=== PATIENT | female | born 1945 | race Caucasian/White ===

== ENCOUNTER → 2020-01-10 11:26 | Outpatient (BNVA) | payer MEDICARE, MEDICAID, SELFPAY | PROVIDERS: Family Provider Physician Assistant Medical; Visit Provider Nurse Practitioner Family | DX: I10 Essential (primary) hypertension (principal); I50.9 Heart failure, unspecified; R53.83 Other fatigue; E78.2 Mixed hyperlipidemia; Z79.899 Other long term (current) drug therapy; L03.90 Cellulitis, unspecified; D64.9 Anemia, unspecified; R60.9 Edema, unspecified; R06.02 Shortness of breath | CPT/HCPCS: 36415; 80053; 80061; 81001; 82607; 83036; 83540; 83880; 84443; 85025 ==

== ENCOUNTER 2020-09-28 18:55 | Inpatient (IN) | payer MEDICARE, MEDICAID, SELFPAY ==
[2020-09-28] VITALS (9 sets, daily range): BP systolic 78–164; BP diastolic 51–117; PULSE 97–124; RESP 16–30; TEMP 38.5; O2SAT 84–96; BMI 40.2
--- NOTE | 2020-09-28 | USCV_ITS ---
Yamileth Edge Age: 75 Gender: F : 1945 Exam Date: 09/28/2020 20:40 Ordering Phys: Technologist: Mamadou Rizvi Exam Location: [facility]_ Indication: DVT RIGHT LEFT Brachial 135.00 mmHg Brachial 130.00 mmHg Pressure (mmHg) Waveform Pressure (mmHg) Waveform 135.00 EDUCATIONAL ADVISER 135.00 135.00 DPA 135.00 1.00 Ankle/Brachial Index 1.00 FINDINGS Normal resting ABIs bilaterally CONCLUSIONS No significant arterial obstruction, based on the above findings. Dr Abdullahi Ag MD [facility] (Electronically Signed) Final Date: 29 September 2020 12:31 C MTDD
--- NOTE | 2020-09-28 19:01 | XRR_ITS ---
PROCEDURE INFORMATION: Exam: XR Chest, 1 View Exam date and time: 09/28/2020 7:44 PM Age: 75 years old Clinical indication: Shortness of breath; Patient HX: SOB, weakness, confused, back pain; Additional info: Dyspnea/hypoxia TECHNIQUE: Imaging protocol: XR of the chest Views: 1 view. COMPARISON: No relevant prior studies available. FINDINGS: Lungs: Asymmetric left basilar airspace/pleural disease. Interstitial prominence. Heart/Mediastinum: Cardiomegaly. Bones/joints: Left shoulder arthroplasty. Degenerative change and scoliosis. XR/XR chest 1V portable [id number] IMPRESSION: Asymmetric left basilar airspace/pleural disease and cardiomegaly.
--- NOTE | 2020-09-28 19:09 | ECG_ITS ---
[facility] Test Date: 2020-09-28 Pat Name: Yamileth Edge Department: Room: Gender: Female Load Tallier: : 1945 Requested By: Bakari Martinez Order Number: [id number] Tiffany MD: Abdullahi Ag M.D. Measurements Intervals [place] Rate: 127 P: -79 SC: 126 QRS: -72 QRSD: 146 T: 96 QT: 297 QTc: 432 Interpretive Statements Possible multifocal atrial tachycardia INTRAVENTRICULAR CONDUCTION DELAY [130+ ms QRS DURATION] No previous ECG available for comparison Electronically Signed On 09-29-2020 16:05:19 SENIOR PLANNING MANAGER by Abdullahi Ag M.D. [id number]
--- NOTE | 2020-09-28 19:09 | W.ED.GENADLT ---
HPI - General Adult General: Chief complaint: Fever Stated complaint: FALL/ WEAKNESS/ TEMP Time Seen by Provider: 09/28/20 19:01 History of Present Illness: HPI narrative: The patient is a 75-year-old female with past medical history CHF and lower extremity edema with cellulitis comes to the ER after multiple falls at home she did not want to come to the ER but family made her. Her right lower extremity is erythematous from ankle to proximal calf. She has bilateral edema 2+ and she is satting in the mid 80s on room air with a heart rate 113 and temperature 101.3 Associated symptoms: Reports dyspnea and rash (Right lower extremity redness); Deny chest pain, confusion, headache(s) or palpitations Review of Systems General: Reports: 10 or more systems reviewed and unremarkable except in HPI and below Const: Denies: fatigue Eyes: Denies: change in vision, blurry vision or eye redness ENMT: Denies: throat pain, swelling of lips/tongue, ear or mastoid pain or nasal congestion Card: Denies: chest pain, palpitations, irregular heart rhythm, edema, dyspnea on exertion or orthopnea Resp: Reports: dyspnea; Denies: productive cough or non-productive cough GI: Denies: abdominal pain, diarrhea or GI cramping : Denies: flank pain, difficulty voiding, urinary frequency or urinary urgency Musc: Denies: neck pain, back pain, extremity pain, joint pain, joint redness, limited range of motion or muscle weakness Skin/Breast: Reports: rash (Right lower extremity redness); Denies: pruritus, erythema, skin pain or skin tenderness Neuro: Denies: headache(s), numbness in extremities, weakness in extremities, sensory changes, difficulty walking, dizziness, confusion or Slurred speech present Psych: Denies: anxiety or depression Endo: Denies: polyuria All/Imm: Denies: urticaria, throat swelling or tongue swelling PFSH ED PFSH: Medical History (Updated 09/29/20 @ 01:16 by Bakari Martinez MD) Anemia Aortic root dilatation Cellulitis Congestive heart failure Essential hypertension Fatigue Left ventricular dysfunction Left ventricular hypertrophy Medication management Mild aortic insufficiency Mitral insufficiency Mixed hyperlipidemia Pulmonary hypertension Surgical History (Updated 01/10/20 @ 08:46 by RENALDO Andino) History of cataract extraction History of shoulder surgery Social History (Updated 01/10/20 @ 08:36 by PARTH Danielle Smoking and tobacco status: never smoked Second hand smoke exposure: No Alcohol intake: never Desire information about alcohol rehabilitation?: No Counseling given: No Desire information about substance/drug rehabilitation?: No Counseling given: No Physical Exam Const: COMMON NORMALS: no acute distress, average body habitus, patient oriented x3, no limitations, healthy appearing, alert and well nourished GENERAL APPEARANCE: well kempt, well developed and anxious NUTRITIONAL APPEARANCE: obese ORIENTATION/CONSCIOUSNESS: Yes awake, Yes oriented to person, Yes oriented to place and Yes oriented to time HENMT: COMMON NORMALS: normocephalic, external ears normal and Normal external nose present HEAD & SCALP: normal to inspection and normocephalic NOSE: Normal external nose present EXTERNAL EAR: Yes external ears normal MOUTH: Normal oral and palatal mucosa present THROAT: posterior oropharynx normal Eye: COMMON NORMALS: Equal, round and reactive pupils present and EOMs intact bilaterally GENERAL EYE: appearance normal, both eyes and all related structures PUPIL: Yes Equal, round and reactive pupils present Neck/C-Spine: COMMON NORMALS: full ROM, no lymphadenopathy, no meningeal signs and no JVD GENERAL: Yes normal visual inspection Lymph: LYMPHATIC: no lymphadenopathy noted Chest: COMMONS NORMALS: normal inspection of the chest and normal palpation of entire chest wall Resp: COMMON NORMALS: normal respiratory effort, No retractions, No use of accessory muscles, clear to auscultation bilaterally and percussion normal EFFORT & INSPECTION: Yes able to speak in complete sentences AUSCULTATION: clear to auscultation bilaterally PERCUSSION: percussion normal Cardio: COMMON NORMALS: no JVD, S1 normal heart sound present, S2 normal heart sound present and Peripheral pulses 2+ throughout RATE: tachycardic RHYTHM: other HEART SOUNDS: S1 normal heart sound present and S2 normal heart sound present PERIPHERAL PULSES: Peripheral pulses 2+ throughout GI: COMMON NORMALS: Normal to inspection, nondistended, normoactive bowel sounds present, Soft to palpation, non-tender and no masses INSPECTION: Yes normal to inspection PALPATION: Yes Soft to palpation : COMMON NORMALS: Yes no CVA tenderness BLADDER/KIDNEY EXAM: Yes no CVA tenderness Back/Pelvis: COMMON NORMALS: no CVA tenderness, thoracic and lumbar spine normal to inspection, no thoracic nor lumbar tenderness and thoraco-lumbar ROM normal Extremity: COMMON NORMALS: normal to inspection, full ROM, capillary refill normal, no joint enlargement and no pedal edema NARRATIVE EXTREMITY EXAM: Cellulitis to right lower extremity from ankle to proximal calf. Associated tenderness. GENERAL: Yes normal exam except as noted Neuro: COMMON NORMALS: patient oriented x3, CN's II-XII intact bilaterally, moves all extremities, no focal motor deficits, no sensory deficits noted and gait normal SENSORIUM/ORIENTATION: Yes alert, Yes oriented to person, Yes oriented to place and Yes oriented to time MENINGEAL SIGNS: Yes no meningeal signs Psych: COMMON NORMALS: mental status grossly normal, Normal thought process present, cooperative, normal affect and speech normal APPEARANCE: Yes well kempt ATTITUDE: Yes calm SPEECH: Yes normal speech THOUGHT PROCESS: Normal thought process present Skin: COMMON NORMALS: no rashes or lesions noted GENERAL SKIN EXAM: no rashes or lesions noted Course Vital Signs: Vital signs: Vital Signs Temperature 98.8 F 09/29/20 00:00 Pulse Rate 98 09/29/20 00:00 Respiratory Rate 18 09/28/20 22:33 Blood Pressure 118/75 09/29/20 00:00 Pulse Oximetry 94 09/29/20 00:00 MDM - General Adult MDM Narrative: Medical decision making narrative: The patient comes to the ER with a large right lower extremity cellulitis. Also white count 23.9. After arrival she began to have hypotension with 80s over 60s blood pressures. She was given a liter of fluids which improved that and started on Vanco and Zosyn. She refused chest CT and x-rays of her pelvis. I ordered norepinephrine but her pressure normalized after the fluids. Discussed with Dr. Cruz who accepts to the ICU. Lab Data: Labs: Lab Results 09/28/20 09/28/20 09/28/20 Range/Units 19:54 19:59 19:59 WBC 23.9 H (4.0-10.0) 10^3/ uL RBC 4.11 (4.1-5.3) 10^6/u L Hgb 11.0 L (11.5-15.3) g/dL Hct 36.4 L (37.0-47.0) % MCV 88.6 (81-99) fL MCH 26.8 L (28.0-34.0) pg MCHC 30.2 (30.0-36.0) g/dL RDW 13.2 (12.1-15.1) % Plt Count 316 (130-400) 10^3/c mm MPV 9.9 (7.4-10.4) fL Neut % (Auto) 89.6 % Lymph % (Auto) 3.2 % [place] % (Auto) 5.1 % Eos % (Auto) 0.0 % Baso % (Auto) 0.2 % Neut # (Auto) 21.43 H (1.8-7.7) 10^3/u L Lymph # (Auto) 0.8 (0.8-4.8) 10^3/u L [place] # (Auto) 1.2 H (0.2-0.9) 10^3/u L Eos # (Auto) 0.0 (0.0-0.8) 10^3/u L Baso # (Auto) 0.1 (0.0-0.1) 10^3/u L Nucleated RBC % (a uto) 0 % Nucleated RBCs # 0.0 /100WBC D-Dimer 4.04 H (0-0.59) ug/mIFE U Sodium (136-145) mmol/L Potassium (3.5-5.1) mmol/L Chloride (98-107) mmol/L Carbon Dioxide (22-29) mmol/L Anion Gap (5-19) BUN (8-23) mg/dL Creatinine (0.5-0.9) mg/dL GFR Calculation Glucose (65-115) mg/dL Calculated Osmolal ity (285-295) mOsm/k g Lactate (0.5-2.2) mmol/L Calcium (8.5-10.5) mg/dL Total Bilirubin (0.15-1.2) mg/dL AST (0-32) U/L ALT (0-33) U/L Alkaline Phosphata se (35-105) IU/L Troponin T Baselin e (0-10) ng/L Troponin T 120 Min [place] (0-10) ng/L Delta Troponin T (0-10) ABS# NT-Pro-B Natriuret Pep (0-450) pg/mL Total Protein (6.6-8.7) g/dL Albumin (3.5-5.2) g/dL Globulin (1.3-4.6) g/dL Urine Color Yellow (Yellow) Urine Appearance Cloudy (CLEAR) Urine pH 5 (5-7) Ur Specific Gravit y 1.015 (1.005-1.030) Urine Protein Neg (Negative) Urine Glucose (UA) Norm (Normal) Urine Ketones Negative (Negative) Urine Blood Neg (Negative) Urine Nitrate Negative (Negative) Urine Bilirubin Neg (Negative) Urine Urobilinogen Norm (Negative) mg/dL Ur Leukocyte Eneida ase Negative (Negative) Urine RBC None (0-2) /hpf Urine WBC None (0-5) /hpf Ur Squamous Epith Cells 0-4 H (0-5) /hpf Amorphous Sediment 3+ /hpf Urine Bacteria Trace (NONE) /hpf Hyaline Casts 0-4 H /lpf 09/28/20 09/28/20 09/28/20 Range/Units 19:59 19:59 19:59 WBC (4.0-10.0) 10^3/ uL RBC (4.1-5.3) 10^6/u L Hgb (11.5-15.3) g/dL Hct (37.0-47.0) % MCV (81-99) fL MCH (28.0-34.0) pg MCHC (30.0-36.0) g/dL RDW (12.1-15.1) % Plt Count (130-400) 10^3/c mm MPV (7.4-10.4) fL Neut % (Auto) % Lymph % (Auto) % [place] % (Auto) % Eos % (Auto) % Baso % (Auto) % Neut # (Auto) (1.8-7.7) 10^3/u L Lymph # (Auto) (0.8-4.8) 10^3/u L [place] # (Auto) (0.2-0.9) 10^3/u L Eos # (Auto) (0.0-0.8) 10^3/u L Baso # (Auto) (0.0-0.1) 10^3/u L Nucleated RBC % (a uto) % Nucleated RBCs # /100WBC D-Dimer (0-0.59) ug/mIFE U Sodium 135 L (136-145) mmol/L Potassium 4.4 (3.5-5.1) mmol/L Chloride 93 L (98-107) mmol/L Carbon Dioxide 31 H (22-29) mmol/L Anion Gap 15.4 (5-19) BUN 27 H (8-23) mg/dL Creatinine 1.2 H (0.5-0.9) mg/dL GFR Calculation Not Reportable Glucose 120 H (65-115) mg/dL Calculated Osmolal ity 286 (285-295) mOsm/k g Lactate 1.1 (0.5-2.2) mmol/L Calcium 10.3 (8.5-10.5) mg/dL Total Bilirubin 0.6 (0.15-1.2) mg/dL AST 15 (0-32) U/L ALT 10 (0-33) U/L Alkaline Phosphata se 220 H (35-105) IU/L Troponin T Baselin e 83 H (0-10) ng/L Troponin T 120 Min [place] (0-10) ng/L Delta Troponin T (0-10) ABS# NT-Pro-B Natriuret Pep 2136 H (0-450) pg/mL Total Protein 7.2 (6.6-8.7) g/dL Albumin 3.4 L (3.5-5.2) g/dL Globulin 3.8 (1.3-4.6) g/dL Urine Color (Yellow) Urine Appearance (CLEAR) Urine pH (5-7) Ur Specific Gravit y (1.005-1.030) Urine Protein (Negative) Urine Glucose (UA) (Normal) Urine Ketones (Negative) Urine Blood (Negative) Urine Nitrate (Negative) Urine Bilirubin (Negative) Urine Urobilinogen (Negative) mg/dL Ur Leukocyte Eneida ase (Negative) Urine RBC (0-2) /hpf Urine WBC (0-5) /hpf Ur Squamous Epith Cells (0-5) /hpf Amorphous Sediment /hpf Urine Bacteria (NONE) /hpf Hyaline Casts /lpf 09/28/20 Range/Units 21:09 WBC (4.0-10.0) 10^3/ uL RBC (4.1-5.3) 10^6/u L Hgb (11.5-15.3) g/dL Hct (37.0-47.0) % MCV (81-99) fL MCH (28.0-34.0) pg MCHC (30.0-36.0) g/dL RDW (12.1-15.1) % Plt Count (130-400) 10^3/c mm MPV (7.4-10.4) fL Neut % (Auto) % Lymph % (Auto) % [place] % (Auto) % Eos % (Auto) % Baso % (Auto) % Neut # (Auto) (1.8-7.7) 10^3/u L Lymph # (Auto) (0.8-4.8) 10^3/u L [place] # (Auto) (0.2-0.9) 10^3/u L Eos # (Auto) (0.0-0.8) 10^3/u L Baso # (Auto) (0.0-0.1) 10^3/u L Nucleated RBC % (a uto) % Nucleated RBCs # /100WBC D-Dimer (0-0.59) ug/mIFE U Sodium (136-145) mmol/L Potassium (3.5-5.1) mmol/L Chloride (98-107) mmol/L Carbon Dioxide (22-29) mmol/L Anion Gap (5-19) BUN (8-23) mg/dL Creatinine (0.5-0.9) mg/dL GFR Calculation Glucose (65-115) mg/dL Calculated Osmolal ity (285-295) mOsm/k g Lactate (0.5-2.2) mmol/L Calcium (8.5-10.5) mg/dL Total Bilirubin (0.15-1.2) mg/dL AST (0-32) U/L ALT (0-33) U/L Alkaline Phosphata se (35-105) IU/L Troponin T Baselin e (0-10) ng/L Troponin T 120 Min [place] 89.29 H (0-10) ng/L Delta Troponin T 6.29 (0-10) ABS# NT-Pro-B Natriuret Pep (0-450) pg/mL Total Protein (6.6-8.7) g/dL Albumin (3.5-5.2) g/dL Globulin (1.3-4.6) g/dL Urine Color (Yellow) Urine Appearance (CLEAR) Urine pH (5-7) Ur Specific Gravit y (1.005-1.030) Urine Protein (Negative) Urine Glucose (UA) (Normal) Urine Ketones (Negative) Urine Blood (Negative) Urine Nitrate (Negative) Urine Bilirubin (Negative) Urine Urobilinogen (Negative) mg/dL Ur Leukocyte Eneida ase (Negative) Urine RBC (0-2) /hpf Urine WBC (0-5) /hpf Ur Squamous Epith Cells (0-5) /hpf Amorphous Sediment /hpf Urine Bacteria (NONE) /hpf Hyaline Casts /lpf Discharge Plan Discharge Patient Disposition: Admitted As Inpatient Admit Provider: Elliot Cruz Clinical Impression: Severe sepsis, Cellulitis, Acute kidney injury, Elevated troponin Condition: Stable Coding Level of Care Code ED Fisher Spear for Chg Fwd Exam Comprehensive
--- NOTE | 2020-09-28 19:39 | USCV_ITS ---
Yamileth Edge Age: 75 Gender: F : 1945 Exam Date: 09/28/2020 20:30 Ordering Phys: Bakari Martinez MD Technologist: Mamadou Rizvi Exam Location: [facility] Indication: RT LEG PAIN AND SWELLING HISTORY: Lower extremity edema. PROCEDURES: Venous duplex imaging was performed in only the right lower extremity. The following venous structures were evaluated: common femoral vein, profunda vein, proximal portion of the greater saphenous vein, superficial femoral vein, and the popliteal vein. In addition, the posterior tibial and peroneal trunk were evaluated. On the right side, the common femoral, superficial femoral, profunda femoral, popliteal, posterior tibial, greater saphenous veins and the peroneal trunk were identified and interrogated in the standard fashion. These veins were found to be easily compressible with spontaneous blood flow. No evidence of insufficiency or thrombus noted. FINDINGS: Normal 2-D Doppler and augmentation and compressibility throughout the lower extremity venous structures. Additional imaging through the proximal calf veins also reveals no thrombus. Limited evaluation of the greater saphenous vein is patent with no thrombus.. CONCLUSIONS No evidence of DVT in the above-mentioned identifiable veins. Dr Abdullahi Ag MD [facility] (Electronically Signed) Final Date: 29 September 2020 12:28 S
[2020-09-28 20:11] LABS: Basophils # 0.1 10^3/uL (0.0-0.1); Basophils % 0.2 %; Hematocrit 36.4 % (37.0-47.0); Lymphocytes # 0.8 10^3/uL (0.8-4.8); Lymphocytes % 3.2 %; Mean Corpuscular HGB Conc 30.2 g/dL (30.0-36.0); Mean Corpuscular Hemoglobin 26.8 pg (28.0-34.0); Mean Corpuscular Volume 88.6 fL (81-99); Mean Platelet Volume 9.9 fL (7.4-10.4); Monocytes # 1.2 10^3/uL (0.2-0.9); Monocytes % 5.1 %; Neutrophils # 21.43 10^3/uL (1.8-7.7); Neutrophils % 89.6 %; Nucleated Red Blood Cells % 0 %; Platelet Count 316 10^3/cmm (130-400); Red Blood Count 4.11 10^6/uL (4.1-5.3); Red Cell Distribution Width 13.2 % (12.1-15.1); White Blood Count 23.9 10^3/uL (4.0-10.0)
[2020-09-28] MEDS: acetaminophen 500 mg Tablet 1000 MG PO (20:15)
[2020-09-28] MEDS: piperacillin-tazobactam 3.375 GM in sodium chloride 0.9% (plus) 50 ML IV (20:15)
[2020-09-28 20:25] LABS: Bilirubin Urine Neg (Negative); Blood Urine Neg (Negative); Glucose Urine UA Norm (Normal); Ketones Urine Negative (Negative); Leukocyte Esterase Urine Negative (Negative); Nitrate Urine Negative (Negative); Protein Urine Neg (Negative); Specific Gravity, Urine 1.015 (1.005-1.030); Urine Appearance Cloudy (CLEAR); Urine Color Yellow (Yellow); Urobilinogen Urine Norm (Negative); pH Urine 5 (5-7)
[2020-09-28 20:26] LABS: Add Urine Microscopic? YES
[2020-09-28] MEDS: sodium chloride 0.9% 1,000 ML 999 ML IV (20:53)
[2020-09-28 20:55] LABS: Add Urine Culture? No; Amorphous Sediment Urine 3+ /hpf; Bacteria Urine TRACE /hpf; Hyaline Casts Urine 0-4 /lpf; Squamous Epithelial Cell Urine 0-4 /hpf (0-5)
[2020-09-28 21:07] LABS: Lactate (Lactic Acid level) 1.1 mmol/L (0.5-2.2)
--- NOTE | 2020-09-28 21:09 | ECG_ITS ---
[facility] Test Date: 2020-09-28 Pat Name: Yamileth Edge Department: Room: Gender: Female Business Analytics Specialist: : 1945 Requested By: Bakari Martinez Order Number: [id number] Tiffany MD: Abdullahi Ag M.D. Measurements Intervals [place] Rate: 110 P: -66 DC: 144 QRS: -61 QRSD: 133 T: 67 QT: 319 QTc: 433 Interpretive Statements ECTOPIC ATRIAL TACHYCARDIA LEFT AXIS DEVIATION [QRS AXIS < -30] INTRAVENTRICULAR CONDUCTION DELAY [130+ ms QRS DURATION] MINIMAL VOLTAGE CRITERIA FOR LVH, CONSIDER NORMAL VARIANT [MEETS CRITERIA IN ONE OF: R(aVL), S(V1), R(V5), R(V5/V6)+S(V1)] Compared to ECG 09/28/2020 19:49:35 Left-axis deviation now present Junctional tachycardia no longer present Electronically Signed On 09-29-2020 16:10:47 LOOSELEAF BINDER COVERER by Abdullahi Ag M.D. [id number]
[2020-09-28 21:12] LABS: D Dimer 4.04 ug/mIFEU (0-0.59)
[2020-09-28 21:14] LABS: Troponin(5th) Baseline 83 ng/L (0-10)
[2020-09-28 21:22] LABS: Alanine Aminotransferase 10 U/L (0-33); Albumin Level 3.4 g/dL (3.5-5.2); Alkaline Phosphatase 220 IU/L (35-105); Anion Gap 15.4 (5-19); Aspartate Amino Transferase 15 U/L (0-32); Blood Urea Nitrogen 27 mg/dL (8-23); Calcium 10.3 mg/dL (8.5-10.5); Carbon Dioxide 31 mmol/L (22-29); Chloride 93 mmol/L (98-107); Globulin 3.8 g/dL (1.3-4.6); Glucose 120 mg/dL (65-115); NT Pro B Type Natriuretic Pept 2136 pg/mL (0-450); Osmolality Calculated 286 mOsm/kg (285-295); Potassium 4.4 mmol/L (3.5-5.1); Sodium 135 mmol/L (136-145); Total Bilirubin 0.6 mg/dL (0.15-1.2); Total Protein 7.2 g/dL (6.6-8.7)
[2020-09-28] MEDS: morphine 4 mg/mL SDV 1 mL 1 MG IVP (22:33)
--- NOTE | 2020-09-28 22:46 | PC.PHAR ---
Vancomycin is dosed at 1250mg IVPB every 24 hours to produce a predicted trough level of 17.24 (population based pharmacokinetic analysis. A trough level has been ordered from the lab to be obtained before the fourth dose to confirm and adjust if needed.
[2020-09-28] MEDS: vancomycin 1,250 MG/250 ML PIGGYBACK 250 MG IV (22:57)
--- NOTE | 2020-09-28 23:04 | P.HP_ITS ---
Providers/Chief Complaint Primary Care Provider: RENALDO Owen Chief Complaint: FALL/ WEAKNESS/ TEMP History of Present Illness Yamileth Edge is a 75 year old female who carries history of redo ejection fraction heart failure, lower extremity edema, aortic regurgitation, pulmonary hypertension presented today with chief complaint of right lower extremity pain. Patient is stating that her leg swelling is chronic which has recently gotten worse she has seen needle loom operator who recommended diuretics she takes Lasix 80 mg a day, despite diuretics her leg edema has not been improving, she has been noticing more crusting, open wounds and now it has become more swollen and red. She is also noticing some purulent discharge as well. At home she also noticed fever. She is denying chest pain, endorsing orthopnea, PND, she sleeps in a r ecliner. Uses a cane and a walker for ambulation. She fell today, was found by her family on the floor around noon. Patient is stating that she did not experience any syncopal event, she just could not get enough strength to walk on her own and fell on the ground. Diagnostics in the ER revealed CHF exacerbation, cellulitis, sepsis, she was given vancomycin and Zosyn, I have requested blood cultures and change her Lasix to Bumex, initially she was hypotensive, judicious use of fluids secondary to CHF in the ER with seemed to improved her blood pressure, she was awake alert no signs of encephalopathy, [id number] was at the bedside, patient could not lay flat that is why refused CTA, I will go ahead and anticoagulate her with Lovenox because of extremely high D-dimer. In the ER she only received 1 L normal saline bolus which seemed to improve the blood pressure from systolic of 70 to 80s mmhg to 124mmhg systolic Review of Systems Const: Reports: body aches, fatigue and malaise; Denies: fever(s) or chills Eyes: Denies: change in vision ENMT: Denies: throat pain Card: Reports: edema, swelling of feet/ankles, dyspnea on exertion and orthopnea; Denies: chest pain Resp: Reports: dyspnea GI: Denies: abdominal pain : Denies: flank pain Musc: Reports: extremity pain, joint swelling, joint stiffness, limited range of motion, muscle cramps and muscle weakness Skin/Breast: Reports: rash, new lesions, changing lesions, non-healing lesions, lesions, changes in skin color and dry skin Neuro: Reports: difficulty walking; Denies: headache(s) Psych: Reports: anxiety Endo: Denies: polyuria Jt/Lymph: Denies: easy bruising All/Imm: Denies: urticaria Medications/Allergies Home Medications Medication Instructions Recorded Confirmed Last Taken Type cephalexin 500 mg capsule 500 mg PO QID 5 Days #20 cap 02/14/20 Unknown Rx tizanidine 4 mg capsule 2 mg PO BID PRN cap 02/25/20 02/25/20 Unknown History aspirin 81 mg tablet,delayed 81 mg PO DAILY #90 tab 03/13/20 Unknown Rx release furosemide 40 mg tablet 80 mg PO DAILY #180 tab 03/13/20 Unknown Rx lisinopril 20 mg tablet 20 mg PO DAILY #90 tab 03/13/20 Unknown Rx amlodipine 5 mg tablet 5 mg PO DAILY #90 tab 03/20/20 Unknown Rx lovastatin 40 mg tablet 80 mg PO .HS #180 tab 05/08/20 Unknown Rx metoprolol tartrate 25 mg tablet 25 mg PO BID #180 tab 06/21/20 Unknown Rx potassium chloride 20 mEq 40 meq PO DAILY #60 tab 09/12/20 Unknown Rx tablet,extended release(part/cryst) Allergies Allergy/AdvReac Type Severity Reaction Status Date / Time diclofenac Allergy Intermediate sick Verified 02/25/20 10:36 PFSH Acute PFSH: Medical History Anemia Aortic root dilatation Cellulitis Congestive heart failure Essential hypertension Fatigue Left ventricular dysfunction Left ventricular hypertrophy Medication management Mild aortic insufficiency Mitral insufficiency Mixed hyperlipidemia Pulmonary hypertension Surgical History History of cataract extraction History of shoulder surgery Social History Smoking and tobacco status: never smoked Second hand smoke exposure: No Alcohol intake: never Desire information about alcohol rehabilitation?: No Counseling given: No Desire information about substance/drug rehabilitation?: No Counseling given: No Vitals/I&O/Wt Last Vital Signs Temp 101.3 F H 09/28/20 18:57 Pulse 97 09/28/20 22:59 Resp 18 09/28/20 22:33 BP 99/51 09/28/20 22:59 Pulse Ox 94 09/28/20 22:59 09/28/20 09/28/20 09/29/20 14:59 22:59 06:59 Intake Total 1072.875 / 1072.875 Balance 1072.875 / 1072.875 Weight last 48 hrs Weight 99.79 kg Physical Exam Narrative: EXAM NARRATIVE: elderly female who appears more than stated age, unkept appearance Irritable mood S1, S2 active signs of heart failure bilateral lower extremity edema Venous stasis dermatitis with purulent cellulitis right leg, skin excoriation with multiple open wounds Patient is complaining of right hip pain however no vascular compromise evident No active chest pain Bilateral breath sounds without acute respiratory distress Abdomen distended central obesity nontender Irritable mood No joint swelling Patient was saturating well on 2 L nasal cannula, at the time of my evaluation her blood pressure improved 124/74 mmHg Data : 09/28/20 19:59 09/28/20 19:59 A&P Assessment and plan (1) Severe sepsis: Status: Acute (2) Acute kidney injury: Status: Acute (3) Lower extremity edema: Status: Acute (4) CHF exacerbation: Status: Acute Additional A&P Information Sepsis Purulent cellulitis right lower extremity Criteria met with tachypnea tachycardia leukocytosis, fever Continue vancomycin and Zosyn, to be renally dosed Obtain blood cultures 1 L normal saline seemed to improve the blood pressure, I would avoid adding more fluids because of CHF exacerbation, will monitor in ICU and will use vasopressors if required Acute heart failure reduced action fraction exacerbation I would use Bumex instead of Lasix, judicious use of fluids EF 40% with aortic and mitral valve regurgitation She follows up with Dr. Lamar Will obtain venous Doppler of right extremity Acute kidney injury This is most likely cardiorenal in nature with active CHF exacerbation Anticipating improvement with diuresis Holding lisinopril Acute hypoxic respiratory failure I would use therapeutic dose of Lovenox because of high D-dimer patient refused CTA she could not lay flat for the imaging Currently she is requiring 2 L nasal cannula which is new No active chest pain Cardiac diet DVT prophylaxis therapeutic Lovenox Full code Attestations Medical Necessity Statement*: Anticipating stay in the hospital course more than 2 midnights for CHF and sepsis purulent cellulitis, Time Spent in Patient Care: (>than 50% of time spent in counselling and/or direct pt care on unit) . 50mins Coding Level of Care Code Acute Spare Fixer for Chg Fwd Diagnoses Severe sepsis A41.9; R65.20 Acute kidney injury N17.9 Lower extremity edema R60.0 CHF exacerbation I50.9
--- NOTE | 2020-09-28 23:33 | PC.NURSE ---
patient given water by nurse
[2020-09-28 23:43] LABS: Troponin 5 2HR 89.29 ng/L (0-10); Troponin 5 2HR Delta 6.29 ABS# (0-10)
[2020-09-29] VITALS (165 sets, daily range): BP systolic 89–174; BP diastolic 57–113; PULSE 79–108; RESP 16–46; TEMP 36.7–37.8; O2SAT 2–100
--- NOTE | 2020-09-29 01:09 | ECG_ITS ---
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 Measurements Intervals [place] Rate: 90 P: -2 MN: 169 QRS: -54 QRSD: 144 T: -8 QT: 358 QTc: 440 Interpretive Statements SINUS RHYTHM LEFT AXIS DEVIATION [QRS AXIS < -30] LEFT BUNDLE BRANCH BLOCK [120+ ms QRS DURATION, 80+ ms Q/S IN V1/V2, 85+ ms R IN I/aVL/V5/V6] Compared to ECG 09/28/2020 21:37:40 Left bundle-branch block now present Intraventricular conduction delay no longer present Electronically Signed On 09-29-2020 16:12:00 RACE CAR DRIVER by Abdullahi Ag M.D. [id number]
[2020-09-29 02:17] LABS: Troponin 5 6HR 75.02 ng/L (0-10)
--- NOTE | 2020-09-29 02:43 | PC.NURSE ---
Patient presented to ICU room at 0230, VS obtained up until that point via ED
--- NOTE | 2020-09-29 03:41 | PC.PHAR ---
Patient weight is reduced 56.608 kg resulting in Vancomycin dosage adjustment from 1250g IVPB every 24 hours to 750mg IVPB every 24 hours to produce a calculated trough level of 18.11 (population based pharmacokinetic analysis.. Zosyn dosage remains at 3.375gm IVPB every 8 hours on basis of creatinine clearance of 44.059.
[2020-09-29] MEDS: enoxaparin 100 mg/mL Syringe SUBCUT ×2 (03:51→15:57)
[2020-09-29] MEDS: piperacillin-tazobactam 3.375 GM in sodium chloride 0.9% (plus) 50 ML IV ×3 (03:52→22:59)
[2020-09-29 05:21] LABS: Basophils # 0.1 10^3/uL (0.0-0.1); Basophils % 0.3 %; Hemoglobin 10.4 g/dL (11.5-15.3); Lymphocytes # 1.3 10^3/uL (0.8-4.8); Lymphocytes % 5.8 %; Mean Corpuscular HGB Conc 29.7 g/dL (30.0-36.0); Mean Corpuscular Hemoglobin 26.5 pg (28.0-34.0); Mean Corpuscular Volume 89.1 fL (81-99); Mean Platelet Volume 10.4 fL (7.4-10.4); Monocytes # 1.2 10^3/uL (0.2-0.9); Monocytes % 5.3 %; Neutrophils # 18.94 10^3/uL (1.8-7.7); Neutrophils % 87.5 %; Nucleated Red Blood Cells % 0 %; Platelet Count 292 10^3/cmm (130-400); Red Blood Count 3.93 10^6/uL (4.1-5.3); Red Cell Distribution Width 13.3 % (12.1-15.1); White Blood Count 21.6 10^3/uL (4.0-10.0)
[2020-09-29 05:44] LABS: Anion Gap 13.9 (5-19); Blood Urea Nitrogen 29 mg/dL (8-23); Calcium 9.4 mg/dL (8.5-10.5); Carbon Dioxide 30 mmol/L (22-29); Chloride 96 mmol/L (98-107); Glucose 129 mg/dL (65-115); Osmolality Calculated 290 mOsm/kg (285-295); Potassium 3.9 mmol/L (3.5-5.1); Sodium 136 mmol/L (136-145)
--- NOTE | 2020-09-29 05:49 | PC.NURSE ---
there is a period of time between 03:59 and 05:02 where the monitor malfunctioned and didn't take BP
--- NOTE | 2020-09-29 07:46 | PC.NURSE ---
up in chair off levophed at this time am brk served at this time
[2020-09-29] MEDS: aspirin 81 mg EC Tablet PO (08:39)
[2020-09-29] MEDS: bumetanide 1 mg Tablet PO (08:39)
[2020-09-29] MEDS: potassium chloride ER 20 mEq Tablet 40 MEQ PO (08:39)
--- NOTE | 2020-09-29 09:57 | PC.PHAR ---
pt states she takes care of her own medications-pt states she has been taking lasix 40mg po tid-ext med history shows 80mg daily filled on 09/12/20 90d/s-pt states she is only taking 20meq po daily-ext med history shows last filled on 09/12/20 40meq po daily-pt states she has only taken one tab daily of kcl since 2002-
--- NOTE | 2020-09-29 10:25 | PC.NURSE ---
assisted back to bed very weak at this time walked short distranse with walker back to bed
--- NOTE | 2020-09-29 15:02 | P.PN_ITS ---
Subjective Subjective: Interval history: Off norepinephrine. Feels better. No fever or chills. Reports swelling and redness in the right lower extremity. No nausea vomiting. No diarrhea. Denies chest pain or shortness of breath. No dizziness or lightheadedness. Medications: Reviewed: Yes Medication Review Details: Generic Name Dose Route Start Last Admin Trade Name Mehnaz PRN Reason Stop Dose Admin Aspirin 81 mg 09/29/20 09:00 09/29/20 08:39 Aspirin 81 Mg Ec Tablet PO 81 mg DAILY VANDANA Administration Bumetanide 1 mg 09/29/20 09:00 09/29/20 08:39 Bumetanide 1 Mg Tablet PO 1 mg DAILY VANDANA Administration Enoxaparin Sodium 100 mg 09/29/20 03:15 09/29/20 03:51 Enoxaparin 100 M g/Ml Syringe 1 mg/kg (100 mg) 100 mg SUBCUT Administration Q12H VANDANA Norepinephrine Bit artrate 4 mg 254 mls @ 0 mls/h r 09/28/20 20:45 09/29/20 06:36 / Dextrose IV 0 mcg/min .Q0M VANDANA 0 mls/hr Titration Protocol Per Protocol Piperacillin Sod/T azobactam 50 mls @ 12.5 mls /hr 09/29/20 04:15 09/29/20 09:45 Sod 3.375 gm/ So dium Chloride IV Infused Q8H VANDANA Infusion Potassium Chloride 40 meq 09/29/20 09:00 09/29/20 08:39 Potassium Chlori de Er 20 Meq Table t PO 40 meq DAILY VANDANA Administration Vitals/I&O/Wt Last Vital Signs Temp 100.0 F H 09/29/20 13:00 Pulse 88 09/29/20 14:50 Resp 41 H 09/29/20 14:50 BP 126/93 09/29/20 14:50 Pulse Ox 96 09/29/20 14:50 09/29/20 09/29/20 09/29/20 06:59 14:59 22:59 Intake Total 423.974 / 1496.849 465.833 / 465.833 Output Total 350 / 350 Balance 73.974 / 1146.849 465.833 / 465.833 Weight last 48 hrs Weight 56.608 kg Weight 99.79 kg Physical Exam Narrative: EXAM NARRATIVE: Awake alert oriented. No acute distress. Mood and affect are appropriate. Responses are adequate. Skin is warm and dry. Moist extremities. Neck supple. No JVD Lungs clear to auscultation bilaterally Heart S1, S2, regular Abdomen is soft, nontender, bowel sounds are present Extremities. Severe swelling and redness and chronic venous stasis of the right lower extremity. Hyperemia is present. Neuro examination is nonfocal. Generalized diffuse weakness is present. Eyes PERRL, extraocular muscles are intact. Normal but scant speech. Data : 09/29/20 04:23 09/29/20 04:23 Micro: Microbiology 09/29/20 04:23 Blood Culture - Preliminary Blood SPECIMEN COLLECTED 09/29/20 04:23 Blood Culture - Preliminary Blood SPECIMEN COLLECTED A&P Assessment and plan (1) Severe sepsis: Status: Acute (2) Acute kidney injury: Status: Acute (3) Lower extremity edema: Status: Acute (4) CHF exacerbation: Status: Acute Additional A&P Information Sepsis Purulent cellulitis right lower extremity Criteria met with tachypnea tachycardia leukocytosis, fever Continue vancomycin and Zosyn, to be renally dosed Obtain blood cultures 1 L normal saline seemed to improve the blood pressure, I would avoid adding more fluids because of CHF exacerbation, will monitor in ICU and will use vasopressors if required Acute heart failure reduced action fraction exacerbation I would use Bumex instead of Lasix, judicious use of fluids EF 40% with aortic and mitral valve regurgitation She follows up with Dr. Lamar Will obtain venous Doppler of right extremity Acute kidney injury This is most likely cardiorenal in nature with active CHF exacerbation Anticipating improvement with diuresis Holding lisinopril Acute hypoxic respiratory failure I would use therapeutic dose of Lovenox because of high D-dimer patient refused CTA she could not lay flat for the imaging Currently she is requiring 2 L nasal cannula which is new No active chest pain Cardiac diet DVT prophylaxis therapeutic Lovenox Full code [place] Sepsis. Currently stabilized. Off norepinephrine drip. Probably secondary to right lower extremity cellulitis. Continue Zosyn and vancomycin. We will minimize IV fluids due to concerns of CHF. Acute hypoxic respiratory failure. Currently stable with small amount of supplemental oxygen. Concerns of PE. CTA was not feasible on admission. Will order VQ scan. Dop pler was negative. If the VQ is negative we will stop full anticoagulation. CHF acute exacerbation. EF of 40%. Discussed with the patient's primary toppiece chopper Dr. Lamar. We discussed the findings and the plan of care. Will order a new echo. Conservative management for now. No additional testing is recommended. New left bundle branch block without chest pain. We discussed this with Dr. Yaakov Carvalho as well. He does not feel that this is acute coronary syndrome. Troponin elevation is most likely related to sepsis and demand ischemia. Continue conservative management. Right lower extremity severe swelling and cellulitis. Wound care consult. Will order MRI to rule out osteomyelitis or abscesses. Will consult podiatry or Ortho if we find any evidence of osteomyelitis or abscess. DVT prophylaxis. Currently on full dose of Lovenox. We will switch to prophylactic dose when PE is ruled out. Anemia. Stable. Continue monitoring. Mild acute kidney injury versus chronic kidney disease. Continue monitoring. The plan of care was discussed with the patient and her family member at the bedside. They verbalized understanding and agreement. They verbalized satisfaction with the conversation. Code care time spent on this encounter is 35 minutes. Attestations Medical Necessity Statement*: It is in pretty serious condition in ICU with multiple serious medical findings. Requires full anticoagulation and IV antibiotics. Coding Level of Care Code Acute Journeyman Lineman for Chg Fwd Diagnoses Severe sepsis A41.9; R65.20 Acute kidney injury N17.9 Lower extremity edema R60.0 CHF exacerbation I50.9
--- NOTE | 2020-09-29 15:33 | PC.NURSE ---
pt and daughter in room unable to tolerate laying flat at all for any xrays and tests daughter agrees with that at this time
--- NOTE | 2020-09-29 16:17 | XRR_ITS ---
PROCEDURE INFORMATION: Exam: XR Right Tibia and Fibula Exam date and time: 09/29/2020 4:53 PM Age: 75 years old Clinical indication: Pain; Lower leg; Right TECHNIQUE: Imaging protocol: XR Right tibia and fibula. Views: 2 views. COMPARISON: No relevant prior studies available. FINDINGS: Bones/joints: Negative for acute bony abnormality is seen. Osteopenia is seen. Narrowing and sclerotic changes are seen in the medial compartment of the knee. Soft tissues: Unremarkable. XR/XR tibia fibula RT 2V [id number] IMPRESSION: 1. Osteopenia and osteoarthritis 2. Otherwise No acute findings.
--- NOTE | 2020-09-29 16:22 | XRR_ITS ---
PROCEDURE INFORMATION: Exam: XR Right Foot Exam date and time: 09/29/2020 4:53 PM Age: 75 years old Clinical indication: Pain; Foot; Right TECHNIQUE: Imaging protocol: XR Right foot. Views: 1 or 2 views. COMPARISON: No relevant prior studies available. FINDINGS: Bones/joints: Negative for acute bony abnormality. There is mild osteoarthritis seen. Soft tissues: Normal. XR/XR foot RT 2V [id number] IMPRESSION: No acute findings.
[2020-09-29] MEDS: vitamin A & D oint 1 APPLIC TOPICAL (17:24)
[2020-09-29] MEDS: vancomycin 750 MG in sodium chloride 0.9% 250 ML 250 MG IV (22:51)
[2020-09-30] VITALS (102 sets, daily range): BP systolic 84–186; BP diastolic 63–110; PULSE 84–116; RESP 18–36; TEMP 37.2–37.6; O2SAT 90–96
--- NOTE | 2020-09-30 06:04 | PC.NURSE ---
Uneventful shift, no changes in patient. Continue care.
[2020-09-30] MEDS: aspirin 81 mg EC Tablet PO (09:33)
[2020-09-30] MEDS: enoxaparin 40 mg/0.4 mL Syringe SUBCUT (09:33)
[2020-09-30] MEDS: potassium chloride ER 20 mEq Tablet 40 MEQ PO (09:33)
[2020-09-30] MEDS: piperacillin-tazobactam 3.375 GM in sodium chloride 0.9% (plus) 50 ML IV ×2 (09:33→17:46)
[2020-09-30] MEDS: bumetanide 1 mg Tablet PO (09:33)
[2020-09-30] MEDS: vitamin A & D oint 1 APPLIC TOPICAL ×2 (09:37→17:56)
--- NOTE | 2020-09-30 13:09 | USR_ITS ---
PROCEDURE INFORMATION: Exam: US Unlisted Ultrasound Procedure Exam date and time: 09/30/2020 1:25 PM Age: 75 years old Clinical indication: Pain; Patient status: Conscious; Pain: Ulcer RT leg with swelling; Additional info: ? Abcess TECHNIQUE: Imaging protocol: Unlisted ultrasound procedure (eg, diagnostic, interventional). COMPARISON: No relevant prior studies available. FINDINGS: Procedural imaging: Ultrasound imaging of the right leg through an area of swelling was performed. The examination showed subcutaneous edema. No other localized fluid collections are seen. No abscess was detected. US/US soft tissue/extremity [id number] IMPRESSION: 1. Subcutaneous edema. 2. No abscess is seen.
--- NOTE | 2020-09-30 14:15 | PM.PN ---
Subjective Subjective: Interval history: Doing okay. Denies any active complaints. No fever or chills. No nausea or vomiting. No diarrhea. No chest pain, shortness of breath, cough, palpitations. Medications: Reviewed: Yes Medication Review Details: Generic Name Dose Route Start Last Admin Trade Name Mehnaz PRN Reason Stop Dose Admin Aspirin 81 mg 09/29/20 09:00 09/30/20 09:33 Aspirin 81 Mg Ec Tablet PO 81 mg DAILY VANDANA Administration Bumetanide 1 mg 09/29/20 09:00 09/30/20 09:33 Bumetanide 1 Mg Tablet PO 1 mg DAILY VANDANA Administration Enoxaparin Sodium 40 mg 09/30/20 09:00 09/30/20 09:33 Enoxaparin 40 Mg /0.4 Ml Syringe SUBCUT 40 mg Q24H VANDANA Administration Norepinephrine Bit artrate 4 mg 254 mls @ 0 mls/h r 09/28/20 20:45 09/29/20 06:36 / Dextrose IV 0 mcg/min .Q0M VANDANA 0 mls/hr Titration Protocol Per Protocol Piperacillin Sod/T azobactam 50 mls @ 12.5 mls /hr 09/29/20 04:15 09/30/20 13:55 Sod 3.375 gm/ So dium Chloride IV Infused Q8H VANDANA Infusion Vancomycin HCl 750 mg/ Sodium 250 mls @ 250 mls /hr 09/29/20 23:00 09/30/20 00:23 Chloride IV Infused Q24H VANDANA Infusion Potassium Chloride 40 meq 09/29/20 09:00 09/30/20 09:33 Potassium Chlori de Er 20 Meq Table t PO 40 meq DAILY VANDANA Administration Vitamin A/Vitamin D 1 applic 09/29/20 18:00 09/30/20 09:37 Vitamin A & D Oi nt TOPICAL 1 applic BID VANDANA Administration Vitals/I&O/Wt Last Vital Signs Temp 99.0 F 09/30/20 05:30 Pulse 101 H 09/30/20 13:15 Resp 27 H 09/30/20 13:00 BP 84/72 09/30/20 13:15 Pulse Ox 96 09/30/20 08:00 09/29/20 09/30/20 09/30/20 22:59 06:59 14:59 Intake Total 370 / 835.833 420 / 1255.833 452 / 452 Output Total 800 / 800 600 / 1400 Balance -430 / 35.833 -180 / -144.167 452 / 452 Weight last 48 hrs Weight 56.608 kg Weight 99.79 kg Physical Exam Narrative: EXAM NARRATIVE: Awake alert oriented. No acute distress. Mood and affect are appropriate. Responses are adequate. Skin is warm and dry. Moist extremities. Neck supple. No JVD Lungs clear to auscultation bilaterally Heart S1, S2, regular Abdomen is soft, nontender, bowel sounds are present Extremities. Severe swelling and redness and chronic venous stasis of the right lower extremity. Hyperemia is present. Neuro examination is nonfocal. Generalized diffuse weakness is present. Eyes PERRL, extraocular muscles are intact. Normal but scant speech. Data : 09/29/20 04:23 09/29/20 04:23 Micro: Microbiology 09/29/20 04:23 Blood Culture - Preliminary Blood NEGATIVE TO DATE 09/29/20 04:23 Blood Culture - Preliminary Blood NEGATIVE TO DATE A&P Assessment and plan (1) Severe sepsis: Status: Acute (2) Acute kidney injury: Status: Acute (3) Lower extremity edema: Status: Acute (4) CHF exacerbation: Status: Acute Additional A&P Information Sepsis Purulent cellulitis right lower extremity Criteria met with tachypnea tachycardia leukocytosis, fever Continue vancomycin and Zosyn, to be renally dosed Obtain blood cultures 1 L normal saline seemed to improve the blood pressure, I would avoid adding more fluids because of CHF exacerbation, will monitor in ICU and will use vasopressors if required Acute heart failure reduced action fraction exacerbation I would use Bumex instead of Lasix, judicious use of fluids EF 40% with aortic and mitral valve regurgitation She follows up with Dr. Lamar Will obtain venous Doppler of right extremity Acute kidney injury This is most likely cardiorenal in nature with active CHF exacerbation Anticipating improvement with diuresis Holding lisinopril Acute hypoxic respiratory failure I would use therapeutic dose of Lovenox because of high D-dimer patient refused CTA she could not lay flat for the imaging Currently she is requiring 2 L nasal cannula which is new No active chest pain Cardiac diet DVT prophylaxis therapeutic Lovenox Full code [place] Sepsis. Currently stabilized. Probably secondary to right lower extremity cellulitis. Continue Zosyn and vancomycin. We will minimize IV fluids due to concerns of CHF. Acute hypoxic respiratory failure. Resolved. Currently stable with small amount of supplemental oxygen. Concerns of PE. CTA was not feasible on admission. The patient refused VQ scan. Currently there is no evidence of PE. Full dose Lovenox is discontinued. CHF acute exacerbation. EF of 40%. Discussed with the patient's primary carpenter helper hardwood flooring Dr. Lamar. We discussed the findings and the plan of care. Will order a new echo. Conservative management for now. No additional testing is recommended. New left bundle branch block without chest pain. We discussed this with Dr. Lamar as well. He does not feel that this is acute coronary syndrome. Troponin elevation is most likely related to sepsis and demand ischemia. Continue conservative management. Right lower extremity severe swelling and cellulitis. Wound care consult. Refused MRI. X-ray did not show osteomyelitis. Ultrasound was negative for abscesses. DVT prophylaxis. Prophylactic Lovenox dose. Anemia. Stable. Continue monitoring. Mild acute kidney injury versus chronic kidney disease. Continue monitoring. The plan of care was discussed with the patient she verbalized understanding and agreement. Attestations Medical Necessity Statement*: The patient still requires IV antibiotics and close monitoring. Coding Level of Care Code Acute Brake Lining Driller for Chg Fwd Diagnoses Severe sepsis A41.9; R65.20 Acute kidney injury N17.9 Lower extremity edema R60.0 CHF exacerbation I50.9
--- NOTE | 2020-09-30 19:29 | PC.NURSE ---
AO x4, slight SOB noted, O2 sat low 80's RA placed on 2L NC O2 sat currently 90, denies pain and SOB at this time, answers questions and follows commands, RLE weeping, dressing clean and dry at this time
[2020-09-30] MEDS: vancomycin 750 MG in sodium chloride 0.9% 250 ML 250 MG IV (23:55)
[2020-10-01] VITALS (26 sets, daily range): BP systolic 121–172; BP diastolic 77–96; PULSE 77–113; RESP 19–35; TEMP 36.6–37.2; O2SAT 76–97
[2020-10-01] MEDS: piperacillin-tazobactam 3.375 GM in sodium chloride 0.9% (plus) 50 ML IV ×3 (02:22→17:13)
[2020-10-01 04:39] LABS: Basophils % 0.5 %; Eosinophils # 0.1 10^3/uL (0.0-0.8); Hematocrit 32.4 % (37.0-47.0); Hemoglobin 9.5 g/dL (11.5-15.3); Lymphocytes # 1.3 10^3/uL (0.8-4.8); Lymphocytes % 15.5 %; Mean Corpuscular HGB Conc 29.3 g/dL (30.0-36.0); Mean Corpuscular Hemoglobin 26.9 pg (28.0-34.0); Mean Corpuscular Volume 91.8 fL (81-99); Mean Platelet Volume 10.3 fL (7.4-10.4); Monocytes # 0.6 10^3/uL (0.2-0.9); Monocytes % 7.4 %; Neutrophils # 6.24 10^3/uL (1.8-7.7); Neutrophils % 75.2 %; Nucleated Red Blood Cells % 0 %; Platelet Count 289 10^3/cmm (130-400); Red Blood Count 3.53 10^6/uL (4.1-5.3); Red Cell Distribution Width 13.3 % (12.1-15.1); White Blood Count 8.3 10^3/uL (4.0-10.0)
[2020-10-01 05:04] LABS: Procalcitonin 5.57 ng/mL (0-0.5)
[2020-10-01 05:19] LABS: Alanine Aminotransferase 24 U/L (0-33); Albumin Level 2.8 g/dL (3.5-5.2); Alkaline Phosphatase 150 IU/L (35-105); Anion Gap 12.1 (5-19); Aspartate Amino Transferase 34 U/L (0-32); Blood Urea Nitrogen 18 mg/dL (8-23); C Reactive Protein 145.9 mg/L (0.0-4.9); Calcium 9.8 mg/dL (8.5-10.5); Carbon Dioxide 29 mmol/L (22-29); Chloride 98 mmol/L (98-107); Globulin 3.6 g/dL (1.3-4.6); Glucose 102 mg/dL (65-115); Magnesium 2.2 mg/dL (1.7-2.3); Osmolality Calculated 280 mOsm/kg (285-295); Potassium 5.1 mmol/L (3.5-5.1); Sodium 134 mmol/L (136-145); Total Bilirubin 0.3 mg/dL (0.15-1.2); Total Protein 6.4 g/dL (6.6-8.7)
--- NOTE | 2020-10-01 06:31 | PC.NURSE ---
uneventful night, no C/O pain, denies SOB
[2020-10-01] MEDS: potassium chloride ER 20 mEq Tablet 40 MEQ PO (08:29)
[2020-10-01] MEDS: enoxaparin 40 mg/0.4 mL Syringe SUBCUT (08:30)
[2020-10-01] MEDS: bumetanide 1 mg Tablet PO (08:30)
[2020-10-01] MEDS: aspirin 81 mg EC Tablet PO (08:30)
[2020-10-01] MEDS: vitamin A & D oint 1 APPLIC TOPICAL ×2 (09:53→17:39)
--- NOTE | 2020-10-01 13:28 | PC.NURSE ---
attempt to get pt back to bed to echo family at bedside pt refused at this time ... i sleep in a chair all the time
--- NOTE | 2020-10-01 13:43 | PM.PN ---
Subjective Subjective: Interval history: Doing okay. Denies any active complaints. No fever or chills. No nausea or vomiting. No diarrhea. No chest pain, shortness of breath, cough, palpitations. Vitals/I&O/Wt Last Vital Signs Temp 98 F 10/01/20 10:00 Pulse 89 10/01/20 13:00 Resp 25 H 10/01/20 13:00 BP 145/87 10/01/20 10:00 Pulse Ox 77 L 10/01/20 12:00 09/30/20 10/01/20 10/01/20 22:59 06:59 14:59 Intake Total 250 / 702 300 / 1002 600 / 600 Output Total 600 / 600 550 / 1150 1150 / 1150 Balance -350 / 102 -250 / -148 -550 / -550 Physical Exam Narrative: EXAM NARRATIVE: Awake alert oriented. No acute distress. Mood and affect are appropriate. Responses are adequate. Skin is warm and dry. Moist extremities. Neck supple. No JVD Lungs clear to auscultation bilaterally Heart S1, S2, regular Abdomen is soft, nontender, bowel sounds are present Extremities. Severe swelling and redness and chronic venous stasis of the right lower extremity. Hyperemia is present. Neuro examination is nonfocal. Generalized diffuse weakness is present. Eyes PERRL, extraocular muscles are intact. Normal but scant speech. Data : 10/01/20 03:20 10/01/20 03:20 A&P Assessment and plan (1) Severe sepsis: Status: Acute (2) Acute kidney injury: Status: Acute (3) Lower extremity edema: Status: Acute (4) CHF exacerbation: Status: Acute Additional A&P Information Sepsis Purulent cellulitis right lower extremity Criteria met with tachypnea tachycardia leukocytosis, fever Continue vancomycin and Zosyn, to be renally dosed Obtain blood cultures 1 L normal saline seemed to improve the blood pressure, I would avoid adding more fluids because of CHF exacerbation, will monitor in ICU and will use vasopressors if required Acute heart failure reduced action fraction exacerbation I would use Bumex instead of Lasix, judicious use of fluids EF 40% with aortic and mitral valve regurgitation She follows up with Dr. Lamar Will obtain venous Doppler of right extremity Acute kidney injury This is most likely cardiorenal in nature with active CHF exacerbation Anticipating improvement with diuresis Holding lisinopril Acute hypoxic respiratory failure I would use therapeutic dose of Lovenox because of high D-dimer patient refused CTA she could not lay flat for the imaging Currently she is requiring 2 L nasal cannula which is new No active chest pain Cardiac diet DVT prophylaxis therapeutic Lovenox Full code [place] Sepsis. Currently stabilized. Probably secondary to right lower extremity cellulitis. Continue Zosyn and vancomycin. Leukocytosis is improving. We will minimize IV fluids due to concerns of CHF. Acute hypoxic respiratory failure. Resolved. Currently stable with small amount of supplemental oxygen. Concerns of PE. CTA was not feasible on admission. The patient refused VQ scan. Currently there is no evidence of PE. Full dose Lovenox is discontinued. CHF acute exacerbation. EF of 40%. Discussed with the patient's primary grounds cleaner Dr. Lamar. We discussed the findings and the plan of care. Conservative management for now. No additional testing is recommended. New left bundle branch block without chest pain. We discussed this with Dr. Lamar as well. He does not feel that this is acute coronary syndrome. Troponin elevation is most likely related to sepsis and demand ischemia. Continue conservative management. Right lower extremity severe swelling and cellulitis. Wound care consult. Refused MRI. X-ray did not show osteomyelitis. Ultrasound was negative for abscesses. DVT prophylaxis. Prophylactic Lovenox dose. Anemia. Stable. Continue monitoring. Mild acute kidney injury versus chronic kidney disease. Continue monitoring. Acute on chronic deconditioning and debilitated state. PT OT. Case management will assess discharge needs. The plan of care was discussed with the patient she verbalized understanding and agreement. Attestations Medical Necessity Statement*: Possible discharge in a day or 2. Coding Level of Care Code Acute Manager Of Training And Development for [facility] Fwd Diagnoses Severe sepsis A41.9; R65.20 Acute kidney injury N17.9 Lower extremity edema R60.0 CHF exacerbation I50.9
--- NOTE | 2020-10-01 14:19 | USCV_ITS ---
Yamileth Edge Age: 75 Gender: F : 1945 Exam Date: 10/01/2020 14:06 Ordering Phys: Vladislav Jackson MD Technologist: Barby King Exam Location: [facility] [place] Indication: CHF BP: 158 / 85 HR: 82 Rhythm: Sinus Technical Quality: Suboptimal MEASUREMENTS (Male / Female) Normal Values 2D ECHO LV Diastolic Diameter PLAX 5.8 cm 4.2 - 5.9 / 3.9 - 5.3 cm LV Systolic Diameter PLAX 4.8 cm LV Chamber Size 5.6 cm IVS Diastolic Thickness 1.5 cm 0.6 - 1.0 / 0.6 - 0.9 cm IVS Systolic Thickness 1.4 cm LVPW Diastolic Thickness 1.4 cm 0.6 - 1.0 / 0.6 - 0.9 cm LVPW Systolic Thickness 1.3 cm RV Chamber Size 3.0 cm LVOT Diameter 1.9 cm LV Ejection Fraction 2D Teich 35.5 % LA Diameter 4.1 cm LA Width 4.5 cm LA Height 6.9 cm RA Width 4.0 cm RA Height 6.6 cm Aorta at Sinotubular Diameter 3.7 cm M-MODE LV Diastolic Diameter MM 6.0 cm 4.2 - 5.9 / 3.9 - 5.3 cm LV Systolic Diameter MM 4.9 cm LV Ejection Fraction MM Teich 39.2 % IVS Diastolic Thickness MM 1.9 cm 0.6 - 1.0 / 0.6 - 0.9 cm IVS Systolic Thickness MM 1.8 cm LVPW Diastolic Thickness MM 1.4 cm 0.6 - 1.0 / 0.6 - 0.9 cm LVPW Systolic Thickness MM 1.6 cm RV Diastolic Diameter MM 1.2 cm Aortic Annulus Diameter 4.9 cm LA Ao Ratio MM 0.8 MV E Point Septal Separation 1.8 cm DOPPLER AV Peak Velocity 226.8 cm/s LVOT Peak Velocity 131.0 cm/s AV Area Cont Eq vti 1.8 cm squared AV Area Cont Eq pk 1.6 cm squared MV Area PHT 5.0 cm squared Mitral E to A Ratio 0.7 MV E' Velocity 49.8 cm/s Mitral E to MV E' Ratio 8.0 Mitral E to LV E' Lateral Ratio 8.0 Mitral E to LV E' Septal Ratio 8.1 TV Peak E Velocity 110.0 cm/s Right Atrial Pressure 8.0 mmHg FINDINGS Left Ventricle Probably normal left ventricle size and systolic function. Left ventricular ejection fraction is estimated at 55 %. This study is inadequate for estimation of regional wall motion abnormality. Grade I diastolic dysfunction (abnormal relaxation filling pattern), normal to mildly elevated filling pressures. Right Ventricle Right ventricle not well visualized. Normal right ventricular size and systolic function. Right Atrium Normal right atrial size. Right atrial pressure estimated at 8 mmHg. Left Atrium Mildly increased left atrial size. Mitral Valve Moderate mitral annular calcification. No mitral valve stenosis. No significant mitral valve regurgitation. Aortic Valve Aortic valve not well visualized. Thickened and calcified aortic valve. Mild aortic valve stenosis, peak velocity 2.5 m/s, peak gradient 25 mmHg, mean gradient 14 mmHg, DENNYS 1.8 cm squared. Mild- to-moderate aortic valve regurgitation. Tricuspid Valve Tricuspid valve not well visualized. Pulmonic Valve Pulmonic valve not well visualized. Pericardium No pericardial effusion. Aorta Aortic root not well visualized however appears to be normal sized. 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 Dilated inferior vena cava with normal respiratory variation. CONCLUSIONS 1. This is a technically very difficult study. 2. Probably normal left ventricle size and systolic function. Left ventricular ejection fraction is estimated at 55 %. This study is inadequate for estimation of regional wall motion abnormality. Grade I diastolic dysfunction (abnormal relaxation filling pattern), normal to mildly elevated filling pressures. 3. Mildly increased left atrial size. 4. Mild aortic valve stenosis, peak velocity 2.5 m/s, peak gradient 25 mmHg, mean gradient 14 mmHg, DENNYS 1.8 cm squared. Mild-to- moderate aortic valve regurgitation. 5. 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 6. When compared to previous echocardiogram dated 11/10/2017, there may not have been any significant change. Elli Siddiqui MD (Electronically Signed) Final Date: 01 October 2020 18:53 S
--- NOTE | 2020-10-01 16:39 | PC.NURSE ---
up in chair at this time has been up with staff to bsc dressing changed to right leg noted less scaling to area at this time attempted to keep elevated at this time
[2020-10-01] MEDS: guaiFENesin 600 mg Tablet PO (17:12)
--- NOTE | 2020-10-01 18:55 | PC.NURSE ---
Received bed side shift report from off going nurse. Pt's plan of care reviewed. Pt sitting up in recliner. Respirations are even and unlabored. No s/sx of distress noted. Pt is alert and oriented and able to make her own decisions. Pt denies any pains or concerns at this time. Pt request to be put back to bed. Pt was able to use walker and place herself back to be with 1 person assist. Pt tolerated well. Bed in lowest and locked position, call light and water within reach, x's 2 rails up. Will continue to monitor.
[2020-10-01 22:45] LABS: Vancomycin Trough 6.2 ug/mL (10-15)
[2020-10-01] MEDS: ALPRAZolam 0.25 mg Tablet 0.125 MG PO (23:07)
--- NOTE | 2020-10-01 23:24 | PC.PHAR ---
Vancomycin trough on dosage of 750mg IVPB every 24 hours is 6.2. Dosage is increased to 1250mg IVPB every 24 hours with trough to be obtained before the fourth 1250mg dose.
[2020-10-01] MEDS: vancomycin 1,250 MG/250 ML PIGGYBACK 250 MG IV (23:29)
[2020-10-02] VITALS (19 sets, daily range): BP systolic 115–178; BP diastolic 70–103; PULSE 74–107; RESP 17–34; TEMP 36.1–37.1; O2SAT 91–99
[2020-10-02] MEDS: piperacillin-tazobactam 3.375 GM in sodium chloride 0.9% (plus) 50 ML IV ×3 (02:16→19:55)
[2020-10-02 05:53] LABS: Basophils # 0.1 10^3/uL (0.0-0.1); Basophils % 0.6 %; Eosinophils # 0.1 10^3/uL (0.0-0.8); Eosinophils % 1.6 %; Hematocrit 36.7 % (37.0-47.0); Hemoglobin 10.5 g/dL (11.5-15.3); Lymphocytes # 1.4 10^3/uL (0.8-4.8); Lymphocytes % 17.8 %; Mean Corpuscular HGB Conc 28.6 g/dL (30.0-36.0); Mean Corpuscular Hemoglobin 26.4 pg (28.0-34.0); Mean Corpuscular Volume 92.2 fL (81-99); Mean Platelet Volume 10.1 fL (7.4-10.4); Monocytes # 0.6 10^3/uL (0.2-0.9); Monocytes % 7.4 %; Neutrophils # 5.79 10^3/uL (1.8-7.7); Neutrophils % 72.2 %; Nucleated Red Blood Cells % 0 %; Platelet Count 300 10^3/cmm (130-400); Red Blood Count 3.98 10^6/uL (4.1-5.3); Red Cell Distribution Width 12.8 % (12.1-15.1)
[2020-10-02 06:19] LABS: Procalcitonin 2.44 ng/mL (0-0.5)
[2020-10-02 06:31] LABS: Albumin Level 2.9 g/dL (3.5-5.2); Blood Urea Nitrogen 14 mg/dL (8-23); C Reactive Protein 77.9 mg/L (0.0-4.9); Calcium 10.4 mg/dL (8.5-10.5); Carbon Dioxide 29 mmol/L (22-29); Chloride 94 mmol/L (98-107); Glucose 94 mg/dL (65-115); Phosphorus 2.2 mg/dL (2.5-4.5); Sodium 131 mmol/L (136-145)
--- NOTE | 2020-10-02 08:00 | PC.NURSE ---
Patient sitting up in chair for breakfast, denies pain or needs, discussed plan of care, morning hygiene completed and placed new gown on patient. call light in reach.
[2020-10-02] MEDS: phosphorus 250 mg Tablet PO ×2 (08:21→19:55)
[2020-10-02] MEDS: bumetanide 1 mg Tablet PO (08:21)
[2020-10-02] MEDS: potassium chloride ER 20 mEq Tablet 40 MEQ PO (08:22)
[2020-10-02] MEDS: enoxaparin 40 mg/0.4 mL Syringe SUBCUT (08:22)
[2020-10-02] MEDS: aspirin 81 mg EC Tablet PO (08:22)
[2020-10-02] MEDS: guaiFENesin 600 mg Tablet PO ×2 (08:22→19:55)
[2020-10-02] MEDS: vitamin A & D oint 1 APPLIC TOPICAL (08:25)
--- NOTE | 2020-10-02 09:34 | PC.CHAP ---
Pastoral Care Encounter/Spiritual Assessment Type of Contact [] Declined steel sash erector visit [] Patient/Family/Request visit [] Outpatient visit [] Follow-up visit [] Physician referral [] Code/Alert [x] Routine visit [] Staff referral [] Actively dying [] Patient sleeping [] Family support [] [] Out of room [] Palliative care [] [] Receiving care in room [] Pre-surgical visit [] Trauma [] Long length of stay [x] ICU visit [] Other: Relational/Emotional Strength [] Patient feels connected with others/family/visitors/staff [] Distress [] Loneliness/isolation [] Abandonment Spirituality of Patient [] Person of Elizabeth [] Attends Rastafari of their Elizabeth [] Believes in Prayer [] Reads Bible or Sabianism materials [] There are Spiritual issues to be addressed Storehouse Clerk Interventions [x] Prayer [] Active listening [] Non-anxious presence [] Spiritual/emotional support [] Crisis/trauma care [] Spiritual counseling [] Bereavement support [] Provided bereavement packet [] Provided Bible/devotional materials [] Provided toy/stuffed animal, coloring book to patient or family member [] Provided Communion [] Anointing/Hope [] Salvation [x] Completed spiritual assessment [] Other: Impact on Illness or Injury [] Angry [] Fearful [] Anxious [] Often cries [] Exhaustion [] Unable to work [] Unable to attend alevism [] Unable to walk/stand [] Unable to read [] Unable to drive [] Unable to eat/drink [] Unable to sleep [] Unable to be with family [] Patient intubated [] Other: Summary Time spent with patient
--- NOTE | 2020-10-02 09:46 | PC.NURSE ---
WOUND CARE BID A and D ointment applied to pt's right lower leg, telfa x5 placed over the affected areas-(redness,to right lower leg, tissue is intact and edematous), secured with an kerlex and taped in place paper tape per physician's orders. Pt tolerated well. Will continue to monitor.
--- NOTE | 2020-10-02 10:36 | PC.NURSE ---
Assisted patient to bedside commode unable to have BM, reports constipation, Dr. Ren notified of constipation, awaiting new orders.
[2020-10-02] MEDS: polyethylene glycol 3350 Pkt 17 gm PO (11:09)
--- NOTE | 2020-10-02 12:36 | PM.PN ---
Subjective Subjective: Interval history: This morning patient was examined, she is sitting up in the chair, her only complaints that she really wants to go home, but was glad that she was here in the hospital for the last few days as it was quite cold outside and she hates the smell, she is tired of being here in the hospital, she is alert oriented x3, answers all questions appropriately, no fevers, no chills, no nausea, no vomiting, Medications: Reviewed: Yes Medication Review Details: Generic Name Dose Route Start Last Admin Trade Name Mhenaz PRN Reason Stop Dose Admin Aspirin 81 mg 09/29/20 09:00 09/30/20 09:33 Aspirin 81 Mg Ec Tablet PO 81 mg DAILY VANDANA Administration Bumetanide 1 mg 09/29/20 09:00 09/30/20 09:33 Bumetanide 1 Mg Tablet PO 1 mg DAILY VANDANA Administration Enoxaparin Sodium 40 mg 09/30/20 09:00 09/30/20 09:33 Enoxaparin 40 Mg /0.4 Ml Syringe SUBCUT 40 mg Q24H VANDANA Administration Norepinephrine Bit artrate 4 mg 254 mls @ 0 mls/h r 09/28/20 20:45 09/29/20 06:36 / Dextrose IV 0 mcg/min .Q0M VANDANA 0 mls/hr Titration Protocol Per Protocol Piperacillin Sod/T azobactam 50 mls @ 12.5 mls /hr 09/29/20 04:15 09/30/20 13:55 Sod 3.375 gm/ So dium Chloride IV Infused Q8H VANDANA Infusion Vancomycin HCl 750 mg/ Sodium 250 mls @ 250 mls /hr 09/29/20 23:00 09/30/20 00:23 Chloride IV Infused Q24H VANDANA Infusion Potassium Chloride 40 meq 09/29/20 09:00 09/30/20 09:33 Potassium Chlori de Er 20 Meq Table t PO 40 meq DAILY VANDANA Administration Vitamin A/Vitamin D 1 applic 09/29/20 18:00 09/30/20 09:37 Vitamin A & D Oi nt TOPICAL 1 applic BID VANDANA Administration Vitals/I&O/Wt Last Vital Signs Temp 98.7 F 10/02/20 12:00 Pulse 81 10/02/20 12:00 Resp 19 H 10/02/20 12:00 BP 145/95 10/02/20 12:00 Pulse Ox 96 10/02/20 12:00 10/01/20 10/02/20 10/02/20 22:59 06:59 14:59 Intake Total 50 / 700 300 / 1000 300 / 300 Output Total 1500 / 2650 1100 / 3750 775 / 775 Balance -1450 / -1950 -800 / -2750 -475 / -475 Physical Exam Const: COMMON NORMALS: no acute distress and patient oriented x3 HENMT: COMMON NORMALS: normocephalic HEAD & SCALP: normocephalic Neck/C-Spine: COMMON NORMALS: no JVD Resp: COMMON NORMALS: normal respiratory effort, No retractions, No use of accessory muscles and clear to auscultation bilaterally AUSCULTATION: clear to auscultation bilaterally Cardio: COMMON NORMALS: no JVD, regular rate, regular rhythm, S1 normal heart sound present and S2 normal heart sound present RATE: regular rate RHYTHM: regular rhythm HEART SOUNDS: S1 normal heart sound present and S2 normal heart sound present GI: COMMON NORMALS: Normal to inspection, nondistended, normoactive bowel sounds present, Soft to palpation, non-tender, No hepatosplenomegaly present, no masses and no bruits PALPATION: Yes Soft to palpation and Yes No hepatosplenomegaly present Extremity: COMMON NORMALS: capillary refill normal NARRATIVE EXTREMITY EXAM: Right lower extremity, just above the ankle, area of erythema, swelling, warmth roughly square, 4 x 5 cm, receding below marked borders Neuro: COMMON NORMALS: patient oriented x3 Psych: COMMON NORMALS: mental status grossly normal Data : 10/02/20 04:49 10/02/20 04:49 A&P Assessment and plan (1) Severe sepsis: Status: Acute (2) Acute kidney injury: Status: Acute (3) Lower extremity edema: Status: Acute (4) CHF exacerbation: Status: Acute Additional A&P Information Sepsis secondary to purulent cellulitis right lower extremity Sepsis has resolved Right lower extremity continues to look red hot, warm, but improved, Patient has refused MRIs,, will hold off for now Continue vancomycin and Zosyn, to be renally dosed Follow blood cultures so far negative Venous ultrasounds negative for DVT ABIs negative for any significant obstruction Acute heart failure reduced action fraction exacerbation I would use Bumex instead of Lasix, judicious use of fluids EF 40% with aortic and mitral valve regurgitation She follows up with Dr. Lamar Will obtain venous Doppler of right extremity Acute kidney injury This is most likely cardiorenal in nature with active CHF exacerbation Anticipating improvement with diuresis Holding lisinopril Acute hypoxic respiratory failure Currently she is requiring 2 L nasal cannula which is new No active chest pain Concerns of PE. CTA was not feasible on admission. The patient refused VQ scan. Currently there is no evidence of PE. Full dose Lovenox is discontinued. New left bundle branch block without chest pain. We discussed this with Dr. Lamar as well. He does not feel that this is acute coronary syndrome. Troponin elevation is most likely related to sepsis and demand ischemia. Continue conservative management. DVT prophylaxis. Prophylactic Lovenox dose. Anemia. Stable. Continue monitoring. Mild acute kidney injury versus chronic kidney disease. Continue monitoring. Acute on chronic deconditioning and debilitated state. PT OT. Case management will assess discharge needs. The plan of care was discussed with the patient she verbalized understanding and agreement. Attestations Medical Necessity Statement*: Patient requires hospitalization for sepsis secondary to cellulitis, will be moved to general medical floors Coding Level of Care Code Acute Television Production Clerk for g Fwd Exam Comprehensive Diagnoses Severe sepsis A41.9; R65.20 Acute kidney injury N17.9 Lower extremity edema R60.0 CHF exacerbation I50.9
[2020-10-02] MEDS: amlodipine 5 mg Tablet PO (13:19)
--- NOTE | 2020-10-02 14:42 | PC.NURSE ---
Report given to oncoming nurse, patient transferred to [facility] with belongings via wheelchair, assisted to bed, call light in reach, side rails up X2, JET MECHANIC from [facility] in room taking vitals.
--- NOTE | 2020-10-02 15:05 | PC.SOCIAL ---
*IMM* Patient received IM from Medicare. Signed, gave a copy to patient copy placed in the chart.
[2020-10-02] MEDS: atorvastatin 40 mg Tablet 20 MG PO (22:16)
[2020-10-03] VITALS (7 sets, daily range): BP systolic 114–142; BP diastolic 68–84; PULSE 74–98; RESP 17–18; TEMP 36–36.8; O2SAT 93–97
[2020-10-03] MEDS: vancomycin 1,250 MG/250 ML PIGGYBACK 250 MG IV (00:32)
[2020-10-03] MEDS: piperacillin-tazobactam 3.375 GM in sodium chloride 0.9% (plus) 50 ML IV ×3 (01:55→17:47)
[2020-10-03 06:09] LABS: Basophils % 0.6 %; Eosinophils # 0.3 10^3/uL (0.0-0.8); Eosinophils % 3.6 %; Hematocrit 36.3 % (37.0-47.0); Hemoglobin 10.6 g/dL (11.5-15.3); Lymphocytes # 1.2 10^3/uL (0.8-4.8); Lymphocytes % 16.9 %; Mean Corpuscular HGB Conc 29.2 g/dL (30.0-36.0); Mean Corpuscular Hemoglobin 26.7 pg (28.0-34.0); Mean Corpuscular Volume 91.4 fL (81-99); Mean Platelet Volume 10.2 fL (7.4-10.4); Monocytes # 0.7 10^3/uL (0.2-0.9); Monocytes % 9.2 %; Neutrophils # 4.96 10^3/uL (1.8-7.7); Neutrophils % 69.3 %; Nucleated Red Blood Cells % 0 %; Platelet Count 298 10^3/cmm (130-400); Red Blood Count 3.97 10^6/uL (4.1-5.3); Red Cell Distribution Width 12.5 % (12.1-15.1); White Blood Count 7.2 10^3/uL (4.0-10.0)
[2020-10-03 06:39] LABS: Alanine Aminotransferase 32 U/L (0-33); Alkaline Phosphatase 160 IU/L (35-105); Anion Gap 10.8 (5-19); Aspartate Amino Transferase 35 U/L (0-32); Blood Urea Nitrogen 13 mg/dL (8-23); C Reactive Protein 46.2 mg/L (0.0-4.9); Calcium 10.2 mg/dL (8.5-10.5); Carbon Dioxide 34 mmol/L (22-29); Chloride 95 mmol/L (98-107); Globulin 3.6 g/dL (1.3-4.6); Glucose 94 mg/dL (65-115); Magnesium 2.1 mg/dL (1.7-2.3); Osmolality Calculated 280 mOsm/kg (285-295); Phosphorus 2.8 mg/dL (2.5-4.5); Potassium 4.8 mmol/L (3.5-5.1); Sodium 135 mmol/L (136-145); Total Bilirubin 0.5 mg/dL (0.15-1.2); Total Protein 6.6 g/dL (6.6-8.7)
[2020-10-03 07:06] LABS: Procalcitonin 1.38 ng/mL (0-0.5)
[2020-10-03] MEDS: polyethylene glycol 3350 Pkt 17 gm PO (09:14)
[2020-10-03] MEDS: bumetanide 1 mg Tablet PO (09:15)
[2020-10-03] MEDS: phosphorus 250 mg Tablet PO ×2 (09:15→17:48)
[2020-10-03] MEDS: enoxaparin 40 mg/0.4 mL Syringe SUBCUT (09:17)
[2020-10-03] MEDS: amlodipine 5 mg Tablet PO (09:17)
[2020-10-03] MEDS: guaiFENesin 600 mg Tablet PO ×2 (09:17→17:47)
[2020-10-03] MEDS: aspirin 81 mg EC Tablet PO (09:17)
[2020-10-03] MEDS: potassium chloride ER 20 mEq Tablet 40 MEQ PO (09:17)
--- NOTE | 2020-10-03 10:00 | PC.SOCIAL ---
Verbal order from Dr. Ren for PT/OT one time a week for lifetime put in.
[2020-10-03] MEDS: vitamin A & D oint 1 APPLIC TOPICAL ×2 (10:27→18:01)
--- NOTE | 2020-10-03 10:30 | PC.NURSE ---
patient is complaining of pain and has no pain med ordered. Talent Development Analyst notified Dr Ren.
[2020-10-03] MEDS: HYDROcodone-acetaminophen 5-325 mg Tablet 1 TAB PO (13:15)
[2020-10-03 13:27] LABS: Erythrocyte Sedimentation Rate 92 mm/hr (0-15)
--- NOTE | 2020-10-03 13:55 | PC.NURSE ---
Tiffany with PT is requested that mortgage loan underwriter contact Dr Ren and she if she can do lymphedema wrap to right leg only. Rvcd message from Dr Ren, lymphedema wrap only on leg with no cellulitis. Notified Dr Ren that patient refuses CT.
--- NOTE | 2020-10-03 13:57 | PC.NURSE ---
Private Investigator notified Tiffany of Dr Ren's answer to the lymphedema wrap.
--- NOTE | 2020-10-03 15:59 | P.PN_ITS ---
Subjective Subjective: Interval history: She was examined multiple times throughout the day, right lower extremity looks red hot warm, worried about deep tissue infection, possible osteomyelitis. ESR 72, however patient has adamantly refused in the past that she does not want to go through the tube, she cannot lie flat. I gave him the morning extensively spent over 30 minutes going over with patient that she will not go through the tube, only her leg well, will try her best to keep her upright. When CT came to take her down at around 3 PM she refused. I have again gone up at roughly 4 PM to pleaded with patient to undergo CT scan, as she is worried about underlying osteomyelitis, she has a high risk of osteomyelitis, significant morbidity mortality, amputation, sepsis, she voices any, all questions answered. Patient states that she will try to do the CT but cannot guarantee that she will be able to do it Medications: Reviewed: Yes Medication Review Details: Generic Name Dose Route Start Last Admin Trade Name Rommelq PRN Reason Stop Dose Admin Aspirin 81 mg 09/29/20 09:00 09/30/20 09:33 Aspirin 81 Mg Ec Tablet PO 81 mg DAILY VANDANA Administration Bumetanide 1 mg 09/29/20 09:00 09/30/20 09:33 Bumetanide 1 Mg Tablet PO 1 mg DAILY VANDANA Administration Enoxaparin Sodium 40 mg 09/30/20 09:00 09/30/20 09:33 Enoxaparin 40 Mg /0.4 Ml Syringe SUBCUT 40 mg Q24H VANDANA Administration Norepinephrine Bit artrate 4 mg 254 mls @ 0 mls/h r 09/28/20 20:45 09/29/20 06:36 / Dextrose IV 0 mcg/min .Q0M VANDANA 0 mls/hr Titration Protocol Per Protocol Piperacillin Sod/T azobactam 50 mls @ 12.5 mls /hr 09/29/20 04:15 09/30/20 13:55 Sod 3.375 gm/ So dium Chloride IV Infused Q8H VANDANA Infusion Vancomycin HCl 750 mg/ Sodium 250 mls @ 250 mls /hr 09/29/20 23:00 09/30/20 00:23 Chloride IV Infused Q24H VANDANA Infusion Potassium Chloride 40 meq 09/29/20 09:00 09/30/20 09:33 Potassium Chlori de Er 20 Meq Table t PO 40 meq DAILY VANDANA Administration Vitamin A/Vitamin D 1 applic 09/29/20 18:00 09/30/20 09:37 Vitamin A & D Oi nt TOPICAL 1 applic BID VANDANA Administration Vitals/I&O/Wt Last Vital Signs Temp 96.8 F L 10/03/20 15:20 Pulse 88 10/03/20 15:20 Resp 17 10/03/20 15:20 BP 114/73 10/03/20 15:20 Pulse Ox 96 10/03/20 15:20 10/03/20 10/03/20 10/03/20 06:59 14:59 22:59 Intake Total 650 / 1000 290 / 290 Output Total 900 / 2675 400 / 400 Balance -250 / -1675 -110 / -110 Physical Exam Const: COMMON NORMALS: no acute distress and patient oriented x3 HENMT: COMMON NORMALS: normocephalic HEAD & SCALP: normocephalic Neck/C-Spine: COMMON NORMALS: no JVD Resp: COMMON NORMALS: normal respiratory effort, No retractions, No use of accessory muscles and clear to auscultation bilaterally AUSCULTATION: clear to auscultation bilaterally Cardio: COMMON NORMALS: no JVD, regular rate, regular rhythm, S1 normal heart sound present and S2 normal heart sound present RATE: regular rate RHYTHM: regular rhythm HEART SOUNDS: S1 normal heart sound present and S2 normal heart sound present GI: COMMON NORMALS: Normal to inspection, nondistended, normoactive bowel sounds present, Soft to palpation, non-tender, No hepatosplenomegaly present, no masses and no bruits PALPATION: Yes Soft to palpation and Yes No hepatosplenomegaly present Extremity: COMMON NORMALS: capillary refill normal and no clubbing, cyanosis or edema NARRATIVE EXTREMITY EXAM: Right lower extremity, hughes level, 3 x 4 cm area that is red, hot, warm, erythematous Neuro: COMMON NORMALS: patient oriented x3 Psych: COMMON NORMALS: mental status grossly normal Data : 10/03/20 05:23 10/03/20 05:23 Micro: Microbiology 10/01/20 16:15 MRSA Culture - Final Nose A&P Assessment and plan (1) Severe sepsis: Status: Acute (2) Acute kidney injury: Status: Acute (3) Lower extremity edema: Status: Acute (4) CHF exacerbation: Status: Acute Additional A&P Information Sepsis secondary to purulent cellulitis right lower extremity Sepsis has resolved Right lower extremity continues to look red hot, warm, Patient has refused MRIs I am very concerned for underlying osteomyelitis, I have ordered CT scan, hopefully patient will agree to undergo imaging Continue vancomycin and Zosyn, to be renally dosed Follow blood cultures so far negative Venous ultrasounds negative for DVT ABIs negative for any significant obstruction Acute heart failure reduced action fraction exacerbation I would use Bumex instead of Lasix, judicious use of fluids EF 40% with aortic and mitral valve regurgitation She follows up with Dr. Lamar Will obtain venous Doppler of right extremity Acute kidney injury This is most likely cardiorenal in nature with active CHF exacerbation Anticipating improvement with diuresis Holding lisinopril Acute hypoxic respiratory failure Currently she is requiring 2 L nasal cannula which is new No active chest pain Concerns of PE. CTA was not feasible on admission. The patient refused VQ scan. Currently there is no evidence of PE. Full dose Lovenox is discontinued. New left bundle branch block without chest pain. We discussed this with Dr. Lamar as well. He does not feel that this is acute coronary syndrome. Troponin elevation is most likely related to sepsis and demand ischemia. Continue conservative management. DVT prophylaxis. Prophylactic Lovenox dose. Anemia. Stable. Continue monitoring. Mild acute kidney injury versus chronic kidney disease. Continue monitoring. Acute on chronic deconditioning and debilitated state. PT OT. Case management will assess discharge needs. The plan of care was discussed with the patient she verbalized understanding and agreement. Attestations Medical Necessity Statement*: Patient requires hospitalization for sepsis secondary to right lower extremity cellulitis, concerning for underlying osteomyelitis Coding Level of Care Code Acute Market Research Senior Project Manager for [facility] Diagnoses Severe sepsis A41.9; R65.20 Acute kidney injury N17.9 Lower extremity edema R60.0 CHF exacerbation I50.9
--- NOTE | 2020-10-03 18:28 | PC.NURSE ---
patient refuses to do CT grant writer explained to patient she just has to have her legs in the CT scan. Patient said no. Dr Ren notified. Dr Ren said he has talked to patient about this as well and to keep trying to get her to do scan.
[2020-10-03] MEDS: atorvastatin 40 mg Tablet 20 MG PO (20:25)
[2020-10-04] VITALS (7 sets, daily range): BP systolic 111–145; BP diastolic 73–84; PULSE 78–89; RESP 17–20; TEMP 36.6–36.9; O2SAT 93–97
[2020-10-04] MEDS: vancomycin 1,250 MG/250 ML PIGGYBACK 250 MG IV (00:27)
[2020-10-04] MEDS: piperacillin-tazobactam 3.375 GM in sodium chloride 0.9% (plus) 50 ML IV ×2 (02:00→10:43)
[2020-10-04 05:30] LABS: Basophils # 0.1 10^3/uL (0.0-0.1); Basophils % 0.8 %; Eosinophils # 0.3 10^3/uL (0.0-0.8); Eosinophils % 4.3 %; Hematocrit 35.7 % (37.0-47.0); Hemoglobin 10.3 g/dL (11.5-15.3); Lymphocytes # 1.5 10^3/uL (0.8-4.8); Mean Corpuscular HGB Conc 28.9 g/dL (30.0-36.0); Mean Corpuscular Hemoglobin 26.3 pg (28.0-34.0); Mean Corpuscular Volume 91.3 fL (81-99); Mean Platelet Volume 10.3 fL (7.4-10.4); Monocytes # 0.7 10^3/uL (0.2-0.9); Monocytes % 9.7 %; Neutrophils # 5.02 10^3/uL (1.8-7.7); Neutrophils % 65.8 %; Nucleated Red Blood Cells % 0 %; Platelet Count 310 10^3/cmm (130-400); Red Blood Count 3.91 10^6/uL (4.1-5.3); Red Cell Distribution Width 12.7 % (12.1-15.1); White Blood Count 7.6 10^3/uL (4.0-10.0)
[2020-10-04 05:48] LABS: Alanine Aminotransferase 32 U/L (0-33); Alkaline Phosphatase 163 IU/L (35-105); Anion Gap 10.6 (5-19); Aspartate Amino Transferase 30 U/L (0-32); Blood Urea Nitrogen 16 mg/dL (8-23); C Reactive Protein 37.8 mg/L (0.0-4.9); Calcium 10.3 mg/dL (8.5-10.5); Carbon Dioxide 33 mmol/L (22-29); Chloride 95 mmol/L (98-107); Globulin 3.4 g/dL (1.3-4.6); Glucose 86 mg/dL (65-115); Magnesium 1.9 mg/dL (1.7-2.3); Osmolality Calculated 278 mOsm/kg (285-295); Phosphorus 2.8 mg/dL (2.5-4.5); Potassium 4.6 mmol/L (3.5-5.1); Sodium 134 mmol/L (136-145); Total Bilirubin 0.4 mg/dL (0.15-1.2); Total Protein 6.4 g/dL (6.6-8.7)
[2020-10-04 06:12] LABS: Procalcitonin 0.78 ng/mL (0-0.5)
[2020-10-04] MEDS: phosphorus 250 mg Tablet PO ×2 (08:30→17:10)
[2020-10-04] MEDS: bumetanide 1 mg Tablet PO (08:30)
[2020-10-04] MEDS: polyethylene glycol 3350 Pkt 17 gm PO (08:30)
[2020-10-04] MEDS: amlodipine 5 mg Tablet PO (08:30)
[2020-10-04] MEDS: guaiFENesin 600 mg Tablet PO ×2 (08:30→17:10)
[2020-10-04] MEDS: aspirin 81 mg EC Tablet PO (08:30)
[2020-10-04] MEDS: enoxaparin 40 mg/0.4 mL Syringe SUBCUT (08:31)
[2020-10-04] MEDS: potassium chloride ER 20 mEq Tablet 40 MEQ PO (08:31)
[2020-10-04] MEDS: vitamin A & D oint 1 APPLIC TOPICAL (08:38)
--- NOTE | 2020-10-04 09:34 | CT_ITS ---
WS: [id number] NONCONTRAST CT RIGHT LEG TECHNIQUE: Noncontrast CT right leg with coronal and sagittal reformatted images. CLINICAL INFORMATION: RLE consnerns for oseomyltis COMPARISON: None. DLP: 1051.[address] scans at [facility] use at least one of these dose optimization techniques: automat ed exposure control; mA and/or kV adjustment per patient size (includes targeted exams where dose is matched to clinical indication); or iterative reconstruction. FINDINGS: Moderate diffuse soft tissue edema right lower extremity. No evidence of drainable abscess or fluid c ollection. Mild skin thickening in the lower leg and ankle. Findings consistent with cellulitis. Advanced degenerative arthritis right knee with subchondral cystic change and hypertrophic changes al amberly the joint line. Loss of the medial and lateral joint spaces worse involving the medial joint spac e with [id number] articulation. Vascular calcification. Plantar calcaneal spurring. Achilles enthes ophyte. CT/CT lower leg RT wo con* [id number] IMPRESSION: 1. Diffuse soft tissue edema right lower extremity with mild skin thickening c onsistent with cellulitis. 2. No evidence of drainable abscess or fluid collection. 3. No evidence of osteomyelitis.
--- NOTE | 2020-10-04 12:15 | PC.SOCIAL ---
*IMM UPDATE* biodiesel product manager gave patient IMM update. Copy of page 2 was provided to patient in room. 10/04/20 @ 12:06pm Initialed, dated, timed and placed in chart.
[2020-10-04] MEDS: HYDROcodone-acetaminophen 5-325 mg Tablet 1 TAB PO (13:45)
--- NOTE | 2020-10-04 14:20 | P.PN_ITS ---
Subjective Subjective: Interval history: Patient was examined this morning, yesterday had a discussion with patient over an hour about my worry of underlying deep tissue infection given the persistent area of erythema warmth and cellulitis, she agreed to perform CT, however she did not want to go through the tube, and she cannot lie flat, advised that we would make arrangements. In the afternoon patient refused CT, again I went up and spoke to patient and advised her that we really needed to perform the study to rule out underlying deep tissue infection osteomyelitis as there is significant morbidity and mortality associated with this diagnosis. She agreed, however the test was not performed overnight. Again had a discussion with patient this morning, she sitting up in chair, the area of erythema now extends posteriorly from the calf, up to the knee joint, still red hot, warm, she has agreed to perform a CT scan. I have discussed with the nurses, the importance of performing imaging, if there is any issues they should notify me. Medications: Reviewed: Yes Medication Review Details: Generic Name Dose Route Start Last Admin Trade Name Freq PRN Reason Stop Dose Admin Aspirin 81 mg 09/29/20 09:00 09/30/20 09:33 Aspirin 81 Mg Ec Tablet PO 81 mg DAILY VANDANA Administration Bumetanide 1 mg 09/29/20 09:00 09/30/20 09:33 Bumetanide 1 Mg Tablet PO 1 mg DAILY VANDANA Administration Enoxaparin Sodium 40 mg 09/30/20 09:00 09/30/20 09:33 Enoxaparin 40 Mg /0.4 Ml Syringe SUBCUT 40 mg Q24H VANDANA Administration Norepinephrine Bit artrate 4 mg 254 mls @ 0 mls/h r 09/28/20 20:45 09/29/20 06:36 / Dextrose IV 0 mcg/min .Q0M VANDANA 0 mls/hr Titration Protocol Per Protocol Piperacillin Sod/T azobactam 50 mls @ 12.5 mls /hr 09/29/20 04:15 09/30/20 13:55 Sod 3.375 gm/ So dium Chloride IV Infused Q8H VANDANA Infusion Vancomycin HCl 750 mg/ Sodium 250 mls @ 250 mls /hr 09/29/20 23:00 09/30/20 00:23 Chloride IV Infused Q24H VANDANA Infusion Potassium Chloride 40 meq 09/29/20 09:00 09/30/20 09:33 Potassium Chlori de Er 20 Meq Table t PO 40 meq DAILY VANDANA Administration Vitamin A/Vitamin D 1 applic 09/29/20 18:00 09/30/20 09:37 Vitamin A & D Oi nt TOPICAL 1 applic BID VANDANA Administration Vitals/I&O/Wt Last Vital Signs Temp 98.5 F 10/04/20 12:00 Pulse 78 10/04/20 12:00 Resp 17 10/04/20 12:00 BP 145/84 10/04/20 12:00 Pulse Ox 93 10/04/20 12:00 10/03/20 10/04/20 10/04/20 22:59 06:59 14:59 Intake Total 360 / 650 350 / 1000 360 / 360 Output Total 500 / 900 300 / 1200 850 / 850 Balance -140 / -250 50 / -200 -490 / -490 Physical Exam Const: COMMON NORMALS: no acute distress and patient oriented x3 HENMT: COMMON NORMALS: normocephalic HEAD & SCALP: normocephalic Neck/C-Spine: COMMON NORMALS: no JVD Resp: COMMON NORMALS: normal respiratory effort, No retractions, No use of accessory muscles and clear to auscultation bilaterally AUSCULTATION: clear to auscultation bilaterally Cardio: COMMON NORMALS: no JVD, regular rate, regular rhythm, S1 normal heart sound present and S2 normal heart sound present RATE: regular rate RHYTHM: regular rhythm HEART SOUNDS: S1 normal heart sound present and S2 normal heart sound present GI: COMMON NORMALS: Normal to inspection, nondistended, normoactive bowel sounds present, Soft to palpation, non-tender, No hepatosplenomegaly present, no masses and no bruits PALPATION: Yes Soft to palpation and Yes No hepatosplenomegaly present Extremity: COMMON NORMALS: capillary refill normal, no clubbing, cyanosis or edema, no calf tenderness and no pedal edema Neuro: COMMON NORMALS: patient oriented x3 Psych: COMMON NORMALS: mental status grossly normal Skin: NARRATIVE SKIN EXAM: Area of erythema, swelling, warmth, extends from the ankle joint, to the mid hughes, and posteriorly from the ankle all the way up to the posterior knee joint Data : 10/04/20 04:38 10/04/20 04:38 Micro: Microbiology 09/29/20 04:23 Blood Culture - Final Blood NO GROWTH AFTER 5 DAYS 09/29/20 04:23 Blood Culture - Final Blood NO GROWTH AFTER 5 DAYS A&P Assessment and plan (1) Severe sepsis: Status: Acute (2) Acute kidney injury: Status: Acute (3) Lower extremity edema: Status: Acute (4) CHF exacerbation: Status: Acute Additional A&P Information Sepsis secondary to purulent cellulitis right lower extremity Sepsis has resolved Right lower extremity continues to look red hot, warm, now extending Patient has refused MRIs I am very concerned for underlying osteomyelitis, I have ordered CT scan, esr is 92, hopefully patient will agree to undergo imaging Continue vancomycin and Zosyn, to be renally dosed Follow blood cultures so far negative Venous ultrasounds negative for DVT ABIs negative for any significant obstruction Acute heart failure reduced action fraction exacerbation Continue Bumex EF 40% with aortic and mitral valve regurgitation She follows up with Dr. Lamar Acute kidney injury, resolved This is most likely cardiorenal in nature with active CHF exacerbation Anticipating improvement with diuresis Holding lisinopril Acute hypoxic respiratory failure Currently she is requiring 2 L nasal cannula which is new No active chest pain Concerns of PE. CTA was not feasible on admission. The patient refused VQ scan . Currently there is no evidence of PE. Full dose Lovenox is discontinued. On prophylactic Lovenox New left bundle branch block without chest pain. We discussed this with Dr. Lamar as well. He does not feel that this is acute coronary syndrome. Troponin elevation is most likely related to sepsis and demand ischemia. Continue conservative management. DVT prophylaxis. Prophylactic Lovenox dose. Anemia. Stable. Continue monitoring. Mild acute kidney injury versus chronic kidney disease. Continue monitoring. Acute on chronic deconditioning and debilitated state. PT OT. Case management will assess discharge needs. Discharge , home with home health care The plan of care was discussed with the patient she verbalized understanding and agreement. Attestations Medical Necessity Statement*: His hospitalization for sepsis secondary to cellulitis right lower extremity, concern for underlying osteomyelitis Coding Level of Care Code Acute Charge Master Specialist for [facility] Diagnoses Severe sepsis A41.9; R65.20 Acute kidney injury N17.9 Lower extremity edema R60.0 CHF exacerbation I50.9
[2020-10-04] MEDS: atorvastatin 40 mg Tablet 20 MG PO (21:07)
--- NOTE | 2020-10-04 22:40 | PC.NURSE ---
Refusal to Ambulate: Pt asked for assistance getting from the recliner to the bed. She stated that 2 staff would need to assist because she was too weak to do it on her own. Pt jose manuel from the recliner and ambulated to the bed with walker and stand by assistance. When asked how she takes care of herself at home and how she gets around the house she said that she uses a walker and then said you all won't let me walk . Asked if Physical Therapy had been working with her and she stated that Physical Therapy had not been working with her until today. Electrologist then offered to walk with the patient in the halls before getting into bed. She refused saying that she was too tired. Educated pt that she needed to be willing to participate in her care so that she would be able to be discharged back home. Pt responded by saying that she wanted to go home.
[2020-10-04 23:26] LABS: Vancomycin Trough 11.1 ug/mL (10-15)
[2020-10-05] MEDS: vancomycin 1,250 MG/250 ML PIGGYBACK 250 MG IV (00:03)
[2020-10-05] MEDS: HYDROcodone-acetaminophen 5-325 mg Tablet 1 TAB PO ×3 (01:39→20:49)
--- NOTE | 2020-10-05 04:20 | PC.NURSE ---
Patient stated that she wanted to walk around. This nurse got the patient up and she ambulated to the door. Her O2 cannula was not able to reach past the door. This nurse got a chair for the patient to sit down by the door. The patient expressed that she still wanted to walk around, by the time this nurse obtained portable O2 and NC, the patient stated that she wanted to go back to her chair.
[2020-10-05 04:28] VITALS: BP 120/76; PULSE 88; RESP 17; TEMP 36.5; O2SAT 94
[2020-10-05 05:47] LABS: Basophils # 0.1 10^3/uL (0.0-0.1); Eosinophils # 0.3 10^3/uL (0.0-0.8); Eosinophils % 4.5 %; Hematocrit 33.8 % (37.0-47.0); Hemoglobin 9.8 g/dL (11.5-15.3); Lymphocytes # 1.4 10^3/uL (0.8-4.8); Lymphocytes % 19.9 %; Mean Corpuscular Hemoglobin 26.2 pg (28.0-34.0); Mean Corpuscular Volume 90.4 fL (81-99); Mean Platelet Volume 9.6 fL (7.4-10.4); Monocytes # 0.7 10^3/uL (0.2-0.9); Monocytes % 9.7 %; Neutrophils % 63.9 %; Nucleated Red Blood Cells % 0 %; Platelet Count 303 10^3/cmm (130-400); Red Blood Count 3.74 10^6/uL (4.1-5.3)
[2020-10-05 06:10] LABS: Alanine Aminotransferase 41 U/L (0-33); Albumin Level 2.9 g/dL (3.5-5.2); Alkaline Phosphatase 159 IU/L (35-105); Anion Gap 8.4 (5-19); Aspartate Amino Transferase 33 U/L (0-32); Blood Urea Nitrogen 16 mg/dL (8-23); C Reactive Protein 32.2 mg/L (0.0-4.9); Calcium 10.1 mg/dL (8.5-10.5); Carbon Dioxide 34 mmol/L (22-29); Chloride 97 mmol/L (98-107); Globulin 3.3 g/dL (1.3-4.6); Glucose 96 mg/dL (65-115); Magnesium 1.9 mg/dL (1.7-2.3); Osmolality Calculated 281 mOsm/kg (285-295); Phosphorus 2.7 mg/dL (2.5-4.5); Potassium 4.4 mmol/L (3.5-5.1); Sodium 135 mmol/L (136-145); Total Bilirubin 0.3 mg/dL (0.15-1.2); Total Protein 6.2 g/dL (6.6-8.7)
[2020-10-05 06:27] LABS: Procalcitonin 0.48 ng/mL (0-0.5)
[2020-10-05 06:58] LABS: Erythrocyte Sedimentation Rate 81 mm/hr (0-15)
[2020-10-05 07:13] VITALS: BP 144/77; PULSE 95; RESP 17; TEMP 36.5; O2SAT 93
[2020-10-05] MEDS: guaiFENesin 600 mg Tablet PO ×2 (09:24→17:18)
[2020-10-05] MEDS: bumetanide 1 mg Tablet PO ×2 (09:24→17:18)
[2020-10-05] MEDS: phosphorus 250 mg Tablet PO ×2 (09:24→17:18)
[2020-10-05] MEDS: aspirin 81 mg EC Tablet PO (09:24)
[2020-10-05] MEDS: polyethylene glycol 3350 Pkt 17 gm PO (09:25)
[2020-10-05] MEDS: potassium chloride ER 20 mEq Tablet 40 MEQ PO (09:25)
[2020-10-05] MEDS: amlodipine 5 mg Tablet PO (09:25)
[2020-10-05] MEDS: enoxaparin 40 mg/0.4 mL Syringe SUBCUT (09:25)
[2020-10-05 11:14] VITALS: BP 128/73; PULSE 85; RESP 16; TEMP 36.7; O2SAT 94
--- NOTE | 2020-10-05 11:38 | PM.PN ---
Subjective Subjective: Interval history: Patient was examined, this morning, she is working with physical therapy, sitting in a chair, she is able to ambulate, her cellulitis has improved to some degree, she is a bit frustrated about how long it is taking, no fevers overnight, no chills, no shortness of breath Medications: Reviewed: Yes Medication Review Details: Generic Name Dose Route Start Last Admin Trade Name Mehnaz PRN Reason Stop Dose Admin Aspirin 81 mg 09/29/20 09:00 09/30/20 09:33 Aspirin 81 Mg Ec Tablet PO 81 mg DAILY VANDANA Administration Bumetanide 1 mg 09/29/20 09:00 09/30/20 09:33 Bumetanide 1 Mg Tablet PO 1 mg DAILY VANDANA Administration Enoxaparin Sodium 40 mg 09/30/20 09:00 09/30/20 09:33 Enoxaparin 40 Mg /0.4 Ml Syringe SUBCUT 40 mg Q24H VANDANA Administration Norepinephrine Bit artrate 4 mg 254 mls @ 0 mls/h r 09/28/20 20:45 09/29/20 06:36 / Dextrose IV 0 mcg/min .Q0M VANDANA 0 mls/hr Titration Protocol Per Protocol Piperacillin Sod/T azobactam 50 mls @ 12.5 mls /hr 09/29/20 04:15 09/30/20 13:55 Sod 3.375 gm/ So dium Chloride IV Infused Q8H VANDANA Infusion Vancomycin HCl 750 mg/ Sodium 250 mls @ 250 mls /hr 09/29/20 23:00 09/30/20 00:23 Chloride IV Infused Q24H VANDANA Infusion Potassium Chloride 40 meq 09/29/20 09:00 09/30/20 09:33 Potassium Chlori de Er 20 Meq Table t PO 40 meq DAILY VANDANA Administration Vitamin A/Vitamin D 1 applic 09/29/20 18:00 09/30/20 09:37 Vitamin A & D Oi nt TOPICAL 1 applic BID VANDANA Administration Vitals/I&O/Wt Last Vital Signs Temp 98.1 F 10/05/20 11:14 Pulse 85 10/05/20 11:14 Resp 16 10/05/20 11:14 BP 128/73 10/05/20 11:14 Pulse Ox 94 10/05/20 11:14 10/04/20 10/05/20 10/05/20 22:59 06:59 14:59 Intake Total 440 / 1330 350 / 1680 220 / 220 Output Total 750 / 1600 1650 / 3250 650 / 650 Balance -310 / -270 -1300 / -1570 -430 / -430 Weight last 48 hrs Weight 121.155 kg Physical Exam Const: COMMON NORMALS: no acute distress and patient oriented x3 HENMT: COMMON NORMALS: normocephalic HEAD & SCALP: normocephalic Neck/C-Spine: COMMON NORMALS: no JVD Resp: COMMON NORMALS: normal respiratory effort, No retractions, No use of accessory muscles and clear to auscultation bilaterally AUSCULTATION: clear to auscultation bilaterally Cardio: COMMON NORMALS: no JVD, regular rate, regular rhythm, S1 normal heart sound present and S2 normal heart sound present RATE: regular rate RHYTHM: regular rhythm HEART SOUNDS: S1 normal heart sound present and S2 normal heart sound present GI: COMMON NORMALS: Normal to inspection, nondistended, normoactive bowel sounds present, Soft to palpation, non-tender, No hepatosplenomegaly present, no masses and no bruits PALPATION: Yes Soft to palpation and Yes No hepatosplenomegaly present Extremity: COMMON NORMALS: capillary refill normal, no clubbing, cyanosis or edema, no calf tenderness and no pedal edema NARRATIVE EXTREMITY EXAM: Right lower extremity, hughes level, 3 x 4 cm area that is red, hot, warm, erythematous Neuro: COMMON NORMALS: patient oriented x3 Psych: COMMON NORMALS: mental status grossly normal Skin: NARRATIVE SKIN EXAM: Area of erythema, swelling, warmth, extends from the ankle joint, to the mid hughes, and posteriorly from the ankle all the way up to the posterior knee joint Data : 10/05/20 05:33 10/05/20 05:33 Micro: Microbiology 09/29/20 04:23 Blood Culture - Final Blood NO GROWTH AFTER 5 DAYS 09/29/20 04:23 Blood Culture - Final Blood NO GROWTH AFTER 5 DAYS A&P Assessment and plan (1) Severe sepsis: Status: Acute (2) Acute kidney injury: Status: Acute (3) Lower extremity edema: Status: Acute (4) CHF exacerbation: Status: Acute Additional A&P Information Sepsis secondary to purulent cellulitis right lower extremity Sepsis has resolved Right lower extremity continues to look red hot, warm, now extending to posterior aspect of the knee CT scan negative for underlying osteomyelitis or abscess, ESR in the 80s Unfortunately patient's weight was not recorded as inaccurate as 124 pounds, thus she was receiving a suboptimal dose of vancomycin, and her vancomycin troughs were subtherapeutic, her weight is 267 pounds, I have spoken to the pharmacy, they will adjust vancomycin dosing, adjust vancomycin troughs, trough should be greater than 15 I am hoping with correct vancomycin dosing, in the next 24 to 48 hours, her cellulitis should significantly improve Continue vancomycin and Primaxin, to be renally dosed Follow blood cultures so far negative Venous ultrasounds negative for DVT ABIs negative for any significant obstruction Acute heart failure reduced action fraction exacerbation A bit fluid overloaded today, increase Bumex 1 mg twice daily EF 40% with aortic and mitral valve regurgitation She follows up with Dr. Lamar Acute kidney injury, resolved This is most likely cardiorenal in nature with active CHF exacerbation Anticipating improvement with diuresis Holding lisinopril Acute hypoxic respiratory failure Currently she is requiring 2 L nasal cannula which is new No active chest pain Concerns of PE. CTA was not feasible on admission. The patient refused VQ scan. Currently there is no evidence of PE. Full dose Lovenox is discontinued. On prophylactic Lovenox New left bundle branch block without chest pain. We discussed this with Dr. Lamar as well. He does not feel that this is acute coronary syndrome. Troponin elevation is most likely related to sepsis and demand ischemia. Continue conservative management. DVT prophylaxis. Prophylactic Lovenox dose. Anemia. Stable. Continue monitoring. Mild acute kidney injury versus chronic kidney disease. Continue monitoring. Acute on chronic deconditioning and debilitated state. PT OT. Case management will assess discharge needs. Discharge , home with home health care The plan of care was discussed with the patient she verbalized understanding and agreement. 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
[2020-10-05 13:39] VITALS: PULSE 90; O2SAT 93
[2020-10-05 15:12] VITALS: BP 146/85; PULSE 92; RESP 18; TEMP 36.5; O2SAT 95
--- NOTE | 2020-10-05 16:10 | PM.CONSULT ---
Providers/Reason For Consult Consulting Physican/Specialty*: Ravi Palumbo D.P.M. Reason for Consult*: Right lower extremity cellulitis Attending Physician: Charlie Ren MD Primary Care Provider: RENALDO Owen History of Present Illness History of Present Illness Yamileth Edge is a 75 year old female admitted to the hospital service for sepsis, has lower extremity peripheral vascular disease, cellulitis to the right lower extremity. Past medical history of diabetes and congestive heart failure. She states that her family members made her go to the emergency department as they were concerned with the swelling and her visible discomfort. She is sitting bedside in a chair with her feet elevated at this time. Lymphedema wraps are intact without strikethrough drainage. Patient denies any subjective nausea, vomiting, fever, chills, shortness of breath or chest pain. Review of Systems General: Reports: 10 or more systems reviewed and unremarkable except in HPI and below Const: Denies: fever(s) or chills Card: Denies: chest pain or palpitations Resp: Denies: productive cough GI: Denies: abdominal pain, nausea or vomiting : Denies: flank pain Musc: Reports: extremity swelling, joint pain, joint stiffness, limited range of motion and deformity Skin/Breast: Reports: erythema, skin tenderness, skin swelling, sores, nail changes and change in hair; Denies: rash Neuro: Reports: numbness in extremities, sensory changes and difficulty walking Psych: Denies: suicidal ideation Jt/Lymph: Denies: easy bruising Meds/Allergies Home Medications and Allergies Home Medications Medication Instructions Recorded Confirmed Last Taken Type aspirin 81 mg tablet,delayed 81 mg PO DAILY #90 tab 03/13/20 09/29/20 Unknown Rx release furosemide 40 mg tablet 80 mg PO DAILY #180 tab 03/13/20 09/29/20 Unknown Rx lisinopril 20 mg tablet 20 mg PO DAILY #90 tab 03/13/20 09/29/20 Unknown Rx amlodipine 5 mg tablet 5 mg PO DAILY #90 tab 03/20/20 09/29/20 Unknown Rx metoprolol tartrate 25 mg tablet 25 mg PO BID #180 tab 06/21/20 09/29/20 Unknown Rx acetaminophen [Tylenol Arthritis 1,300 mg PO Q8H 09/29/20 09/29/20 Unknown History Pain] acetaminophen [Tylenol Extra 1,000 mg PO Q6H PRN 09/29/20 09/29/20 Unknown History Strength] ascorbic acid (vitamin C) [Vitamin 500 mg PO DAILY 09/29/20 09/29/20 Unknown History C] guaifenesin [Mucinex] 600 mg PO PRN 09/29/20 09/29/20 Unknown History lovastatin 80 mg PO BEDTIME 09/29/20 09/29/20 Unknown History multivitamin 1 tab PO DAILY 09/29/20 09/29/20 Unknown History potassium chloride See Rx Instructions .ROUTE .COMPLEX 09/29/20 09/29/20 Unknown History tizanidine 2 mg PO Q8H PRN 09/29/20 09/29/20 Unknown History Allergies Allergy/AdvReac Type Severity Reaction Status Date / Time diclofenac Allergy Intermediate sick Verified 02/25/20 10:36 Current Medications Current Medications Generic Name Dose Route Start Last Admin Trade Name Freq PRN Reason Stop Dose Admin Hydrocodone Bitart/Acetaminophen 1 tab 10/03/20 12:22 10/05/20 10:34 Hydrocodone-Acetaminophen 5-325 Mg Tablet PO 1 tab Q12H PRN Administration MODERATE PAIN Alprazolam 0.125 mg 09/29/20 16:25 10/01/20 23:07 Alprazolam 0.25 Mg Tablet PO 0.125 mg Q12H PRN Administration ANXIETY Amlodipine Besylate 5 mg 10/02/20 12:55 10/05/20 09:25 Amlodipine 5 Mg Tablet PO 5 mg DAILY VANDANA Administration Aspirin 81 mg 09/29/20 09:00 10/05/20 09:24 Aspirin 81 Mg Ec Tablet PO 81 mg DAILY VANDANA Administration Atorvastatin Calcium 20 mg 10/02/20 21:00 10/04/20 21:07 Atorvastatin 40 Mg Tablet PO 20 mg BEDTIME VANDANA Administration Enoxaparin Sodium 40 mg 09/30/20 09:00 10/05/20 09:25 Enoxaparin 40 Mg/0.4 Ml Syringe SUBCUT 40 mg Q24H VANDANA Administration Guaifenesin 600 mg 10/01/20 18:00 10/05/20 09:24 Guaifenesin 600 Mg Tablet PO 600 mg BID VANDANA Administration Imipenem/Cilastatin Sodium 250 100 mls @ 200 mls/hr 10/04/20 15:00 10/05/20 15:44 mg/ Sodium Chloride IV 200 mls/hr Q6H VANDANA Administration Protocol Polyethylene Glycol 17 gm 10/02/20 12:00 10/05/20 09:25 Polyethylene Glycol 3350 Pkt 17 Gm PO 17 gm DAILY VANDANA Administration Potassium Chloride 40 meq 09/29/20 09:00 10/05/20 09:25 Potassium Chloride Er 20 Meq Tablet PO 40 meq DAILY VNADANA Administration Potassium Phosphate 250 mg 10/02/20 09:00 10/05/20 09:24 Phosphorus 250 Mg Tablet PO 250 mg BID VANDANA Administration Vitamin A/Vitamin D 1 applic 09/29/20 18:00 10/05/20 09:27 Vitamin A & D Oint TOPICAL Not Given BID VANDANA PFSH Acute PFSH: Medical History Anemia Aortic root dilatation Cellulitis Congestive heart failure Essential hypertension Fatigue Left ventricular dysfunction Left ventricular hypertrophy Medication management Mild aortic insufficiency Mitral insufficiency Mixed hyperlipidemia Pulmonary hypertension Surgical History History of cataract extraction History of shoulder surgery Social History Smoking and tobacco status: never smoked Second hand smoke exposure: No Alcohol intake: never Desire information about alcohol rehabilitation?: No Counseling given: No Desire information about substance/drug rehabilitation?: No Counseling given: No Vitals/I&O/Wt Last Vital Signs Temp 97.7 F 10/05/20 15:12 Pulse 92 10/05/20 15:12 Resp 18 10/05/20 15:12 BP 146/85 10/05/20 15:12 Pulse Ox 95 10/05/20 15:12 10/05/20 10/05/20 10/05/20 06:59 14:59 22:59 Intake Total 350 / 1680 220 / 220 Output Total 1650 / 3250 650 / 650 300 / 950 Balance -1300 / -1570 -430 / -430 -300 / -730 Weight last 48 hrs Weight 267 lb 1.6 oz Physical Exam Narrative: EXAM NARRATIVE: GENERAL: Patient is alert and oriented ?3 and in no acute distress. The following is a focused bilateral lower extremity exam. VASCULAR: Dorsalis pedis palpable posterior tibial arteries palpable. Capillary refill time less than 3 seconds to the distal hallux bilaterally. Calf is supple and nontender proximally and distally. Pitting edema to lower extremities, positive stemmer sign bilaterally. Diminished pedal hair growth. Skin temperature is warm to warm from the anterior tibial tuberosity to the dorsal distal digits. NEUROLOGICAL: Protective sensation intact 3/10 sites, tested with [place] monofilament to bilateral feet. DERMATOLOGICAL:Cellulitis to the right lower extremity localized to the leg, no proximal lymphangitic streaking proximal to the knee. Serous fluid/drainage at the right leg, venous ulcerations to the right lower leg limited to breakdown of skin with mild maceration. Dystrophic toenails x10. No full-thickness wounds appreciated. MUSCULOSKELETAL: Pes planus foot type bilateral. Muscle strength 5 out of 5 in all 3 cardinal planes to the bilateral foot and ankle. Tenderness to palpation at the wounds of the left leg. 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 Edge is a 75-year-old female with peripheral vascular disease and cellulitis to the right lower extremity. Prakash grade 1 wound to the right lower leg limited to breakdown of skin. ESR 81. A1c 6.5. D-dimer 4.04 September 28, CRP 32. CT scan significant for cellulitis of the leg, no abscess or osseous destruction suggestive of osteomyelitis. X-ray of right foot negative for acute fracture or signs of osteomyelitis. I do not appreciate Charcot arthropathy on either CT scan or x-ray or clinically. Ankle-brachial index within normal limits. Patient likely has a mixed etiology of PVD including lymphedema and venous insufficiency. At this time patient is afebrile, no leukocytosis, inflammatory markers are trending downward. Have a low suspicion for osteomyelitis clinically and radiographically. Physical therapy has been performing lymphedema wraps. I removed lymphedema wraps to the left and right leg for evaluation. Following evaluation I rewrapped with [employer] directly to right lower leg followed by kevin Menard, cast padding and short stretch lymphedema wraps in a basket weave fashion. I would recommend a home health consultation on discharge, would see if they can educate family members and patient on applying for lymphedema wraps so that this treatment can continue after discharge. Would like to have patient follow-up in podiatry clinic after discharge. Plan would be to encourage gradient compression stockings on a daily basis once right lower extremity cellulitis and wounds are resolved. Will continue with lymphedema wraps until that time. Also educated patient on lifestyle modifications of elevating her feet while at rest and avoid long peers of time with her feet in a gravity dependent position. 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
[2020-10-05 20:00] VITALS: BP 144/61; PULSE 89; RESP 22; TEMP 36.9; O2SAT 97
[2020-10-05] MEDS: atorvastatin 40 mg Tablet 20 MG PO (20:41)
[2020-10-05] MEDS: vancomycin 1,500 MG/300 ML PIGGYBACK 200 MG IV (23:44)
[2020-10-06] VITALS (8 sets, daily range): BP systolic 122–142; BP diastolic 73–84; PULSE 79–117; RESP 18–20; TEMP 36.7–37.1; O2SAT 84–96
[2020-10-06 02:59] LABS: Basophils # 0.1 10^3/uL (0.0-0.1); Basophils % 0.8 %; Eosinophils # 0.3 10^3/uL (0.0-0.8); Eosinophils % 3.9 %; Hematocrit 35.2 % (37.0-47.0); Lymphocytes # 1.6 10^3/uL (0.8-4.8); Lymphocytes % 18.9 %; Mean Corpuscular HGB Conc 28.4 g/dL (30.0-36.0); Mean Corpuscular Hemoglobin 26.5 pg (28.0-34.0); Mean Corpuscular Volume 93.1 fL (81-99); Mean Platelet Volume 9.9 fL (7.4-10.4); Monocytes # 0.7 10^3/uL (0.2-0.9); Monocytes % 8.7 %; Neutrophils # 5.67 10^3/uL (1.8-7.7); Neutrophils % 66.8 %; Nucleated Red Blood Cells % 0 %; Platelet Count 330 10^3/cmm (130-400); Red Blood Count 3.78 10^6/uL (4.1-5.3); Red Cell Distribution Width 13.2 % (12.1-15.1); White Blood Count 8.5 10^3/uL (4.0-10.0)
[2020-10-06 03:27] LABS: Alanine Aminotransferase 53 U/L (0-33); Albumin Level 2.9 g/dL (3.5-5.2); Alkaline Phosphatase 162 IU/L (35-105); Anion Gap 12.5 (5-19); Aspartate Amino Transferase 44 U/L (0-32); Blood Urea Nitrogen 19 mg/dL (8-23); C Reactive Protein 30.3 mg/L (0.0-4.9); Calcium 10.3 mg/dL (8.5-10.5); Carbon Dioxide 32 mmol/L (22-29); Chloride 99 mmol/L (98-107); Globulin 3.6 g/dL (1.3-4.6); Glucose 95 mg/dL (65-115); Magnesium 1.9 mg/dL (1.7-2.3); Osmolality Calculated 290 mOsm/kg (285-295); Phosphorus 3.2 mg/dL (2.5-4.5); Potassium 4.5 mmol/L (3.5-5.1); Sodium 139 mmol/L (136-145); Total Bilirubin 0.3 mg/dL (0.15-1.2); Total Protein 6.5 g/dL (6.6-8.7)
[2020-10-06] MEDS: bumetanide 1 mg Tablet PO ×2 (06:31→17:33)
[2020-10-06] MEDS: aspirin 81 mg EC Tablet PO (08:45)
[2020-10-06] MEDS: potassium chloride ER 20 mEq Tablet 40 MEQ PO (08:45)
[2020-10-06] MEDS: guaiFENesin 600 mg Tablet PO ×2 (08:45→17:33)
[2020-10-06] MEDS: enoxaparin 40 mg/0.4 mL Syringe SUBCUT (08:45)
[2020-10-06] MEDS: phosphorus 250 mg Tablet PO ×2 (08:45→17:33)
[2020-10-06] MEDS: amlodipine 5 mg Tablet PO (08:45)
[2020-10-06] MEDS: vitamin A & D oint 1 APPLIC TOPICAL ×2 (09:05→17:34)
--- NOTE | 2020-10-06 10:47 | PC.OT ---
OT TREATMENT ATTEMPTED TWICE THIS A.M. PATIENT IS SLEEPING SOUNDLY BOTH TIMES. WILL ATTEMPT AGAIN LATER.
--- NOTE | 2020-10-06 10:53 | PM.DCS ---
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: Status: Acute (2) Cellulitis: Status: Acute Qualifiers: Laterality: right Site of cellulitis: extremity Site of cellulitis of extremity: lower extremity Qualified Code(s): L03.115 - Cellulitis of right lower limb (3) Lower extremity edema: Status: Acute (4) PVD (peripheral vascular disease): Status: Acute Reason for Visit Reason for Visit: FALL/ WEAKNESS/ TEMP Hospital Course Hospital Course This is a 75-year-old female with a past medical history of diastolic heart failure, lower extremity edema, aortic regurg, pulmonary pretension, noninsulin-dependent type 2 diabetes mellitus who presented to [facility] due to right lower extremity pain Patient was admitted to [facility] for right lower extremity pain secondary to purulent cellulitis with sepsis, admitted to the ICU, started on broad-spectrum antibiotic therapy, and clinically monitored. Patient's clinical status improved, sepsis resolved. Patient was moved out of the ICU, monitored on the general medical floors. Patient's area of cellulitis persisted while on the general medical floors, her infectious markers had resolved, remained afebrile, patient eventually agreed to CT imaging of the right lower extremity which she declined multiple times on admission and through her hospitalization, which was negative for osteomyelitis or abscess. Eventually, it was discovered that patient's weight was inaccurately recorded on admission as 124 pounds, she was actually 267 pounds, thus the dosing of vancomycin was suboptimal, she then received adequate dosing of vancomycin and clinically monitored. Although her vancomycin trough remains suboptimal, her right lower extremity cellulitis has significantly improved. She remains afebrile, all infectious markers have improved. Right lower extremity ultrasound was negative for DVT. ABIs within normal limits. I believe that likely patient has a component of right lower extremity cellulitis and lymphedema. In addition I had also consulted podiatry who helped with management. I have discharged the patient on 7 remaining days of Augmentin and doxycycline, lymphedema wraps, and to follow-up with me in clinic on Friday or Friday for cellulitis and lymphedema check. Patient was advised if she were to have fevers, worsening cellulitis, lightheadedness or dizziness go to emergency room. Patient also had a CHF exacerbation, likely secondary to diastolic CHF during her hospital admission, requiring inpatient diuresis, clinically improved, diuresed over 4.7 L during her hospital mission. I have discharged her on Lasix 40 twice daily, with potassium replacement. Physical Exam Const: COMMON NORMALS: no acute distress and patient oriented x3 HENMT: COMMON NORMALS: normocephalic HEAD & SCALP: normocephalic Neck/C-Spine: COMMON NORMALS: no JVD Resp: COMMON NORMALS: normal respiratory effort, No retractions, No use of accessory muscles and clear to auscultation bilaterally AUSCULTATION: clear to auscultation bilaterally Cardio: COMMON NORMALS: no JVD, regular rate, regular rhythm, S1 normal heart sound present and S2 normal heart sound present RATE: regular rate RHYTHM: regular rhythm HEART SOUNDS: S1 normal heart sound present and S2 normal heart sound present GI: COMMON NORMALS: Normal to inspection, nondistended, normoactive bowel sounds present, Soft to palpation, non-tender, No hepatosplenomegaly present, no masses and no bruits PALPATION: Yes Soft to palpation and Yes No hepatosplenomegaly present Extremity: COMMON NORMALS: capillary refill normal, no clubbing, cyanosis or edema, no calf tenderness and no pedal edema Neuro: COMMON NORMALS: patient oriented x3 Psych: COMMON NORMALS: mental status grossly normal Skin: NARRATIVE SKIN EXAM: Area of erythema, warmth, tenderness has significantly receded, Discharge Data Data Completed and Pending: Completed Studies During Hospitalization Category Date Time Status CT lower leg RT w o con* [id number] Stat Cat Scan 10/04/20 09:34 Completed XR chest 1V willam ble [id number] Urgent Exams 09/28/20 19:01 Completed XR foot RT 2V 736 20 Routine Exams 09/29/20 16:22 Completed XR tibia fibula R T 2V [id number] Routine Exams 09/29/20 16:17 Completed CV ankle brachial index [id number] Routi ne Ultrasound 09/28/20 Completed CV echo complete* [id number] Routine Ultrasound 10/01/20 14:19 [place] [id number] Stat Ultrasound 09/28/20 19:39 Completed US soft tissue/ex tremity [id number] Rout ine Ultrasound 09/30/20 13:09 Completed Pending at discharge Category Date Time Status C Reactive Protei n AM LABS Lab 10/07/20 04:00 Ordered C Reactive Protei n AM LABS Lab 10/08/20 04:00 Ordered Complete Blood Co unt w/Auto AM LABS Lab 10/07/20 04:00 Ordered Complete Blood Co unt w/Auto AM LABS Lab 10/08/20 04:00 Ordered Comprehensive Met abolic Panel AM LA BS Lab 10/07/20 04:00 Ordered Comprehensive Met abolic Panel AM LA BS Lab 10/08/20 04:[address] at Lab 10/06/20 10:48 Ordered Magnesium AM LABS Lab 10/07/20 04:00 Ordered Magnesium AM LABS Lab 10/08/20 04:00 Ordered Phosphorus AM LAB S Lab 10/07/20 04:00 Ordered Phosphorus AM LAB S Lab 10/08/20 04:00 Ordered Vancomycin Trough Timed Lab 10/07/20 22:00 Ordered Labs from last 24 hours 10/06/20 10/06/20 02:22 02:22 WBC 8.5 RBC 3.78 L Hgb 10.0 L Hct 35.2 L MCV 93.1 MCH 26.5 L MCHC 28.4 L RDW 13.2 Plt Count 330 MPV 9.9 Neut % (Auto) 66.8 Lymph % (Auto) 18.9 Carlton % (Auto) 8.7 Eos % (Auto) 3.9 Baso % (Auto) 0.8 Neut # (Auto) 5.67 Lymph # (Auto) 1.6 Carlton # (Auto) 0.7 Eos # (Auto) 0.3 Baso # (Auto) 0.1 Nucleated RBC % (a uto) 0 Nucleated RBCs # 0.0 Sodium 139 Potassium 4.5 Chloride 99 Carbon Dioxide 32 H Anion Gap 12.5 BUN 19 Creatinine 0.7 GFR Calculation Not Reportable Glucose 95 Calculated Osmolal ity 290 Calcium 10.3 Phosphorus 3.2 Magnesium 1.9 Total Bilirubin 0.3 AST 44 H ALT 53 H Alkaline Phosphata se 162 H C-Reactive Protein 30.3 H Total Protein 6.5 L Albumin 2.9 L Globulin 3.6 Vitals: Last Vital Signs Temp 98.5 F 10/06/20 08:00 Pulse 117 H 10/06/20 08:00 Resp 19 H 10/06/20 08:00 BP 123/74 10/06/20 08:00 Pulse Ox 95 10/06/20 08:00 Discharge Plan Discharge Patient Disposition: Home Condition: Stable Prescriptions: New doxycycline monohydrate 100 mg capsule 100 mg PO BID 7 Days Qty: 14 RF: 0 vits A and D-white pet-lanolin Ointment 1 applic topical BID 30 Days Qty: 113 RF: 0 amoxicillin-pot clavulanate [Augmentin] 875-125 mg tablet 1 tab PO BID 7 Days Qty: 14 RF: 0 Continued lisinopril 20 mg tablet 20 mg PO DAILY Qty: 90 RF: 3 aspirin 81 mg tablet,delayed release (DR/EC) 81 mg PO DAILY Qty: 90 RF: 3 amlodipine 5 mg tablet 5 mg PO DAILY Qty: 90 RF: 3 metoprolol tartrate 25 mg tablet 25 mg PO BID Qty: 180 RF: 3 multivitamin Tablet 1 tab PO DAILY RF: 0 tizanidine 2 mg tablet 2 mg PO Q8H PRN (Reason: unknown) RF: 0 lovastatin 40 mg tablet 80 mg PO BEDTIME RF: 0 Tylenol Extra Strength 500 mg Tablet 1,000 mg PO Q6H PRN (Reason: Pain) RF: 0 Tylenol Arthritis Pain 650 mg Tablet Extended Release 1,300 mg PO Q8H RF: 0 Vitamin C 500 mg Tablet 500 mg PO DAILY RF: 0 Mucinex 600 mg Tablet Extended Release 12hr 600 mg PO PRN RF: 0 Changed furosemide 40 mg tablet 40 mg PO Q12H 30 Days Qty: 60 RF: 0 potassium chloride 20 mEq tablet,ER particles/crystals 40 meq PO DAILY 30 Days Qty: 60 RF: 0 Discharge Orders: Discharge Order (Routine); Ordered 10/06/20 Ordered By: Charlie Ren Referrals: [facility] [Outside] (Please call [facility] if contact has not been made within 24-48 hours of return home. ) Charlie Ren MD [Hospitalist] - 1-3 days (follow up with me on in [place] on friday or friday) Discharge Diet: Cardiac Discharge Activity: Resume usual activity Activity Restrictions/Additional Instructions: -Please take antibiotics as prescribed -Please continue lymphedema wraps as prescribed -Please monitor for worsening area of cellulitis,, worsening pain if so come to the emergency room -Take Lasix as prescribed -Follow-up with me in clinic on Friday or Friday Discharge Attestations Time Spent in Discharge Care*: greater than 30 min Quality Metrics Clinical Quality Measures During this hospital stay, did patient experience: None Coding Level of Care Code Acute Machine Programmer for Brayden Fwd Diagnoses 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
--- NOTE | 2020-10-06 11:46 | PC.NURSE ---
Discharge instructions reviewed, verbalized understanding, denies further questions or concerns, belongings returned to patient.
[2020-10-06 12:00] LABS: Estmated Average Glucose 120; Hemoglobin A1C 5.8 % (4.0-6.0)
[2020-10-06] MEDS: HYDROcodone-acetaminophen 5-325 mg Tablet 1 TAB PO (14:51)
--- NOTE | 2020-10-06 14:54 | PC.SOCIAL ---
IMM Update Pg. 2 of IMM updated and reviewed with patient. Signed, dated, and timed, copy provided.
--- NOTE | 2020-10-06 16:15 | PC.OT ---
OT tx attempted. Pt is scheduled for discharge but is still here awaiting O2 delivery. Therapist offering pt OT services but she declines stating I've been waiting since 1000 this morning . Everyone keeps lying to me and I just want to go home! Pt is crying and her daughter is on the phone calling for assistance.Therapist providing pt with warm washcloth to wash her face. Nursing reports O2 is in transit and pt should be discharged soon.
== END 2020-10-06 18:16 | disposition home or self-care (01) | DRG 871 ==
LOC: ER 19:15 → ICU 09-29 00:42 → CSU 09-29 00:55 → ICU 09-29 00:58 → MEDSURG 10-02 14:26
PROVIDERS: Internal Medicine; Admitting Provider Internal Medicine; Emergency Provider Family Medicine; PCP Nurse Practitioner Family; Visit Provider Family Medicine
DX: A41.9 Sepsis, unspecified organism (principal); I50.33 Acute on chronic diastolic (congestive) heart failure; J96.01 Acute respiratory failure with hypoxia; I13.0 Hypertensive heart and chronic kidney disease with heart failure and stage 1 through stage 4 chronic kidney disease, or unspecified chronic kidney disease; L03.115 Cellulitis of right lower limb; N17.9 Acute kidney failure, unspecified; I24.8 Other forms of acute ischemic heart disease; R65.20 Severe sepsis without septic shock; N18.9 Chronic kidney disease, unspecified; E11.22 Type 2 diabetes mellitus with diabetic chronic kidney disease; I08.0 Rheumatic disorders of both mitral and aortic valves; I27.20 Pulmonary hypertension, unspecified; W19.XXXA Unspecified fall, initial encounter; I95.9 Hypotension, unspecified; D64.9 Anemia, unspecified; E78.2 Mixed hyperlipidemia; I44.7 Left bundle-branch block, unspecified; E11.51 Type 2 diabetes mellitus with diabetic peripheral angiopathy without gangrene; E11.40 Type 2 diabetes mellitus with diabetic neuropathy, unspecified; Z79.82 Long term (current) use of aspirin
CPT/HCPCS: 36415; 71045; 73590; 73620; 73700; 76882; 80048; 80053; 80069; 80202; 81001; 83036; 83605; 83735; 83880; 84100; 84145; 84484; 85025; 85378; 85651; 86140; 87040; 87641; 93005; 93306; 93922; 93971; 96365; 96366; 96367; 96372; 97110; 97116; 97124; 97140; 97163; 97166; 97530; 97535; 99285; A9281; J0743; J1650; J2270; J2543; J3370; J7030; J7050

== ENCOUNTER → 2022-05-06 10:04 | Outpatient (BNVA) | payer MEDICARE, MEDICAID, SELFPAY | PROVIDERS: PCP Family Medicine; Visit Provider Internal Medicine Cardiovascular Disease | DX: I11.0 Hypertensive heart disease with heart failure (principal); I50.9 Heart failure, unspecified; I73.9 Peripheral vascular disease, unspecified; I34.0 Nonrheumatic mitral (valve) insufficiency; E11.40 Type 2 diabetes mellitus with diabetic neuropathy, unspecified; Z79.84 Long term (current) use of oral hypoglycemic drugs | CPT/HCPCS: 99214 ==

== ENCOUNTER 2022-07-08 07:58 | Outpatient (CLI) | payer MEDICARE, MEDICAID, SELFPAY ==
--- NOTE | 2022-07-08 09:15 | USCV_ITS ---
Yamileth Edge Age: 77 Gender: F : 1945 Exam Date: 07/08/2022 08:31 Ordering Phys: Elli Siddiqui MD ([email or web address]) Technologist: Exam Location: [facility] [place] Indication: Aortic stenosis BP: 148 / 88 HR: 80 Rhythm: Sinus Technical Quality: Adequate MEASUREMENTS (Male / Female) Normal Values 2D ECHO LV Diastolic Diameter PLAX 5.3 cm 4.2 - 5.9 / 3.9 - 5.3 cm LV Systolic Diameter PLAX 4.3 cm IVS Diastolic Thickness 1.3 cm 0.6 - 1.0 / 0.6 - 0.9 cm IVS Systolic Thickness 1.8 cm LVPW Diastolic Thickness 1.2 cm 0.6 - 1.0 / 0.6 - 0.9 cm LVPW Systolic Thickness 1.4 cm LVOT Diameter 0.0 cm LV Ejection Fraction 2D Teich 38.6 % LV Ejection Fraction MOD 2C 57.0 % LV Ejection Fraction 2C AL 59.3 % LA Diameter 4.1 cm Aorta at Sinotubular Diameter 4.0 cm IVC Diameter 1.6 cm M-MODE LV Diastolic Diameter MM 5.3 cm 4.2 - 5.9 / 3.9 - 5.3 cm LV Systolic Diameter MM 4.1 cm LV Ejection Fraction MM Teich 45.6 % IVS Diastolic Thickness MM 1.2 cm 0.6 - 1.0 / 0.6 - 0.9 cm IVS Systolic Thickness MM 1.6 cm LVPW Diastolic Thickness MM 1.1 cm 0.6 - 1.0 / 0.6 - 0.9 cm LVPW Systolic Thickness MM 1.6 cm RV Diastolic Diameter MM 2.3 cm Aortic Annulus Diameter 4.5 cm LA Ao Ratio MM 0.9 DOPPLER AV Peak Velocity 262.0 cm/s LVOT Peak Velocity 75.0 cm/s AV Area Cont Eq vti 0.0 cm squared AV Area Cont Eq pk 0.0 cm squared MV Area PHT 5.0 cm squared Mitral E to A Ratio 0.7 MV E' Velocity 35.5 cm/s Mitral E to MV E' Ratio 6.0 Mitral E to LV E' Lateral Ratio 4.9 Mitral E to LV E' Septal Ratio 8.0 TR Peak Velocity 278.3 cm/s TR Peak Gradient 31.0 mmHg RV Acceleration Time 0.1 s FINDINGS Left Ventricle Normal left ventricular cavity size. Mildly increased left ventricular wall thickness. Moderately decreased left ventricular systolic function. Left ventricular ejection fraction is estimated at 30-35 %. Moderate global hypokinesis. Abnormal diastolic function. Right Ventricle Normal right ventricular size and systolic function. RVSP could not be calculated due to incomplete tricuspid regurgitation velocity profile. Right Atrium Right atrium not well visualized. Left Atrium Mildly increased left atrial size. Mitral Valve Mildly thickened mitral valve. No mitral valve stenosis. Trace mitral valve regurgitation. Aortic Valve Aortic valve not well visualized. Possibly mild aortic valve stenosis, mean gradient 9 mmHg, DENNYS 0.8 cm squared (LVOT 18 mm). However left ventricular outflow tract and peak velocity through aortic valve were not well assessed in the study. Mild aortic valve regurgitation. Tricuspid Valve Tricuspid valve not well visualized. Pulmonic Valve Pulmonic valve not well visualized. Pericardium No pericardial effusion. Aorta Dilated ascending aorta measured at 46 mm anteroposteriorly. IVC Inferior vena cava not visualized. CONCLUSIONS 1. Normal left ventricular cavity size. Mildly increased left ventricular wall thickness. Moderately decreased left ventricular systolic function. Left ventricular ejection fraction is estimated at 30-35 %. Moderate global hypokinesis. Abnormal diastolic function. 2. Normal right ventricular size and systolic function. 3. Possibly mild aortic valve stenosis, mean gradient 9 mmHg, DENNYS 0.8 cm squared (LVOT 18 mm). However left ventricular outflow tract and peak velocity through aortic valve were not well assessed in the study. Mild aortic valve regurgitation. 4. Ascending aorta dilated at 46 mm anteroposteriorly. 5. DELMI may be considered for assessment of aortic valve. 6. When compared to study dated 09/11/2020, left ventricular systolic function seems to have decreased. Elli Siddiqui MD (Electronically Signed) Final Date: 10 July 2022 09:34 S
== END 2022-07-08 07:59 | disposition home or self-care (01) ==
LOC: RAD 07:58
PROVIDERS: PCP Family Medicine; Visit Provider Internal Medicine Cardiovascular Disease
DX: R06.02 Shortness of breath (principal); I34.0 Nonrheumatic mitral (valve) insufficiency; I50.9 Heart failure, unspecified; I51.9 Heart disease, unspecified; I35.0 Nonrheumatic aortic (valve) stenosis
CPT/HCPCS: 93306

== ENCOUNTER → 2022-08-20 07:49 | Outpatient (BNVA) | payer MEDICARE, MEDICAID, SELFPAY | PROVIDERS: PCP Family Medicine; Referring Provider Family Medicine; Visit Provider Internal Medicine | DX: E21.3 Hyperparathyroidism, unspecified (principal); I50.9 Heart failure, unspecified; Z79.899 Other long term (current) drug therapy | CPT/HCPCS: 36415; 80053; 82306; 82310; 82330; 83970; 84100; 99204 ==

== ENCOUNTER 2022-09-17 07:50 | Inpatient (IN) | payer MEDICARE, MEDICAID, SELFPAY ==
[2022-09-17 07:51] VITALS: BP 122/81; PULSE 120; RESP 33; TEMP 36.9; O2SAT 92
--- NOTE | 2022-09-17 08:04 | XRR_ITS ---
PROCEDURE INFORMATION: Exam: XR Chest Exam date and time: 09/17/2022 8:22 AM Age: 77 years old Clinical indication: Cough and dyspnea; Additional info: Dyspnea/cough TECHNIQUE: Imaging protocol: Radiologic exam of the chest. Views: 1 view. Total images: 37 COMPARISON: CR XR chest 1V portable [id number] 09/28/2020 8:05 PM FINDINGS: Lungs: Nonspecific left lung base opacity favors atelectasis or pneumonia. Trace atelectasis or scar noted in the right lung base. Pleural spaces: There is blunting of the left costophrenic angle, likely indicating a moderate pleural effusion. Heart/Mediastinum: Heart is enlarged but stable when compared to the prior exam. Bones/joints: Left shoulder arthroplasty. Osseous structures are unchanged from the prior exam. XR/XR chest 1V portable [id number] IMPRESSION: 1. Heart is enlarged but stable when compared to the prior exam. 2. Nonspecific left lung base opacity favors atelectasis or pneumonia. 3. There is blunting of the left costophrenic angle, likely indicating a moderate pleural effusion. 4. Trace atelectasis or scar noted in the right lung base.
--- NOTE | 2022-09-17 08:05 | ED_ITS ---
HPI - Fall General: Chief Complaint: Fall Stated Complaint: fall-no pain Time Seen by Provider: 09/17/22 07:53 Source: patient Mode of arrival: ambulatory History of Present Illness: 77-year-old female presents to the emergency room after a fall at home. I discussed with the patient that she actually slid out of her chair rather than falling per se. But she was unable to get up and was on the floor for over 8 hours. She has a lot of arthritic complaints and has a essentially permanent torticollis with her head side bent to the left and slightly rotated she states she aches all over but has no specific area that the problem. She was able to stand to get herself up her family found her this morning. She denies any chest pain or shortness of breath. Family at the bedside reports that she has been increasingly confused. Sometime ago they took her off of trazodone they thought it may have been related to that. She they reports she been on it for several years. She is currently on amitriptyline and statin MD complaint: fall Onset (ago): hour(s) Fall from: chair Fall witnessed: no Place fall occurred: home Loss of consciousness: None Prolonged down time: hour(s) (~8 ) Symptoms prior to fall: none Quality: aching Associated symptoms-after fall: Reports confusion, difficulty walking, neck pain (Chronic) and weakness; Denies abdominal pain, chest pain, headache(s), hematuria, lightheadedness, numbness, short of breath or vertigo Review of Systems Const: Denies: fever(s), chills, body aches, change in appetite, fatigue or malaise ENMT: Denies: throat pain, ear or mastoid pain, nasal discharge or nasal congestion Card: Denies: chest pain or lightheadedness Resp: Denies: dyspnea, productive cough or non-productive cough GI: Denies: abdominal pain, nausea or vomiting : Denies: dysuria, urinary frequency, urinary urgency or hematuria Musc: Reports: neck pain (Chronic) Skin/Breast: Denies: rash or pruritus Neuro: Reports: difficulty walking and confusion; Denies: headache(s) or vertigo PFSH ED PFSH: Medical History Anemia Aortic root dilatation Cellulitis Congestive heart failure Essential hypertension Fatigue Left ventricular dysfunction Left ventricular hypertrophy Medication management Mild aortic insufficiency Mitral insufficiency Mixed hyperlipidemia Pulmonary hypertension Surgical History History of cataract extraction History of shoulder surgery Social History Smoking and tobacco status: never smoked Second hand smoke exposure: No Alcohol intake: never Desire information about alcohol rehabilitation?: No Counseling given: No Desire information about substance/drug rehabilitation?: No Counseling given: No Physical Exam Const: GENERAL APPEARANCE: cooperative and comfortable ORIENTATION/CONSCIOUSNESS: Yes awake HENMT: COMMON NORMALS: normocephalic, atraumatic and hearing grossly normal bilaterally HEAD & SCALP: normocephalic and atraumatic Resp: COMMON NORMALS: normal respiratory effort, No retractions, No use of accessory muscles and clear to auscultation bilaterally AUSCULTATION: clear to auscultation bilaterally Cardio: COMMON NORMALS: regular rate, regular rhythm and No murmurs present (Cardio) RATE: regular rate RHYTHM: regular rhythm GI: COMMON NORMALS: Soft to palpation and No hepatosplenomegaly present AUSCULTATION: Yes normoactive bowel sounds PALPATION: Yes Soft to palpation, No Tenderness to palpation present (GI), No Guarding due to palpation present (GI) and Yes No hepatosplenomegaly present Extremity: COMMON NORMALS: normal to inspection, capillary refill normal, no clubbing, cyanosis or edema, no calf tenderness and no pedal edema Skin: COMMON NORMALS: no rashes or lesions noted GENERAL SKIN EXAM: no rashes or lesions noted Course Vital Signs: Vital signs: Vital Signs Temperature 98.5 F 09/17/22 07:51 Pulse Rate 108 H 09/17/22 12:19 Respiratory Rate 33 H 09/17/22 07:51 Blood Pressure 122/81 09/17/22 07:51 Pulse Oximetry 93 09/17/22 12:19 Oxygen Delivery Me thod 09/17/22 12:19 Oxygen Flow Rate 3 09/17/22 12:19 MDM - Fall Medical Decision Making Labs and imaging reviewed patient has a mild rhabdomyolysis with some underlying chronic kidney disease. We will go ahead and admit her she is given gentle rehydration. Medical Records I reviewed the patient's medical records. Lab Data I reviewed the patient's lab results. 09/17/22 08:30 09/17/22 08:30 Radiology Impressions Chest X-Ray 09/17/22 08:04 IMPRESSION: 1. Heart is enlarged but stable when compared to the prior exam. 2. Nonspecific left lung base opacity favors atelectasis or pneumonia. 3. There is blunting of the left costophrenic angle, likely indicating a moderate pleural effusion. 4. Trace atelectasis or scar noted in the right lung base. Hip/Pelvis X-Ray 09/17/22 10:14 IMPRESSION: 1. Under penetrated x-ray significantly limits evaluation. No gross osseous pathology detected. 2. Bowel gas pattern is mildly distended but nonobstructive. Cervical Spine CT 09/17/22 10:42 IMPRESSION: No evidence of acute fracture or dislocation. Head CT 09/17/22 10:42 IMPRESSION: 1. No evidence of intracranial hemorrhage or mass effect. 2. Advanced small vessel changes with moderate parenchymal volume loss. 3. Chronic lacunar infarcts in the bilateral basal ganglia and thalamus. Chronic lacunar infarcts in the superior cerebellum. 4. Chronic infarcts with encephalomalacia in the LEFT cerebellum and RIGHT parietal lobes. 5. Dense intracranial vascular calcification. 6. No acute intracranial findings. Laboratory Results WBC 10.6 10^3/uL (4.0-10.0) H 09/17/22 08:30 RBC 4.91 10^6/uL (4.1-5.3) 09/17/22 08:30 Hgb 13.7 g/dL (11.5-15.3) 09/17/22 08:30 Hct 45.0 % (37.0-47.0) 09/17/22 08:30 MCV 91.6 fl (81-99) 09/17/22 08:30 MCH 27.9 pg (28.0-34.0) L 09/17/22 08:30 MCHC 30.4 g/dL (30.0-36.0) 09/17/22 08:30 RDW 13.2 % (12.1-15.1) 09/17/22 08:30 Plt Count 243 10^3/cmm (130-400) 09/17/22 08:30 MPV 10.4 fL (7.4-10.4) 09/17/22 08:30 Neut % (Auto) 85.5 % 09/17/22 08:30 Lymph % (Auto) 4.1 % 09/17/22 08:30 Campbell % (Auto) 9.6 % 09/17/22 08:30 Eos % (Auto) 0.0 % 09/17/22 08:30 Baso % (Auto) 0.2 % 09/17/22 08:30 Neut # (Auto) 9.09 10^3/uL (1.8-7.7) H 09/17/22 08:30 Lymph # (Auto) 0.4 10^3/uL (0.8-4.8) L 09/17/22 08:30 Campbell # (Auto) 1.0 10^3/uL (0.2-0.9) H 09/17/22 08:30 Eos # (Auto) 0.0 10^3/uL (0.0-0.8) 09/17/22 08:30 Baso # (Auto) 0.0 10^3/uL (0.0-0.1) 09/17/22 08:30 Nucleated RBC % (auto) 0 % 09/17/22 08:30 Nucleated RBCs # 0.0 /100WBC 09/17/22 08:30 Sodium 137 mmol/L (136-145) 09/17/22 09:25 Potassium 4.8 mmol/L (3.5-5.1) 09/17/22 09:25 Chloride 93 mmol/L (98-107) L 09/17/22 09:25 Carbon Dioxide 35 mmol/L (22-29) H 09/17/22 09:25 Anion Gap 13.8 (5-19) 09/17/22 09:25 BUN 30 mg/dL (8-23) H 09/17/22 09:25 Creatinine 1.1 mg/dL (0.5-0.9) H 09/17/22 09:25 GFR Calculation Not Reportable 09/17/22 09:25 Glucose 125 mg/dL (65-115) H 09/17/22 09:25 Calculated Osmolality 292 mOsm/kg (285-295) 09/17/22 09:25 Lactic Acid 1.0 mmol/L (0.5-2.2) 09/17/22 08:30 Calcium 10.3 mg/dL (8.5-10.5) 09/17/22 09:25 Total Bilirubin 0.8 mg/dL (0.15-1.2) 09/17/22 09:25 AST 64 U/L (0-32) H 09/17/22 09:25 ALT 26 U/L (0-33) 09/17/22 09:25 Alkaline Phosphatase 186 U/L (35-105) H 09/17/22 09:25 Creatine Kinase 2288 U/L (26-192) H* 09/17/22 09:25 Total Protein 6.9 g/dL (6.6-8.7) 09/17/22 09:25 Albumin 3.7 g/dL (3.5-5.2) 09/17/22 09:25 Globulin 3.2 g/dL (1.3-4.6) 09/17/22 09:25 Urine Color Yellow (Yellow) 09/17/22 10:00 Urine Appearance Clear (CLEAR) 09/17/22 10:00 Urine pH 6.5 (5-7) 09/17/22 10:00 Ur Specific [place] 1.005 (1.005-1.030) 09/17/22 10:00 Urine Protein Neg (Negative) 09/17/22 10:00 Urine Glucose (UA) Norm (Normal) 09/17/22 10:00 Urine Ketones 1+ (Negative) H 09/17/22 10:00 Urine Blood Neg (Negative) 09/17/22 10:00 Urine Nitrate Negative (Negative) 09/17/22 10:00 Urine Bilirubin Neg (Negative) 09/17/22 10:00 Urine Urobilinogen 1 mg/dL (Negative) H 09/17/22 10:00 Ur Leukocyte Esterase Negative (Negative) 09/17/22 10:00 Discharge Plan Discharge Patient Disposition: Placed in Observation Clinical Impression: Rhabdomyolysis, Fall, Cognitive dysfunction, Weakness, Torticollis Condition: Stable Prescriptions: No Action tizanidine 2 mg tablet 2 mg PO BID tramadol 50 mg tablet 50 mg PO Q8H PRN (Reason: Pain) furosemide 40 mg tablet 40 mg PO BID@08,16 magnesium oxide 400 mg magnesium capsule 400 mg PO QAM lovastatin 40 mg tablet 80 mg PO BEDTIME Qty: 180 1RF metoprolol succinate 25 mg tablet extended release 24 hr 25 mg PO BID Qty: 180 3RF ascorbic acid (vitamin C) [Vitamin C] 500 mg Tablet 500 mg PO QAM amlodipine 2.5 mg tablet 2.5 mg PO DAILY aspirin 81 mg tablet,delayed release (DR/EC) 81 mg PO QAM amitriptyline 25 mg tablet 25 mg PO BEDTIME lisinopril 10 mg tablet 10 mg PO BEDTIME multivitamin Tablet 1 tab PO DAILY Tylenol Ex Str Rapid Release 500 mg Tablet 1,000 mg PO Q6H PRN (Reason: Pain) Tylenol Arthritis Pain 650 mg Tablet Extended Release 1,300 mg PO Q12H PRN (Reason: Pain) Biofreeze (menthol) 4 % Gel 1 applic TOPICAL TID PRN (Reason: Pain) potassium chloride 20 mEq tablet,ER particles/crystals 20 meq PO QAM Referrals: René Merritt [Primary Care Provider] - Coding Level of Care Code ED Financial Center Manager for Brayden Hickman
--- NOTE | 2022-09-17 08:05 | ECG_ITS ---
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 Measurements Intervals [place] Rate: 107 P: 56 IL: 170 QRS: -71 QRSD: 150 T: 101 QT: 344 QTc: 460 Interpretive Statements SINUS TACHYCARDIA LEFT AXIS DEVIATION [QRS AXIS < -30] LEFT BUNDLE BRANCH BLOCK [120+ ms QRS DURATION, 80+ ms Q/S IN V1/V2, 85+ ms R IN I/aVL/V5/V6] Compared to ECG 09/29/2020 01:51:43 Sinus rhythm no longer present Electronically Signed On 09-17-2022 18:09:32 [employer]UFA[employer]URING [employer] by Sal Sr M.D. [id number]
[2022-09-17 08:41] LABS: Basophils % 0.2 %; Hemoglobin 13.7 g/dL (11.5-15.3); Lymphocytes # 0.4 10^3/uL (0.8-4.8); Lymphocytes % 4.1 %; Mean Corpuscular HGB Conc 30.4 g/dL (30.0-36.0); Mean Corpuscular Hemoglobin 27.9 pg (28.0-34.0); Mean Corpuscular Volume 91.6 fl (81-99); Mean Platelet Volume 10.4 fL (7.4-10.4); Monocytes % 9.6 %; Neutrophils # 9.09 10^3/uL (1.8-7.7); Neutrophils % 85.5 %; Nucleated Red Blood Cells % 0 %; Platelet Count 243 10^3/cmm (130-400); Red Blood Count 4.91 10^6/uL (4.1-5.3); Red Cell Distribution Width 13.2 % (12.1-15.1); White Blood Count 10.6 10^3/uL (4.0-10.0)
[2022-09-17 09:59] LABS: Alanine Aminotransferase 26 U/L (0-33); Albumin Level 3.7 g/dL (3.5-5.2); Alkaline Phosphatase 186 U/L (35-105); Anion Gap 13.8 (5-19); Aspartate Amino Transferase 64 U/L (0-32); Blood Urea Nitrogen 30 mg/dL (8-23); Calcium 10.3 mg/dL (8.5-10.5); Carbon Dioxide 35 mmol/L (22-29); Chloride 93 mmol/L (98-107); Globulin 3.2 g/dL (1.3-4.6); Glucose 125 mg/dL (65-115); Osmolality Calculated 292 mOsm/kg (285-295); Potassium 4.8 mmol/L (3.5-5.1); Sodium 137 mmol/L (136-145); Total Bilirubin 0.8 mg/dL (0.15-1.2); Total Protein 6.9 g/dL (6.6-8.7)
[2022-09-17 10:09] LABS: Add Urine Microscopic? NO; Charge for UA Resulting for Rev
--- NOTE | 2022-09-17 10:14 | XRR_ITS ---
PROCEDURE INFORMATION: Exam: XR Bilateral Hips Exam date and time: 09/17/2022 10:19 AM Age: 77 years old Clinical indication: Injury or trauma; Fall; Blunt trauma (contusions or hematomas); Bilateral; Hip and pelvic region TECHNIQUE: Imaging protocol: Radiologic exam of the bilateral hips. Views: 2 views of hips with pelvis when performed. Total images: 51 COMPARISON: No relevant prior studies available. FINDINGS: Bones/joints: Under penetrated x-ray significantly limits evaluation. No gross osseous pathology detected. Soft tissues: Quality of examination is limited by body habitus. Gastrointestinal tract: Bowel gas pattern is mildly distended but nonobstructive. XR/XR hip BI 2V wo/w pel [id number] IMPRESSION: 1. Under penetrated x-ray significantly limits evaluation. No gross osseous pathology detected. 2. Bowel gas pattern is mildly distended but nonobstructive.
[2022-09-17 10:15] LABS: Creatine Phosphokinase 2288 U/L (26-192)
[2022-09-17 10:26] LABS: Bilirubin Urine Neg (Negative); Blood Urine Neg (Negative); Glucose Urine UA Norm (Normal); Ketones Urine 1+ (Negative); Leukocyte Esterase Urine Negative (Negative); Nitrate Urine Negative (Negative); Protein Urine Neg (Negative); Specific Gravity, Urine 1.005 (1.005-1.030); Urine Appearance Clear (CLEAR); Urine Color Yellow (Yellow); Urobilinogen Urine 1 mg/dL (Negative); pH Urine 6.5 (5-7)
--- NOTE | 2022-09-17 10:38 | PC.PHAR ---
pts family verified pts medications-family states the pt had amitriptyline sat night states [facility] states the pt didnt take friday but took fri09/16/22-notes are made in the pharmacy comments
--- NOTE | 2022-09-17 10:42 | CT_ITS ---
WS: [id number] CT CERVICAL TRAUMA TECHNIQUE: Noncontrast CT of the cervical spine with coronal and sagittal reformatted images. CLINICAL INFORMATION: Fall COMPARISON: None. DLP: 1324.[address] scans at [facility] use at least one of these dose optimization techniques: automated e xposure control; mA and/or kV adjustment per patient size (includes targeted exams where dose is matc hed to clinical indication); or iterative reconstruction. FINDINGS: Straightening of the normal cervical lordosis. Cervical curve convex RIGHT. Moderate spondylitic trotter ges. Grade 1 anterolisthesis C3 on C4. Slight anterolisthesis C4 on C5. Disc space narrowing worse at C5-C6 and C6-C7. Normal craniocervical junction. Normal C1-C2 articulation. Dens is normal in appear ance. Normal occipital condyles. No high-grade spinal canal narrowing. Normal C1 ring. No evidence of acute fracture or dislocation. Normal prevertebral soft tissues. Nodular thyroid gland. Mastoids air cells are well aerated. Carotid bulb calcification. CT/CT cervical spin wo con* [id number] IMPRESSION: No evidence of acute fracture or dislocation.
--- NOTE | 2022-09-17 10:42 | CT_ITS ---
WS: [id number] CT HEAD TECHNIQUE: Noncontrast CT of the head obtained from the skullbase to the vertex. CLINICAL INFORMATION: Fall COMPARISON: None. DLP: 1324.[address] scans at [facility] use at least one of these dose optimization techniques: automated e xposure control; mA and/or kV adjustment per patient size (includes targeted exams where dose is matc hed to clinical indication); or iterative reconstruction. FINDINGS: No evidence of intracranial hemorrhage or mass effect. Ventricular system and basal cisterns are nguyen nt. Advanced small vessel changes with moderate parenchymal volume loss. Chronic lacunar infarcts in the bilateral basal ganglia, bilateral thalamus. Chronic infarcts in the LEFT cerebellum with encepha lomalacia. Chronic RIGHT parietal infarct with encephalomalacia. Chronic lacunar infarcts in the superior cerebellum bilaterally. Dense intracranial vascular calcific ation. Dense cavernous carotid and supraclinoid ICA calcification. Mild mucosal thickening ethmoid air cells and LEFT frontal ethmoidal recess. Mastoid air cells well a erated. Normal posterior nasopharynx. CT/CT head wo con* [id number] IMPRESSION: 1. No evidence of intracranial hemorrhage or mass effect. 2. Advanced small vessel changes with moderate parenchymal volume loss. 3. Chronic lacunar infarcts in the bilateral basal ganglia and thalamus. Chron ic lacunar infarcts in the superior cerebellum. 4. Chronic infarcts with encephalomalacia in the LEFT cerebellum and RIGHT par ietal lobes. 5. Dense intracranial vascular calcification. 6. No acute intracranial findings.
[2022-09-17] MEDS: sodium chloride 0.9% 1,000 ML 999 ML IV (11:53)
[2022-09-17 12:19] VITALS: PULSE 108; O2SAT 93
--- NOTE | 2022-09-17 13:45 | PM.HP ---
Providers/Chief Complaint Admitting Physician: Blayne Denton MD Primary Care Provider: René Merritt Chief Complaint: fall-no pain History of Present Illness Yamileth Edge is a 77 year old female presenting to the emergency department after being found down. She apparently slipped at home, and was down for 8 to 12 hours. She reports some pain all over, mainly in her lower extremities. She was recently in the hospital, from September 28 to with right lower extremity cellulitis. At that time her amitriptyline was discontinued. She has had intermittent severe depression, and had been voicing at home recently that she felt worthless, nobody cares, and there was no reason to live. Family has removed the gun from her premises. They have noticed she has hallucinations at time. They were worried this was related to her not getting the amitriptyline so restarted that last night. She has not had any fever at home. No nausea or vomiting. Patient herself reports pain but no other significant complaints currently. In the emergency department she has had fluids given, and imaging ordered. Review of Systems General: Reports: ROS unobtainable due to mental status (Limited review of systems taken from family, patient confused) Medications/Allergies Home Medications Medication Instructions Recorded Confirmed Last Taken Type ascorbic acid (vitamin C) 500 mg 500 mg PO QAM 09/29/20 09/17/22 Unknown History tablet (Vitamin C) tizanidine 2 mg tablet 2 mg PO BID 09/24/21 09/17/22 Unknown History tramadol 50 mg tablet 50 mg PO Q8H PRN Pain 09/24/21 09/17/22 Unknown History furosemide 40 mg tablet 40 mg PO BID@08,16 edema 05/06/22 09/17/22 Unknown History magnesium oxide 400 mg PO QAM 05/06/22 09/17/22 Unknown History lovastatin 40 mg tablet 80 mg PO BEDTIME #180 tabs 07/30/22 09/17/22 Unknown Rx metoprolol succinate 25 mg 25 mg PO BID #180 tabs 08/09/22 09/17/22 Unknown Rx tablet,extended release 24 hr acetaminophen 500 mg tablet 1,000 mg PO Q6H PRN Pain 09/17/22 09/17/22 Unknown History acetaminophen 650 mg 1,300 mg PO Q12H PRN Pain 09/17/22 09/17/22 Unknown History tablet,extended release (Tylenol Arthritis Pain) amitriptyline 25 mg tablet 25 mg PO BEDTIME 09/17/22 09/17/22 09/16/22 History amlodipine 2.5 mg tablet 2.5 mg PO DAILY 09/17/22 09/17/22 Unknown History aspirin 81 mg tablet,delayed 81 mg PO QAM 09/17/22 09/17/22 Unknown History release lisinopril 10 mg tablet 10 mg PO BEDTIME 09/17/22 09/17/22 Unknown History menthol 4 % topical gel (Biofreeze 1 applic topical TID PRN Pain 09/17/22 09/17/22 Unknown History (menthol)) multivitamin 1 tab PO DAILY 09/17/22 09/17/22 Unknown History potassium chloride 20 mEq 20 meq PO QAM 09/17/22 09/17/22 Unknown History tablet,extended release(part/cryst) Allergies Allergy/AdvReac Type Severity Reaction Status Date / Time diclofenac Allergy Intermediate sick Verified 08/20/22 07:55 acetaminophen Allergy Unknown Verified 09/17/22 10:29 [From Tylenol-Codeine] codeine Allergy Unknown Verified 09/17/22 10:29 [From Tylenol-Codeine] Iodinated Contrast Media Allergy Unknown Verified 09/17/22 10:29 iodine Allergy unknown Verified 08/20/22 07:55 f d and c blue #1 Allergy Unknown Uncoded 09/17/22 10:29 PFSH Acute PFSH: Medical History (Updated 09/17/22 @ 14:05 by Blayne Denton MD) Anemia Aortic root dilatation Aortic stenosis Cellulitis Congestive heart failure Depression Essential hypertension Fatigue Insomnia Left ventricular dysfunction Left ventricular hypertrophy Medication management Mild aortic insufficiency Mitral insufficiency Mixed hyperlipidemia Pulmonary hypertension Surgical History History of cataract extraction History of shoulder surgery Social History Smoking and tobacco status: never smoked Second hand smoke exposure: No Alcohol intake: never Desire information about alcohol rehabilitation?: No Counseling given: No Desire information about substance/drug rehabilitation?: No Counseling given: No Other PFSH information: Supplemental PFSH Information: Family history noncontributory Vitals/I&O/Wt Last Vital Signs Temp 98.5 F 09/17/22 07:51 Pulse 108 H 09/17/22 12:19 Resp 33 H 09/17/22 07:51 BP 122/81 09/17/22 07:51 Pulse Ox 93 09/17/22 12:19 O2 Del Method 09/17/22 12:19 O2 Flow Rate 3 09/17/22 12:19 Physical Exam Narrative: General exam is a white female, with obvious torticollis to the left, who is conversant and alert but confused. Occasionally yells out in pain. HEENT: Atraumatic and normocephalic. Pupils equally round. Oropharynx clear. Neck demonstrates torticollis, no mass. Head and chin to the left Cardiovascular mild tachycardia, 2/6 systolic murmur Lungs clear no wheezing or crackles Abdomen is soft nontender positive bowel sounds. exam is deferred Extremities no cyanosis clubbing or edema, cap refill brisk Skin no rash Neuro no obvious focal deficits, confusion noted Data 09/17/22 08:30 09/17/22 09:25 Other Labs: Cervical spine x-ray no fracture Hip and pelvis no obvious fracture Chest x-ray which I reviewed demonstrates blunting left costophrenic angle, possible effusion versus atelectasis Lactic acid is 1.0 LFTs normal with exception of AST of 64 and alk phos of 186 CK elevated at 2288 Urinalysis negative EKG sinus tachycardia, left bundle, left axis deviation Recent echocardiogram in June 2022 demonstrated aortic valve area of 0.8, likely at least mild aortic valve stenosis. EF was 30 to 35%. Head CT demonstrates no acute changes. There is some advanced small vessel disease changes, chronic lacunar infarcts, chronic infarcts with encephalomalacia in the left cerebellum and right parietal lobes and some dense calcification. A&P Assessment and plan (1) Rhabdomyolysis: Patient presents with rhabdo, she was found down. Fluids have been initiated in the emergency department and will continue. However, this will need to be given cautiously secondary to her history of heart failure with low ejection fraction. At this point in time we will continue normal saline, at approximately 75 cc an hour and recheck CK in the morning. Will discontinue amitriptyline. This is a fall risk. Will keep muscle relaxant as needed, and monitor use. Fall precautions (2) Acute kidney injury: Patient presents with acute kidney injury. Urinalysis appears benign Recheck renal function in the morning If renal function worsens consider evaluation of urinary tract with imaging. (3) Acute encephalopathy: Patient appears to have acute encephalopathy. She has history of hallucinations. 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 Look for reversible causes of dementia with TSH, B12 Telemetry Check carotid duplex secondary to past history of CVA Continue aspirin Consider reinitiation of statin after rhabdomyolysis has resolved. (4) Depression: Patient has had significant depression in the past Currently she is having feelings of worthlessness, but does not appear to have active suicidal thoughts currently. Initiate sertraline 25 mg daily Will need close outpatient follow-up (5) Insomnia: Trazodone 100 mg p.o. nightly will be initiated. She has not been sleeping well and this could contribute to her encephalopathy. (6) Congestive heart failure: Patient with past history of congestive heart failure. Last echo, demonstrated EF of 30 to 35% On exam no evidence of failure but concern of left pleural effusion Qualifiers: Heart failure type: unspecified Heart failure chronicity: unspecified Qualified Code(s): I50.9 - Heart failure, unspecified (7) Pleural effusion: CT chest noncontrast for evaluation of left pleural effusion (8) Aortic stenosis: Aortic stenosis noted on last echocardiogram. Valve area may indicate more severe than mild that was noted on flow. DELMI would be required to be evaluated but family reports that they have been told in the past he is not a surgical candidate. (9) Hyperparathyroidism: Calcium is currently normal (10) Torticollis: Chronic (11) Weakness: Patient with significant weakness Physical therapy evaluation will likely need home health Plan Multiple other medical problems as outlined in past medical history Allow natural . Discussed in detail with family Heparin for DVT prophylaxis Attestations Medical Necessity Statement*: Will require greater than 2 midnight stay for evaluation of rhabdomyolysis, acute encephalopathy, acute kidney injury, likely left pleural effusion, fall, etc. Coding Level of Care Code 95263 High MDM includes risk/complexity, reviewing test results, ordering lab/other test(s), speaking with independent historian (other than patient) and independently interpretating test(s) (not separately recorded) Diagnoses Rhabdomyolysis M62.82 Acute kidney injury N17.9 Acute encephalopathy G93.40 Depression F32.A Insomnia G47.00 Congestive heart failure I50.9 Heart failure type: unspecified Heart failure chronicity: unspecified Pleural effusion J90 Aortic stenosis I35.0 Hyperparathyroidism E21.3 Torticollis M43.6 Weakness R53.1 Time Spent (min) 65
[2022-09-17] MEDS: metoprolol tartrate 25 mg Tablet 12.5 MG PO (14:41)
[2022-09-17] MEDS: TRAMadol 50 mg Tablet PO (14:41)
[2022-09-17 14:59] LABS: Thyroid Stimulating Hormone 0.71 uIU/mL (0.27-4.20); Vitamin B12 358 pg/mL (232-1245)
[2022-09-17] MEDS: sodium chloride 0.9% 500 ML IV (15:17)
[2022-09-17 15:43] VITALS: BP 101/63; PULSE 100; RESP 30; TEMP 37.7; O2SAT 90
--- NOTE | 2022-09-17 15:43 | CTR_ITS ---
PROCEDURE INFORMATION: Exam: CT Chest Without Contrast; Diagnostic Exam date and time: 09/17/2022 5:38 PM Age: 77 years old Clinical indication: Shortness of breath; Additional info: Possible left pleural effusion TECHNIQUE: Imaging protocol: Diagnostic computed tomography of the chest without contrast. Radiation optimization: All CT scans at this facility use at least one of these dose optimization techniques: automated exposure control; mA and/or kV adjustment per patient size (includes targeted exams where dose is matched to clinical indication); or iterative reconstruction. Other protocol: This patient has received 2 known CTs and 0 known cardiac nuclear medicine studies in the 12 months prior to the current study. COMPARISON: CR XR chest 1V portable [id number] 09/17/2022 8:22 AM RADIATION DOSE METRICS: Total DLP (mGy-cm): 671.02 FINDINGS: Lungs: There is respiratory motion artifact present with hypoventilatory changes in the trachea. There is consolidation or atelectasis in the left lower lobe with air bronchograms. There is also minimal posterior left upper lobe and right lower lobe atelectasis or consolidation. Pleural spaces: Unremarkable. No pneumothorax. No pleural effusion. Heart: Marked four-chamber cardiomegaly. Coronary arteries: Mild coronary artery atherosclerosis. Lymph nodes: Unremarkable. No enlarged lymph nodes. Vasculature: Aneurysmal dilatation of the ascending aorta to 5.5 cm. The descending aorta is also enlarged to 3.5 cm. Bones/joints: Postsurgical changes left proximal humerus. Soft tissues: Unremarkable. CT/CT chest con [id number] IMPRESSION: 1. Left lower lobe consolidation with air bronchograms suspicious for possible pneumonia. There are additional regions of atelectasis or consolidation in the posterior left upper lobe and the right lower lobe. Correlate for pulmonary infection. 2. Marked cardiomegaly. 3. Aneurysmal dilatation of the ascending aorta to 5.5 cm and descending thoracic aorta to 3.5 cm.
--- NOTE | 2022-09-17 15:43 | USCV_ITS ---
Yamileth Edge Age: 77 Gender: F : 1945 Exam Date: 09/17/2022 15:57 Ordering Phys: Blayne Denton MD Technologist: CT Exam Location: [facility] Indication: stroke Risk Factors: Previous Vascular Surgery: Right Brachial BP: / Left Brachial BP: / Right Left Velocity (cm/s) Spectral Plaque Velocity (cm/s) Spectral Plaque Syst/Diast Broadening Syst/Diast Broadening 76.90/ 19.20 Prox CCA / 66.00/ 20.20 Mid CCA / 81.40/ 20.45 Distal CCA / 76.90/ 22.00 Prox ICA / 125.70/30.90 Mid ICA / 118.00/35.30 Distal ICA / 113.60 ECA 1.31 ICA/CCA Antegrade Vertebral 48.50/ 19.80 cm/s / cm/s Bi Subclavian 77.20 FINDINGS rt side is without stenosis, the pt is unable to turn neck to towards the rt. An evaluation of the left carotid system is unatainable at this time via ultrasound. CONCLUSIONS Right ICA stenosis <50%. Moderate atheromatous plaque right carotid bulb/ICA. Left Carotid not evaluated due to inability to turn neck Normal antegrade Doppler flow noted in the right vertebral artery. Surjit Gibbs MD (Electronically Signed) Final Date: 17 September 2022 16:51 S
[2022-09-17 16:00] VITALS: BP 101/63; PULSE 100; RESP 30; TEMP 37.7; O2SAT 90
[2022-09-17] MEDS: sodium chloride 0.9% 1,000 ML 75 ML IV (17:47)
[2022-09-17] MEDS: heparin 5,000 unit/mL INJ 1 mL 5000 UNIT SUBCUT (17:48)
--- NOTE | 2022-09-17 18:55 | PC.NURSE ---
Patient arrived to unit via cart, AAOx4 with confusion and delayed speech. Patient neck is contracted to left side and screams at attempt to reposition. Patient has moisture damage under bilateral breast, bilateral axillary, bilateral perineal regions and pelvis, as well as sacrum. Sacral area has barely blanchable stage one wound. Placed inner dry in all the areas except sacrum. Sacrum had moisture cream applied, Patient refusing turns, stave planer tender and this nurse gave total bed bath. Family in waiting room, BP WNL, tachycardic and tachpneic (please see charting). Room clean and clutter free with call light within reach. Baker in place, patent and has had baker care. Report given bedside to oncoming nurse.
[2022-09-17 20:00] VITALS: BP 102/66; PULSE 102; RESP 18; TEMP 37.7; O2SAT 91
[2022-09-18] VITALS (19 sets, daily range): BP systolic 99–119; BP diastolic 58–78; PULSE 103–125; RESP 16–25; TEMP 36.8–37.8; O2SAT 89–95
[2022-09-18] MEDS: ondansetron 2 mg/ML SDV 2 mL 4 MG IVP (02:04)
[2022-09-18] MEDS: TRAMadol 50 mg Tablet PO ×2 (02:04→17:49)
[2022-09-18] MEDS: heparin 5,000 unit/mL INJ 1 mL 5000 UNIT SUBCUT ×2 (05:29→16:52)
[2022-09-18] MEDS: sodium chloride 0.9% 1,000 ML 75 ML IV (05:29)
[2022-09-18 06:19] LABS: Basophils % 0.3 %; Eosinophils % 0.1 %; Hematocrit 45.4 % (37.0-47.0); Hemoglobin 12.8 g/dL (11.5-15.3); Lymphocytes % 12.2 %; Mean Corpuscular HGB Conc 28.2 g/dL (30.0-36.0); Mean Corpuscular Hemoglobin 27.9 pg (28.0-34.0); Mean Platelet Volume 10.5 fL (7.4-10.4); Monocytes # 0.9 10^3/uL (0.2-0.9); Monocytes % 11.5 %; Neutrophils # 5.97 10^3/uL (1.8-7.7); Neutrophils % 75.4 %; Nucleated Red Blood Cells % 0 %; Platelet Count 207 10^3/cmm (130-400); Red Blood Count 4.58 10^6/uL (4.1-5.3); White Blood Count 7.9 10^3/uL (4.0-10.0)
[2022-09-18] MEDS: morphine 4 mg/mL SDV 1 mL 2 MG IVP (06:26)
[2022-09-18 06:31] LABS: Mean Corpuscular Volume 99.1 fl (81-99)
--- NOTE | 2022-09-18 06:47 | XR_ITS ---
WS: [id number] XR chest 1V portable [id number] REASON FOR EXAM: increasing oxygen requirements FINDINGS: Compared to the examination of 09/17/2022, there is an increasing amount of patchy airspace opacity in the left midlung field. There is also increased opacification in the left lower hemithorax. The right lung appears unchanged. Again is noted the significant cardiomegaly. XR/XR chest 1V portable [id number] IMPRESSION: Increasing airspace opacity in the left lung more compatible with pneumonitis a nd atelectasis than congestive failure.
[2022-09-18 06:51] LABS: Albumin Level 2.8 g/dL (3.5-5.2); Alkaline Phosphatase 160 U/L (35-105); Blood Urea Nitrogen 36 mg/dL (8-23); Calcium 9.2 mg/dL (8.5-10.5); Carbon Dioxide 31 mmol/L (22-29); Chloride 99 mmol/L (98-107); Globulin 3.5 g/dL (1.3-4.6); Glucose 84 mg/dL (65-115); Magnesium 2.5 mg/dL (1.7-2.3); Osmolality Calculated 298 mOsm/kg (285-295); Sodium 140 mmol/L (136-145); Total Bilirubin 0.4 mg/dL (0.15-1.2); Total Protein 6.3 g/dL (6.6-8.7)
[2022-09-18 06:55] LABS: Alanine Aminotransferase 30 U/L (0-33); Anion Gap 14.8 (5-19); Aspartate Amino Transferase 83 U/L (0-32); Potassium 4.8 mmol/L (3.5-5.1)
[2022-09-18 06:56] LABS: Creatine Phosphokinase 1893 U/L (26-192)
[2022-09-18] MEDS: FUROsemide 10 mg/mL SDV 4mL 40 MG IVP ×2 (06:56→17:22)
[2022-09-18] MEDS: cefTRIAXone 1,000 MG in sodium chloride 0.9% (plus) 50 ML 100 MG IV (08:12)
[2022-09-18] MEDS: azithromycin 500 MG in sodium chloride 0.9% 250 ML 250 MG IV (08:19)
--- NOTE | 2022-09-18 08:49 | PC.NURSE ---
Patient's oxygen level went down to 78 to 80% on 4L NC. Oxymask put on 15L to maintain sat of 88 to 90%. Dr. Caicedo notified. No new orders received. Patient continued to need oxymask at 15L but sat was staying 88 to 89%. Patient kept pulling oxygen off frequently. Dr. Caicedo notified again. She was maid aware that Dr. Castillo had ordered Lasix and DC fluids.
[2022-09-18 11:11] LABS: Influenza A by IFA negative (Negative); Influenza B by IFA negative (Negative)
--- NOTE | 2022-09-18 11:39 | PC.OT ---
OT EVALUATION ATTEMPTED. PATIENT NOT ALERT AND ON BIPAP. DAUGHTER PRESENT AND STATES SHE WILL BE HERE MOST OF THE DAY. WILL ATTEMPT OT EVALUATION AGAIN IN P.M.
[2022-09-18 12:45] LABS: Adenovirus Not Detected (NOT DETECT); Chlamydia Pneumoniae Not Detected (NOT DETECT); Coronavirus 229E,HKU1,NL63,OC4 Not Detected (NOT DETECT); Human Metapneumovirus Not Detected (NOT DETECT); Human Rhinovirus/Enterovirus Not Detected (NOT DETECT); Influenza A Not Detected (NOT DETECT); Influenza A H1 Not Detected (NOT DETECT); Influenza A H1-2009 Not Detected (NOT DETECT); Influenza A H3 Not Detected (NOT DETECT); Influenza B Not Detected (NOT DETECT); Mycoplasma Pneumoniae Not Detected (NOT DETECT); Parainfluenza Virus Type 1 Not Detected (NOT DETECT); Parainfluenza Virus Type 2 Not Detected (NOT DETECT); Parainfluenza Virus Type 3 Not Detected (NOT DETECT); Parainfluenza Virus Type 4 Not Detected (NOT DETECT); Respiratory Syncytial Virus A Not Detected (NOT DETECT); Respiratory Syncytial Virus B Not Detected (NOT DETECT); SARS-COV-2 Detected (NOT DETECT)
--- NOTE | 2022-09-18 13:44 | P.PN_ITS ---
Subjective Subjective: Patient had a difficult night. I visited her twice already today. At some point in the night she required some morphine. She also had increasing oxygen requirement and started running temperatures. She will open her eyes for me, but really is not communicating much. Family is not present at bedside and we discussed her care in detail. Medications: Reviewed: Yes Vitals/I&O/Wt Last Vital Signs Temp 100.1 F H 09/18/22 12:00 Pulse 125 H 09/18/22 12:00 Resp 25 H 09/18/22 12:00 BP 118/77 09/18/22 12:00 Pulse Ox 93 09/18/22 12:00 O2 Del Method 09/18/22 12:00 O2 Flow Rate 15 09/18/22 06:22 FiO2 50 09/18/22 10:56 09/17/22 09/18/22 09/18/22 22:59 06:59 14:59 Intake Total 1500 / 1500 877.5 / 2377.5 515 / 515 Output Total 450 / 450 Balance 1500 / 1500 877.5 / 2377.5 65 / 65 Physical Exam Narrative: General exam is a white female, torticollis seems a little less, opens eyes Neck demonstrates torticollis, no mass. Head and chin to the left Cardiovascular tachycardic, 2/6 systolic murmur Lungs diminished breath sounds bilaterally Abdomen is soft nontender positive bowel sounds. Extremities no cyanosis clubbing or edema, cap refill brisk Skin no rash Neuro opens eyes. Cannot really get her to respond in other ways currently. Urinary Catheter Management: Serrano: Cath Placed During This Visit: yes Urinary Catheter Date of Insertion: 09/17/22 Urinary Catheter Time of Insertion: 10:00 Data 09/18/22 06:02 09/18/22 06:02 A&P Assessment and plan (1) Rhabdomyolysis: Patient presents with rhabdo, she was found down. Fluids have now been discontinued secondary to worrisome increased need for oxygen CK has decreased since yesterday, now reduced to 1893. Recheck tomorrow. No further IV fluids Fall precautions (2) Acute kidney injury: Patient presents with acute kidney injury. Urinalysis appears benign Renal function slightly improved. Recheck tomorrow. (3) Acute encephalopathy: Patient appears to have acute encephalopathy. She has history of hallucinations. 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 TSH and B12 levels are normal Left carotid unable to be evaluated. Right less than 50% plaque Continue aspirin when able to take p.o. Consider reinitiation of statin after rhabdomyolysis has resolved. (4) Pneumonia due to COVID-19 virus: Secondary to fevers patient was screened for influenza today which was negative, Covid 19 which is positive. Clinical course consistent with COVID-19 pneumonia with hypoxia She has required BiPAP this morning, but of now reduced to a facemask. Initiate dexamethasone, remdesivir CRP, procalcitonin level tomorrow Follow LFTs closely while on remdesivir May have component of bacterial pneumonia secondary to consolidation the left lung. Initiated Rocephin and azithromycin. Cultures have been drawn. (5) Acute respiratory failure with hypoxia: Significantly decompensated today. Secondary to #4. Required 12 L last night on a nonrebreather, transition to BiPAP and now back to facemask. May be a candidate for high flow oxygen. Wean as tolerated. N.p.o. currently secondary to aspiration risk (6) Depression: Patient has had significant depression in the past Currently she is having feelings of worthlessness, but does not appear to have active suicidal thoughts currently. Initiate sertraline 25 mg daily when able to take p.o. Will need close outpatient follow-up (7) Insomnia: Trazodone 100 mg p.o. nightly will be initiated. She has not been sleeping well and this could contribute to her encephalopathy. (8) Congestive heart failure: Patient with past history of congestive heart failure. Last echo, demonstrated EF of 30 to 35% CT scan demonstrates pneumonia but no evidence of effusion. Lasix 40 mg IV given this morning. Will reassess later today regarding repeat dosing. Qualifiers: Heart failure type: unspecified Heart failure chronicity: unspecified Qualified Code(s): I50.9 - Heart failure, unspecified (9) Pleural effusion: CT chest noncontrast for evaluation of left pleural effusion (10) Aortic stenosis: Aortic stenosis noted on last echocardiogram. Valve area may indicate more severe than mild that was noted on flow. DELMI would be required to be evaluated but family reports that they have been told in the past he is not a surgical can didate. (11) Hyperparathyroidism: Calcium is currently normal (12) Torticollis: Chronic (13) Weakness: Patient with significant weakness Physical therapy evaluation will likely need home health Plan Multiple other medical problems as outlined in past medical history Allow natural . Discussed in detail with family Heparin for DVT prophylaxis Attestations Medical Necessity Statement*: Needs continued hospitalization secondary to COVID-19 pneumonia Coding Level of Care Code 79797 High MDM includes risk/complexity, reviewing test results, ordering lab/other test(s), speaking with independent historian (other than patient) and independently interpretating test(s) (not separately recorded) Diagnoses Rhabdomyolysis M62.82 Acute kidney injury N17.9 Acute encephalopathy G93.40 Pneumonia due to COVID-19 virus U07.1; J12.82 Acute respiratory failure with hypoxia J96.01 Depression F32.A Insomnia G47.00 Congestive heart failure I50.9 Heart failure type: unspecified Heart failure chronicity: unspecified Pleural effusion J90 Aortic stenosis I35.0 Hyperparathyroidism E21.3 Torticollis M43.6 Weakness R53.1 Time Spent (min) 45
[2022-09-18] MEDS: metoprolol tartrate 1 mg/1 mL SDV 5 mL 5 MG IVP ×2 (13:45→20:14)
--- NOTE | 2022-09-18 13:46 | PC.SLP ---
Orders received, chart reviewed. Patient is unable to be alert enough to participate in a bedside swallowing evaluation. Physical Therapy and Occupational Therapy were also present, putting the patient at bedside and providing encouragement to participate. Will continue to monitor and assess patient when appropriate.
--- NOTE | 2022-09-18 14:59 | ECG_ITS ---
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 Measurements Intervals [place] Rate: 106 P: 46 CA: 140 QRS: -65 QRSD: 148 T: 97 QT: 347 QTc: 461 Interpretive Statements SINUS TACHYCARDIA LEFT AXIS DEVIATION [QRS AXIS < -30] LEFT BUNDLE BRANCH BLOCK [120+ ms QRS DURATION, 80+ ms Q/S IN V1/V2, 85+ ms R IN I/aVL/V5/V6] Compared to ECG 09/17/2022 08:44:43 No significant changes Electronically Signed On 09-19-2022 0:19:11 DOUGH MIX[employer] by Abdullahi Ag M.D. [id number]
[2022-09-18] MEDS: dexamethasone 10 mg/mL INJ 6 MG IVP (15:02)
[2022-09-18] MEDS: remdesivir 200 MG in sodium chloride 0.9% (100 ml) 60 ML 100 MG IV (15:02)
[2022-09-18] MEDS: morphine 4 mg/mL SDV 1 mL 1 MG IVP (16:51)
[2022-09-18] MEDS: trazodone 100 mg Tablet PO (20:15)
[2022-09-19] VITALS (13 sets, daily range): BP systolic 101–122; BP diastolic 57–72; PULSE 84–115; RESP 16–24; TEMP 37.2–37.6; O2SAT 89–98
[2022-09-19] MEDS: metoprolol tartrate 1 mg/1 mL SDV 5 mL 5 MG IVP ×4 (03:06→20:18)
[2022-09-19] MEDS: tizanidine 4 mg Tablet 2 MG PO (03:21)
[2022-09-19] MEDS: TRAMadol 50 mg Tablet PO (03:22)
[2022-09-19] MEDS: aspirin 81 mg EC Tablet PO (05:55)
[2022-09-19 05:56] LABS: Hemoglobin 12.4 g/dL (11.5-15.3); Lymphocytes # 0.4 10^3/uL (0.8-4.8); Mean Corpuscular HGB Conc 28.2 g/dL (30.0-36.0); Mean Corpuscular Hemoglobin 27.7 pg (28.0-34.0); Mean Corpuscular Volume 98.4 fl (81-99); Mean Platelet Volume 10.2 fL (7.4-10.4); Monocytes # 0.3 10^3/uL (0.2-0.9); Monocytes % 6.5 %; Neutrophils # 4.09 10^3/uL (1.8-7.7); Neutrophils % 83.7 %; Nucleated Red Blood Cells % 0 %; Platelet Count 206 10^3/cmm (130-400); Red Blood Count 4.47 10^6/uL (4.1-5.3); Red Cell Distribution Width 13.6 % (12.1-15.1); White Blood Count 4.9 10^3/uL (4.0-10.0)
[2022-09-19] MEDS: heparin 5,000 unit/mL INJ 1 mL 5000 UNIT SUBCUT ×2 (05:56→17:33)
[2022-09-19] MEDS: cefTRIAXone 1,000 MG in sodium chloride 0.9% (plus) 50 ML 100 MG IV (06:03)
[2022-09-19 06:21] LABS: Alanine Aminotransferase 34 U/L (0-33); Alkaline Phosphatase 136 U/L (35-105); Aspartate Amino Transferase 72 U/L (0-32); Blood Urea Nitrogen 49 mg/dL (8-23); C Reactive Protein 215.5 mg/L (0.0-4.9); Carbon Dioxide 33 mmol/L (22-29); Chloride 101 mmol/L (98-107); Globulin 2.9 g/dL (1.3-4.6); Glucose 109 mg/dL (65-115); Osmolality Calculated 310 mOsm/kg (285-295); Sodium 143 mmol/L (136-145); Total Bilirubin 0.2 mg/dL (0.15-1.2); Total Protein 5.9 g/dL (6.6-8.7)
[2022-09-19 06:30] LABS: Creatine Phosphokinase 1632 U/L (26-192)
[2022-09-19] MEDS: azithromycin 500 MG in sodium chloride 0.9% 250 ML 250 MG IV (08:56)
--- NOTE | 2022-09-19 10:29 | P.PN_ITS ---
Subjective Subjective: Yamileth is much more alert this morning. She is confused. She tries to take off her oxygen continually. Family is at bedside. Medications: Reviewed: Yes Vitals/I&O/Wt Last Vital Signs Temp 98.9 F 09/19/22 08:00 Pulse 103 H 09/19/22 09:54 Resp 16 09/19/22 09:54 BP 107/66 09/19/22 08:00 Pulse Ox 92 09/19/22 09:54 O2 Del Method 09/19/22 08:00 O2 Flow Rate 60 09/19/22 09:54 FiO2 60 09/19/22 08:00 09/18/22 09/19/22 09/19/22 22:59 06:59 14:59 Intake Total 300 / 815 0 / 815 Output Total 800 / 1250 Balance 300 / 365 -800 / -435 Physical Exam Narrative: General exam is a white female, opens eyes quickly. Constantly conversing with herself and agitated. Now on high flow oxygen around 55% O2 requirement. Neck demonstrates torticollis, no mass. Head and chin to the left Cardiovascular tachycardic, 2/6 systolic murmur Lungs diminished breath sounds bilaterally Abdomen is soft nontender positive bowel sounds. Extremities no cyanosis clubbing or edema, cap refill brisk Skin no rash Urinary Catheter Management: Serrano: Cath Placed During This Visit: yes Urinary Catheter Date of Insertion: 09/17/22 Urinary Catheter Time of Insertion: 10:00 Data 09/19/22 05:42 09/19/22 05:42 A&P Assessment and plan (1) Rhabdomyolysis: Patient presents with rhabdo, she was found down. Fluids have now been discontinued secondary to worrisome increased need for oxygen CK has decreased. We will check 1 more time tomorrow We will not give continuous IV fluids secondary to concern this may worsen heart failure symptoms or breathing issues with COVID Fall precautions (2) Acute kidney injury: Patient presents with acute kidney injury. Urinalysis appears benign Renal function stable currently (3) Acute encephalopathy: Patient appears to have acute encephalopathy. She has history of hallucinations. 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 TSH and B12 levels are normal Left carotid unable to be evaluated. Right less than 50% plaque Continue aspirin when able to take p.o. Consider reinitiation of statin after rhabdomyolysis has resolved. Secondary to agitation Haldol will be given x1. (4) Pneumonia due to COVID-19 virus: Secondary to fevers patient was screened for influenza today which was negative, Covid 19 which is positive. Clinical course consistent with COVID-19 pneumonia with hypoxia She had intermittently required BiPAP, but has difficulty leaving it on. Trying high flow oxygen currently. Continue dexamethasone, remdesivir CRP high, procalcitonin normal Follow LFTs closely while on remdesivir. Slightly high. Repeat LFTs tomorrow. May have component of bacterial pneumonia secondary to consolidation the left lung. Continue Rocephin and azithromycin. Cultures have been drawn and negati ve to date. Check MRSA PCR. (5) Acute respiratory failure with hypoxia: Changed to high flow today. See notations under Covid 19. Requiring a significant amount of FiO2 at 55% (6) Depression: Patient has had significant depression in the past Currently she is having feelings of worthlessness, but does not appear to have active suicidal thoughts currently. Initiate sertraline 25 mg daily when able to take p.o. Will need close outpatient follow-up (7) Insomnia: Trazodone 100 mg p.o. nightly will be initiated. She has not been sleeping well and this could contribute to her encephalopathy. We will have to wait until she is more aware, taking p.o. (8) Congestive heart failure: Patient with past history of congestive heart failure. Last echo, demonstrated EF of 30 to 35% CT scan demonstrates pneumonia but no evidence of effusion. Qualifiers: Heart failure type: unspecified Heart failure chronicity: unspecified Qualified Code(s): I50.9 - Heart failure, unspecified (9) Pleural effusion: CT chest noncontrast for evaluation of left pleural effusion. This did not demonstrate effusion. Consolidation was noted. This increases chance of bacterial coinfection with COVID. (10) Aortic stenosis: Aortic stenosis noted on last echocardiogram. Valve area may indicate more severe than mild that was noted on flow. DELMI would be required to be evaluated but family reports that they have been told in the past he is not a surgical candidate. (11) Hyperparathyroidism: Calcium is currently normal (12) Torticollis: Chronic (13) Weakness: Patient with significant weakness Physical therapy evaluation will likely need home health Plan Multiple other medical problems as outlined in past medical history Allow natural . Discussed in detail with family Heparin for DVT prophylaxis Attestations Medical Necessity Statement*: Needs continued hospitalization for IV remdesivir, high oxygen requirement in this patient with multiple comorbidities, high risk for , with acute COVID-19 pneumonia, possible bacterial pneumonia, encephalopathy. Coding Level of Care Code 43268 High MDM includes risk/complexity, reviewing test results, ordering lab/other test(s) and speaking with independent historian (other than patient) Diagnoses Rhabdomyolysis M62.82 Acute kidney injury N17.9 Acute encephalopathy G93.40 Pneumonia due to COVID-19 virus U07.1; J12.82 Acute respiratory failure with hypoxia J96.01 Depression F32.A Insomnia G47.00 Congestive heart failure I50.9 Heart failure type: unspecified Heart failure chronicity: unspecified Pleural effusion J90 Aortic stenosis I35.0 Hyperparathyroidism E21.3 Torticollis M43.6 Weakness R53.1 Time Spent (min) 26
[2022-09-19] MEDS: haloperidol inj 5 mg/mL INJ 1 mL IVP (10:39)
--- NOTE | 2022-09-19 12:03 | PC.OT ---
OT TREATMENT HELD TODAY PER NURSING PATIENT IS EXHIBITING IMPAIRED COGNITION AND NOT APPROPRIATE FOR THERAPY THIS DATE. HALDOL GIVEN BY NURSE THIS A.M. TREATMENT TO BE ATTEMPTED TOMORROW BY THERAPY
--- NOTE | 2022-09-19 14:26 | PC.SLP ---
Several attempts have been made throughout the day to assess the patient for swallowing. Currently, the patient is not alert enough to fully participate in a bedside swallowing assessment.
[2022-09-19] MEDS: dexamethasone 10 mg/mL INJ 6 MG IVP (14:39)
[2022-09-19] MEDS: OLANZapine 10 mg VIAL 2.5 MG IM (17:33)
[2022-09-19] MEDS: remdesivir 100 MG in sodium chloride 0.9% (100 ml) 80 ML IV (20:17)
[2022-09-19] MEDS: morphine 4 mg/mL SDV 1 mL 1 MG IVP (22:30)
[2022-09-19] MEDS: ondansetron 2 mg/ML SDV 2 mL 4 MG IVP (22:31)
[2022-09-20] VITALS (13 sets, daily range): BP systolic 124–160; BP diastolic 76–94; PULSE 100–199; RESP 18–26; TEMP 36.9–37.5; O2SAT 89–96
[2022-09-20] MEDS: metoprolol tartrate 1 mg/1 mL SDV 5 mL 5 MG IVP ×4 (03:10→19:26)
[2022-09-20] MEDS: heparin 5,000 unit/mL INJ 1 mL 5000 UNIT SUBCUT ×2 (04:46→17:11)
[2022-09-20] MEDS: cefTRIAXone 1,000 MG in sodium chloride 0.9% (plus) 50 ML 100 MG IV (05:59)
[2022-09-20 06:26] LABS: Hematocrit 45.7 % (37.0-47.0); Hemoglobin 12.8 g/dL (11.5-15.3); Lymphocytes # 0.6 10^3/uL (0.8-4.8); Lymphocytes % 13.4 %; Mean Corpuscular Hemoglobin 27.5 pg (28.0-34.0); Mean Corpuscular Volume 98.3 fl (81-99); Mean Platelet Volume 10.4 fL (7.4-10.4); Monocytes # 0.6 10^3/uL (0.2-0.9); Monocytes % 12.8 %; Neutrophils # 3.45 10^3/uL (1.8-7.7); Neutrophils % 73.6 %; Nucleated Red Blood Cells % 0 %; Platelet Count 207 10^3/cmm (130-400); Red Blood Count 4.65 10^6/uL (4.1-5.3); Red Cell Distribution Width 13.3 % (12.1-15.1); White Blood Count 4.7 10^3/uL (4.0-10.0)
[2022-09-20 06:47] LABS: Alanine Aminotransferase 47 U/L (0-33); Albumin Level 2.8 g/dL (3.5-5.2); Alkaline Phosphatase 132 U/L (35-105); Aspartate Amino Transferase 110 U/L (0-32); Blood Urea Nitrogen 51 mg/dL (8-23); Calcium 10.9 mg/dL (8.5-10.5); Carbon Dioxide 33 mmol/L (22-29); Chloride 105 mmol/L (98-107); Globulin 2.9 g/dL (1.3-4.6); Glucose 103 mg/dL (65-115); Osmolality Calculated 316 mOsm/kg (285-295); Sodium 146 mmol/L (136-145); Total Bilirubin 0.2 mg/dL (0.15-1.2); Total Protein 5.7 g/dL (6.6-8.7)
[2022-09-20 07:36] LABS: Creatine Phosphokinase 2732 U/L (26-192)
[2022-09-20] MEDS: sodium chloride 0.45% 1,000 ML 30 ML IV (08:15)
[2022-09-20] MEDS: azithromycin 500 MG in sodium chloride 0.9% 250 ML 250 MG IV (09:27)
--- NOTE | 2022-09-20 10:49 | PM.PN ---
Subjective Subjective: Yamileth is more alert and conversive today, although still confused. Family is present at bedside. Medications: Reviewed: Yes Vitals/I&O/Wt Last Vital Signs Temp 98.8 F 09/20/22 08:00 Pulse 104 H 09/20/22 08:00 Resp 19 H 09/20/22 04:00 BP 155/84 09/20/22 08:00 Pulse Ox 92 09/20/22 08:00 O2 Del Method 09/20/22 08:00 O2 Flow Rate 60 09/20/22 08:00 FiO2 60 09/20/22 08:00 09/19/22 09/20/22 09/20/22 22:59 06:59 14:59 Intake Total 100 / 350 80 / 430 300 / 300 Output Total 1100 / 1100 Balance 100 / 350 -1020 / -670 300 / 300 Physical Exam Narrative: General exam is a white female, alert, asked to IM. Currently on 55% FiO2 Neck demonstrates torticollis, Cardiovascular tachycardic, 2/6 systolic murmur Lungs diminished breath sounds bilaterally Abdomen is soft nontender positive bowel sounds. Extremities no cyanosis clubbing or edema, cap refill brisk Skin no rash Urinary Catheter Management: Serrano: Cath Placed During This Visit: yes Urinary Catheter Date of Insertion: 09/17/22 Urinary Catheter Time of Insertion: 10:00 Data 09/20/22 06:03 09/20/22 06:05 A&P Assessment and plan (1) Rhabdomyolysis: Patient presents with rhabdo, she was found down. CK slightly worse today It has been tough to hydrate her significantly as she has a history of CHF, and COVID Fall precautions (2) Acute kidney injury: Patient presents with acute kidney injury. Urinalysis appears benign BUN is increasing (3) Acute encephalopathy: Patient appears to have acute encephalopathy. She has history of hallucinations. 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 Mental function is slightly better today. TSH and B12 levels are normal Left carotid unable to be evaluated. Right less than 50% plaque Continue aspirin when able to take p.o. Consider reinitiation of statin after rhabdomyolysis has resolved. Secondary to agitation she has received an occasional dose of Zyprexa (4) Pneumonia due to COVID-19 virus: Secondary to fevers patient was screened for influenza today which was negative, Covid 19 which is positive. Clinical course consistent with COVID-19 pneumonia with hypoxia She had intermittently required BiPAP, but has difficulty leaving it on. Trying high flow oxygen currently. Continue dexamethasone, remdesivir CRP high, procalcitonin normal. Repeat CRP tomorrow Follow LFTs closely while on remdesivir. Slightly higher today. Repeat tomorrow May have component of bacterial pneumonia secondary to consolidation the left lung. Continue Rocephin and azithromycin. Cultures have been drawn and negative to date. MRSA PCR was negative (5) Acute respiratory failure with hypoxia: Changed to high flow today. See notations under Covid 19. Requiring a significant amount of FiO2 at 55%. This is not yet significantly improved. (6) Depression: Patient has had significant depression in the past Currently she is having feelings of worthlessness, but does not appear to have active suicidal thoughts currently. Initiate sertraline 25 mg daily when able to take p.o. Will need close outpatient follow-up (7) Insomnia: Trazodone 100 mg p.o. nightly will be initiated. She has not been sleeping well and this could contribute to her encephalopathy. We will have to wait until she is more aware, taking p.o. (8) Congestive heart failure: Patient with past history of congestive heart failure. Last echo, demonstrated EF of 30 to 35% CT scan demonstrates pneumonia but no evidence of effusion. Qualifiers: Heart failure type: unspecified Heart failure chronicity: unspecified Qualified Code(s): I50.9 - Heart failure, unspecified (9) Pleural effusion: CT chest noncontrast for evaluation of left pleural effusion. This did not demonstrate effusion. Consolidation was noted. This increases chance of bacterial coinfection with COVID. Antibiotics as noted (10) Aortic stenosis: Aortic stenosis noted on last echocardiogram. Valve area may indicate more severe than mild that was noted on flow. DELMI would be required to be evaluated but family reports that they have been told in the past he is not a surgical candidate. (11) Hyperparathyroidism: Calcium is currently normal (12) Torticollis: Chronic (13) Weakness: Patient with significant weakness Physical therapy evaluation will likely need home health Plan Hypernatremia. Start half-normal saline at low rate Multiple other medical problems as outlined in past medical history Allow natural . Discussed in detail with family Heparin for DVT prophylaxis Attestations Medical Necessity Statement*: Needs continued hospitalization for IV remdesivir, respiratory support in this patient with high risk for decompensation Diagnoses Rhabdomyolysis M62.82 Acute kidney injury N17.9 Acute encephalopathy G93.40 Pneumonia due to COVID-19 virus U07.1; J12.82 Acute respiratory failure with hypoxia J96.01 Depression F32.A Insomnia G47.00 Congestive heart failure I50.9 Heart failure type: unspecified Heart failure chronicity: unspecified Pleural effusion J90 Aortic stenosis I35.0 Hyperparathyroidism E21.3 Torticollis M43.6 Weakness R53.1
[2022-09-20] MEDS: morphine 4 mg/mL SDV 1 mL 1 MG IVP (13:35)
[2022-09-20] MEDS: dexamethasone 10 mg/mL INJ 6 MG IVP (15:02)
[2022-09-20] MEDS: remdesivir 100 MG in sodium chloride 0.9% (100 ml) 80 ML IV (17:11)
[2022-09-21] VITALS (10 sets, daily range): BP systolic 151–162; BP diastolic 64–94; PULSE 97–105; RESP 16–24; TEMP 37–37.6; O2SAT 89–94
[2022-09-21] MEDS: metoprolol tartrate 1 mg/1 mL SDV 5 mL 5 MG IVP ×3 (01:50→15:47)
[2022-09-21] MEDS: heparin 5,000 unit/mL INJ 1 mL 5000 UNIT SUBCUT (04:18)
[2022-09-21 05:15] LABS: Basophils % 0.2 %; Hematocrit 48.5 % (37.0-47.0); Hemoglobin 13.4 g/dL (11.5-15.3); Lymphocytes # 0.6 10^3/uL (0.8-4.8); Lymphocytes % 12.2 %; Mean Corpuscular HGB Conc 27.6 g/dL (30.0-36.0); Mean Corpuscular Volume 97.8 fl (81-99); Mean Platelet Volume 10.5 fL (7.4-10.4); Monocytes # 0.5 10^3/uL (0.2-0.9); Monocytes % 10.4 %; Neutrophils # 3.77 10^3/uL (1.8-7.7); Neutrophils % 76.8 %; Nucleated Red Blood Cells % 0 %; Platelet Count 228 10^3/cmm (130-400); Red Blood Count 4.96 10^6/uL (4.1-5.3); Red Cell Distribution Width 13.4 % (12.1-15.1); White Blood Count 4.9 10^3/uL (4.0-10.0)
[2022-09-21 05:32] LABS: Alanine Aminotransferase 56 U/L (0-33); Alkaline Phosphatase 126 U/L (35-105); Anion Gap 11.3 (5-19); Aspartate Amino Transferase 121 U/L (0-32); Blood Urea Nitrogen 41 mg/dL (8-23); C Reactive Protein 93.6 mg/L (0.0-4.9); Calcium 10.8 mg/dL (8.5-10.5); Carbon Dioxide 36 mmol/L (22-29); Chloride 109 mmol/L (98-107); Globulin 3.2 g/dL (1.3-4.6); Glucose 126 mg/dL (65-115); Osmolality Calculated 324 mOsm/kg (285-295); Potassium 5.3 mmol/L (3.5-5.1); Sodium 151 mmol/L (136-145); Total Bilirubin 0.2 mg/dL (0.15-1.2); Total Protein 6.2 g/dL (6.6-8.7)
[2022-09-21 05:37] LABS: D Dimer 4.65 ug/mIFEU (0-0.59)
[2022-09-21 05:45] LABS: Creatine Phosphokinase 1768 U/L (26-192)
[2022-09-21] MEDS: cefTRIAXone 1,000 MG in sodium chloride 0.9% (plus) 50 ML 100 MG IV (06:08)
--- NOTE | 2022-09-21 08:22 | PC.NURSE ---
BEDSIDE REPORT DONE, NOT CHARTED BY PREV NURSE
--- NOTE | 2022-09-21 10:15 | USR_ITS ---
PROCEDURE INFORMATION: Exam: US Duplex Lower Extremity Veins, Bilateral Exam date and time: 09/21/2022 1:46 PM Age: 77 years old Clinical indication: Pain; Leg, lower; Bilateral; Patient HX: Covid+; Additional info: R/O dvt TECHNIQUE: Imaging protocol: Real-time duplex ultrasound of the bilateral extremities with 2-D lamar scale, color Doppler flow and spectral waveform analysis including responses to compression and other maneuvers (when performed) with image documentation. Complete exam focused on the lower extremity veins. COMPARISON: CT lower leg RT wo con* [id number] 10/04/2020 11:34 AM FINDINGS: Right deep veins: Unremarkable. The common femoral, femoral, proximal profunda femoral and popliteal veins are patent without thrombus. Normal Doppler waveforms. Normal compressibility and/or augmentation response. Right superficial veins: Saphenofemoral junction is patent without thrombus. Left deep veins: Unremarkable. The common femoral, femoral, proximal profunda femoral and popliteal veins are patent without thrombus. Normal Doppler waveforms. Normal compressibility and/or augmentation response. Left superficial veins: Saphenofemoral junction is patent without thrombus. Soft tissues: Please note the infragenicular veins were not imaged and the above report Is in reference to the popliteal vein and the veins cephalad to the popliteal fossa to the level of the common femoral vein. US/[place] [id number] IMPRESSION: No evidence of deep vein thrombosis.
--- NOTE | 2022-09-21 10:15 | USCV_ITS ---
Yamileth Edge Age: 77 Gender: F : 1945 Exam Date: 09/21/2022 13:26 Ordering Phys: Ramone Newton MD Technologist: SERG Exam Location: [facility] [place] Indication: chf, aortic stenosis BP: / HR: 76 Rhythm: Sinus Technical Quality: Poor MEASUREMENTS (Male / Female) Normal Values 2D ECHO LV Diastolic Diameter PLAX 5.9 cm 4.2 - 5.9 / 3.9 - 5.3 cm LV Systolic Diameter PLAX 4.5 cm IVS Diastolic Thickness 1.1 cm 0.6 - 1.0 / 0.6 - 0.9 cm IVS Systolic Thickness 1.3 cm LVPW Diastolic Thickness 1.1 cm 0.6 - 1.0 / 0.6 - 0.9 cm LVPW Systolic Thickness 1.1 cm LV Ejection Fraction 2D Teich 46.3 % DOPPLER AV Peak Velocity 228.0 cm/s LVOT Peak Velocity 120.0 cm/s TR Peak Velocity 384.0 cm/s TR Peak Gradient 59.0 mmHg Right Atrial Pressure 9.0 mmHg Pulmonary Artery Systolic Pressu 68.0 mmHg FINDINGS Left Ventricle This is a poor quality limited study. The apical view is the most valuable. Other views are poorly seen. Doppler exam is extremely limited. The left ventricle is upper limit of normal in size. There appears to be hypokinesis in a global sense. The ejection fraction is roughly estimated to be 38 to 40%. Wall motion disturbances cannot be determined. Diastolic function cannot be determined. Right Ventricle Normal right ventricular size and systolic function. Right Atrium Mildly increased right atrial size. Left Atrium Mildly increased left atrial size. Mitral Valve Mitral valve not well visualized. Aortic Valve Aortic valve is not well seen. There is at least mild calcification. No obvious aortic stenosis though interrogation of the valve was not done. Limited Doppler reveals at least mild aortic insufficiency. Tricuspid Valve Tricuspid valve not well visualized. Pulmonic Valve Pulmonic valve not well visualized. Pericardium Normal pericardium without effusion. 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 It is 5.04 cm. IVC Inferior vena cava not visualized. CONCLUSIONS This is a poor quality limited study. The apical view is the most valuable. Other views are poorly seen. Doppler exam is extremely limited. The left ventricle is upper limit of normal in size. There appears to be hypokinesis in a global sense. The ejection fraction is roughly estimated to be 38 to 40%. Wall motion disturbances cannot be determined. Diastolic function cannot be determined. Mildly increased right atrial size. Mildly increased left atrial size. Aortic valve is not well seen. There is at least mild calcification. No obvious aortic stenosis though interrogation of the valve was not done. Limited Doppler reveals at least mild aortic insufficiency. 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 It is 5.04 cm. The previous echo was done only 2 months ago. That study suggested global hypokinesis as well. It also suggested mild aortic stenosis which could not be confirmed on today's study. It also revealed the dilated ascending aorta. This study is unchanged from the previous study. Dr. Domenic Maldonado MD (Electronically Signed) Final Date: 21 September 2022 15:18 S
[2022-09-21] MEDS: levalbuterol 0.63 mg/3 mL Neb INHALATION (14:09)
[2022-09-21] MEDS: ipratropium 0.5 mg/2.5 mL Neb INHALATION (14:10)
--- NOTE | 2022-09-21 14:19 | PC.SLP ---
Patient was not seen today due to strict NPO orders from her physician following an aspiration episode. Yesterday's recommendations were for pureed food/mildly thick liquids, 90 degrees for all oral intake, crush medications and give with food, slow pace of feeding, patient needed to be reminded not to talk with food in her mouth, and liquids should be provided with a spoon. Apparently, some time Friday evening, the patient was given her medication while lying down, it was not crushed, and she was provided liquid with a straw.
[2022-09-21] MEDS: insulin regular-human 10 UNIT in SYRINGE 1 EACH IVP (14:25)
[2022-09-21 15:01] LABS: Glucose Point of Care 132 mg/dL (70-110)
[2022-09-21] MEDS: dextrose 5%-sod chloride 0.45% 1,000 ML 75 ML IV (15:46)
[2022-09-21] MEDS: dexamethasone 10 mg/mL INJ 6 MG IVP (15:47)
--- NOTE | 2022-09-21 16:43 | PC.OT ---
OT services withheld this date per nursing request due to her general medical condition, difficulty breathing, waiting to be on Bipap machine. To attempt on a later date.
--- NOTE | 2022-09-21 17:30 | PM.PN ---
Subjective Subjective: Hospital course, labs appreciated. Today morning seen with patient's daughter and son-in-law at bedside. On examination patient laying in bed in slight discomfort on heated high flow at 55 L 100% saturating 90% with slight tachycardia of heart rate running in low 100s. Patient has remained hemodynamically stable and afebrile in last 24 hours. Patient comfortable, patient is alert only to self. Documented urine output in last 24 hours of 1600 cc. Blood work appreciated. Sodium level of 151 potassium of 5.3, creatinine of 0.8. Had a long goals of care discussion with patient's DPOA including patient's daughter and son at bedside. We discussed that unfortunately patient is in acute respiratory failure secondary to COVID-19 and aspiration pneumonia in addition to congestive heart failure requiring high oxygen supplementation along with acute hypernatremia, hyperkalemia secondary to poor oral intake which is causing worsening of her mentation and she needs IV fluids because of the same. We discussed if her oxygenation does not improve and if she continues to get worse only possible modulation next after this would be BiPAP ventilation as patient is DNR/DNI. We also discussed at this point patient needs to be strict n.p.o. because she is aspirating given her poor mentation. We discussed for now we will start patient on gentle IV hydration hoping her sodium levels will improve and her mentation will also improve while we continue the IV antibiotics, remdesivir and steroids. During the day patient was started on IV hydration and couple of hours later her oxygen saturation started going down to 87 to 88% with worsening of mentation. At that time patient seemed extremely uncomfortable to the family and we discussed about potentially starting patient on BiPAP ventilation while we try to make her comfortable. Family discussed further with each other and wanted to go ahead with comfort measures. It was discussed with the family comfort measures would mean to stop all active treatment and continue oxygen and treat for modalities to keep patient comfortable while nature takes its own course which would eventually mean for . Family verbalized understanding and wants to go with comfort measures. Medications: Reviewed: Yes Vitals/I&O/Wt Last Vital Signs Temp 99.5 F 09/21/22 12:00 Pulse 105 H 09/21/22 15:38 Resp 19 H 09/21/22 14:00 BP 153/89 09/21/22 12:00 Pulse Ox 90 09/21/22 15:38 O2 Del Method 09/21/22 14:00 O2 Flow Rate 55 09/21/22 15:38 FiO2 100 09/21/22 15:38 09/21/22 09/21/22 09/21/22 06:59 14:59 22:59 Intake Total 694.5 / 994.5 50.1 / 50.1 Output Total 800 / 1650 Balance -105.5 / -655.5 50.1 / 50.1 Weight last 48 hrs Weight 129.863 kg Physical Exam Narrative: General exam is a white female, in mild distress because of difficulty in breathing, not awake and alert, on oxygen supplementation with 55 L 100% FiO2 Neck demonstrates torticollis, Cardiovascular tachycardic, 2/6 systolic murmur Lungs diminished breath sounds bilaterally Abdomen is soft nontender positive bowel sounds. Extremities no cyanosis clubbing or edema, cap refill brisk Skin no rash Urinary Catheter Management: Serrano: Cath Placed During This Visit: yes Urinary Catheter Date of Insertion: 09/17/22 Urinary Catheter Time of Insertion: 10:00 Data 09/21/22 05:03 09/21/22 05:03 Micro: Microbiology 09/20/22 15:07 MRSA Culture - Final Nose A&P Assessment and plan (1) Rhabdomyolysis: Patient presents with rhabdo, she was found down. CK slightly worse today It has been tough to hydrate her significantly as she has a history of CHF, and COVID Fall precautions (2) Acute kidney injury: Patient presents with acute kidney injury. Urinalysis appears benign BUN is increasing (3) Acute encephalopathy: Patient appears to have acute encephalopathy. She has history of hallucinations. 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 Mental function is slightly better today. TSH and B12 levels are normal Left carotid unable to be evaluated. Right less than 50% plaque Continue aspirin when able to take p.o. Consider reinitiation of statin after rhabdomyolysis has resolved. Secondary to agitation she has received an occasional dose of Zyprexa (4) Pneumonia due to COVID-19 virus: Secondary to fevers patient was screened for influenza today which was negative, Covid 19 which is positive. Clinical course consistent with COVID-19 pneumonia with hypoxia She had intermittently required BiPAP, but has difficulty leaving it on. Trying high flow oxygen currently. Continue dexamethasone, remdesivir CRP high, procalcitonin normal. Repeat CRP tomorrow Follow LFTs closely while on remdesivir. Slightly higher today. Repeat tomorrow May have component of bacterial pneumonia secondary to consolidation the left lung. Continue Rocephin and azithromycin. Cultures have been drawn and negative to date. MRSA PCR was negative (5) Acute respiratory failure with hypoxia: Changed to high flow today. See notations under Covid 19. Requiring a significant amount of FiO2 at 55%. This is not yet significantly improved. (6) Depression: Patient has had significant depression in the past Currently she is having feelings of worthlessness, but does not appear to have active suicidal thoughts currently. Initiate sertraline 25 mg daily when able to take p.o. Will need close outpatient follow-up (7) Insomnia: Trazodone 100 mg p.o. nightly will be initiated. She has not been sleeping well and this could contribute to her encephalopathy. We will have to wait until she is more aware, taking p.o. (8) Congestive heart failure: Patient with past history of congestive heart failure. Last echo, demonstrated EF of 30 to 35% CT scan demonstrates pneumonia but no evidence of effusion. Qualifiers: Heart failure chronicity: unspecified Heart failure type: unspecified Qualified Code(s): I50.9 - Heart failure, unspecified (9) Pleural effusion: CT chest noncontrast for evaluation of left pleural effusion. This did not demonstrate effusion. Consolidation was noted. This increases chance of bacterial coinfection with COVID. Antibiotics as noted (10) Aortic stenosis: Aortic stenosis noted on last echocardiogram. Valve area may indicate more severe than mild that was noted on flow. DELMI would be required to be evaluated but family reports that they have been told in the past he is not a surgical candidate. (11) Hyperparathyroidism: Calcium is currently normal (12) Torticollis: Chronic (13) Weakness: Patient with significant weakness Physical therapy evaluation will likely need home health Plan Hypernatremia. Start half-normal saline at low rate Multiple other medical problems as outlined in past medical history Patient with past medical history of congestive heart failure was admitted with rhabdomyolysis and aspiration pneumonia as she was found down along with acute kidney injury requiring gentle IV hydration found to have COVID-19 pneumonia continues to worsen with oxygen supplementation going up and worsening of hypernatremia causing more metabolic encephalopathy. After goals of care discussion as mentioned above family decided about comfort measures status. Stop active treatment with IV ceftriaxone remdesivir and dexamethasone. Continue DuoNebs every 6 hours for comfort, famotidine twice daily. No further blood work or chest x-ray. Turn down oxygen supplementation to 2 L for comfort. No further vital check. Morphine and Ativan as needed for pain and air hunger. Attestations Medical Necessity Statement*: Requires further hospitalization for management of hypernatremia, acute respiratory failure in setting of aspiration pneumonia, COVID-19, congestive heart failure while comfort measures are started and High Time for a total of 60 minutes, includes reviewing past or interval history, examining/interviewing patient, placing orders, counseling patient/family/other support, updating patient/family/other support, discussing plan of care with staff, communicating with other healthcare providers, documenting encounter and coordinating care Diagnoses Rhabdomyolysis M62.82 Acute kidney injury N17.9 Acute encephalopathy G93.40 Pneumonia due to COVID-19 virus U07.1; J12.82 Acute respiratory failure with hypoxia J96.01 Depression F32.A Insomnia G47.00 Congestive heart failure I50.9 Heart failure chronicity: unspecified Heart failure type: unspecified Pleural effusion J90 Aortic stenosis I35.0 Hyperparathyroidism E21.3 Torticollis M43.6 Weakness R53.1
[2022-09-21 20:40] LABS: NT Pro B Type Natriuretic Pept 7436 pg/mL (0-450); Procalcitonin 0.18 ng/mL (0-0.5); Vitamin B12 552 pg/mL (232-1245)
[2022-09-21 20:51] LABS: Iron 57 ug/dL (37-145); Percent Saturation 26.5 % (20-50); Total Iron Binding Capacity 215 mcg/dl; Unsaturated Iron Binding 158 ug/dL (112-347)
[2022-09-21] MEDS: morphine 10 mg/0.5 mL oral liq UD SUBLINGUAL (22:15)
[2022-09-21] MEDS: famotidine 20 mg/2 mL INJ IVP (23:32)
[2022-09-21] MEDS: LORazepam 2 mg/mL INJ 1 mL IVP (23:32)
[2022-09-22] MEDS: lanolin oint 7 gm 1 APPLIC TOPICAL (00:54)
--- NOTE | 2022-09-22 02:16 | PC.RESP ---
Patient rapidly weaned off of HHFNC per comfort measures. Patient did not want oxygen put back in nose. Family at bedside and in agreement that patient appeared to pull away and not wantthe oxygen.
[2022-09-22] MEDS: LORazepam 2 mg/mL INJ 1 mL IVP (02:18)
--- NOTE | 2022-09-22 03:40 | PC.NURSE ---
Nursing staff notified that patient had stopped breathing at 0330. Patient verified to be pulseless and without breathing by nurses Karoline Benavidez, RN, Kalyan Hernández, RN and Hector Vega RN. [employer] Supervisor Yojana Mcdonald RN notified at [address] Caicedo notified at 034 that patient at 0330. home of choice is [facility] [place], [place]. Family signed body release to home. [facility] notified at 0345 by this nurse. Sofia [facility] Coordinator confirms that patient is not a candidate at this time and releases the body to the home. Family left with all patient belongings at 0354. Post mortem care provided at this time. [facility] home being notified by this nurse.
--- NOTE | 2022-09-22 03:56 | PC.NURSE ---
at 3740 dr falcon was contacted for d/c of daily scheduled PO medications and IV fluids since pt was NPO and had been transitioned to comfort care. dr salazar
--- NOTE | 2022-09-22 06:41 | PC.NURSE ---
[facility] staff picked up pt at 0555 this am. staff assisted with transfer. paperwork signed and copied
--- NOTE | 2022-09-22 17:41 | PM.DDS ---
Discharge Providers DDS Date of Admission: 09/17/22 12:30 Date Summary Completed: 09/22/22 Attending Provider at Admission: Blayne Denton MD Time of : 03:30 Attending Provider at Discharge: Ramone Newton MD Primary Care Provider: René COLEMAN Diagnoses Hospital Diagnoses (1) Rhabdomyolysis: (2) Acute kidney injury: (3) Acute encephalopathy: (4) Pneumonia due to COVID-19 virus: (5) Acute respiratory failure with hypoxia: (6) Depression: (7) Insomnia: (8) Congestive heart failure: Qualifiers: Heart failure type: unspecified Heart failure chronicity: unspecified Qualified Code(s): I50.9 - Heart failure, unspecified (9) Pleural effusion: (10) Aortic stenosis: (11) Hyperparathyroidism: (12) Torticollis: (13) Weakness: Reason for Visit Reason for Visit fall-no pain Brief History: History as per HPI: Yamileth Edge is a 77 year old female presenting to the emergency department after being found down.? She apparently slipped at home, and was down for 8 to 12 hours.? She reports some pain all over, mainly in her lower extremities.? She was recently in the hospital, from September 28 to the with right lower extremity cellulitis.? At that time her amitriptyline was discontinued.? She has had intermittent severe depression, and had been voicing at home recently that she felt worthless, nobody cares, and there was no reason to live.? Family has removed the gun from her premises.? They have noticed she has hallucinations at time.? They were worried this was related to her not getting the amitriptyline so restarted that last night.? She has not had any fever at home.? No nausea or vomiting.? Patient herself reports pain but no other significant complaints currently. In the emergency department she has had fluids given, and imaging ordered. Summary Date and Time of Date of : 09/22/22 Time of : 03:30 Summary Summary: Patient was admitted to hospital initially for management of rhabdomyolysis, acute metabolic encephalopathy, aspiration pneumonia and acute kidney injury. Given her history of congestive heart failure she was started on gentle IV hydration along with empiric antibiotics.. Her cause for acute metabolic encephalopathy was not sure at start. CT head was done which was concerning for old CVA. Gradually while being on IV fluids she required higher oxygen supplementation and then further work-up was done in which she was found to be positive for COVID-19. Patient was started on treatment with IV remdesivir and steroids along with antibiotics. Her mentation continued to be poor. Kidney functions improved gradually but because of poor oral intake because of concerns for aspiration pneumonia, metabolic encephalopathy she continued to have worsening hypernatremia. When she was started on gentle IV hydration again for hypernatremia her oxygenation worsened again and she required high oxygen supplementation. Further goals of care discussions were done in detail with patient's DPOA at bedside. We discussed that unfortunately patient is in acute respiratory failure secondary to COVID-19 and aspiration pneumonia in addition to congestive heart failure requiring high oxygen supplementation along with acute hypernatremia, hyperkalemia secondary to poor oral intake which is causing worsening of her mentation and she needs IV fluids because of the same.? We discussed if her oxygenation does not improve and if she continues to get worse only possible modulation next after this would be BiPAP ventilation as patient is DNR/DNI.? We also discussed at this point patient needs to be strict n.p.o. because she is aspirating given her poor mentation. We discussed for now we will start patient on gentle IV hydration hoping her sodium levels will improve and her mentation will also improve while we continue the IV antibiotics, remdesivir and steroids. During the day patient was started on IV hydration and couple of hours later her oxygen saturation started going down to 87 to 88% with worsening of mentation. At that time patient seemed extremely uncomfortable to the family and we discussed about potentially starting patient on BiPAP ventilation while we try to make her comfortable. Family discussed further with each other and wanted to go ahead with comfort measures.? It was discussed with the family comfort measures would mean to stop all active treatment and continue oxygen and treat for modalities to keep patient comfortable while nature takes its own course which would eventually mean for .? Family verbalized understanding and wants to go with comfort measures. Eventually patient in a comfortable state with family at bedside at 3:30 AM on 09/22. Additional Data Confirmation of as documented by pronouncing clinician: no pulse, no respirations and no heart sounds Family: at bedside Additional persons at bedside: nursing staff Attending/PCP notified?: I am attending Was code activated?: No Autopsy requested?: No Advance directives?: No Hospice patient?: No Discharge Plan Discharge Patient Disposition: Condition: Stable Prescriptions: No Action tizanidine 2 mg tablet 2 mg PO BID tramadol 50 mg tablet 50 mg PO Q8H PRN (Reason: Pain) furosemide 40 mg tablet 40 mg PO BID@08,16 magnesium oxide 400 mg magnesium capsule 400 mg PO QAM lovastatin 40 mg tablet 80 mg PO BEDTIME Qty: 180 1RF metoprolol succinate 25 mg tablet extended release 24 hr 25 mg PO BID Qty: 180 3RF ascorbic acid (vitamin C) [Vitamin C] 500 mg Tablet 500 mg PO QAM amlodipine 2.5 mg tablet 2.5 mg PO DAILY aspirin 81 mg tablet,delayed release (DR/EC) 81 mg PO QAM amitriptyline 25 mg tablet 25 mg PO BEDTIME lisinopril 10 mg tablet 10 mg PO BEDTIME multivitamin Tablet 1 tab PO DAILY Tylenol Ex Str Rapid Release 500 mg Tablet 1,000 mg PO Q6H PRN (Reason: Pain) Tylenol Arthritis Pain 650 mg Tablet Extended Release 1,300 mg PO Q12H PRN (Reason: Pain) Biofreeze (menthol) 4 % Gel 1 applic TOPICAL TID PRN (Reason: Pain) potassium chloride 20 mEq tablet,ER particles/crystals 20 meq PO QAM Referrals: René Merritt [Primary Care Provider] - Probable Cause of Probable cause of : Respiratory failure DS Attestations Time Spent in /Discharge Care*: greater than 30 min Quality - AMI: AMI present?: No Quality - Stroke: CVA present?: No Symptom Onset Unknown: No Quality - VTE: VTE present?: No Deep Vein Thrombosis/Pulmonary Embolism Present on Admission: No Coding Level of Care Code 05001 Total time (in minutes) for Discharge: 50 Diagnoses Rhabdomyolysis M62.82 Acute kidney injury N17.9 Acute encephalopathy G93.40 Pneumonia due to COVID-19 virus U07.1; J12.82 Acute respiratory failure with hypoxia J96.01 Depression F32.A Insomnia G47.00 Congestive heart failure I50.9 Heart failure type: unspecified Heart failure chronicity: unspecified Pleural effusion J90 Aortic stenosis I35.0 Hyperparathyroidism E21.3 Torticollis M43.6 Weakness R53.1
== END 2022-09-22 05:55 | disposition home or self-care (01) | DRG 177 ==
LOC: ER 12:41 → MEDSURG 15:31
PROVIDERS: Admitting Provider Internal Medicine; Emergency Provider Family Medicine; PCP Family Medicine; Visit Provider Student in an Organized Health Care Education/Training Program
DX: U07.1 COVID-19 (principal); G93.41 Metabolic encephalopathy; J96.01 Acute respiratory failure with hypoxia; J69.0 Pneumonitis due to inhalation of food and vomit; M62.82 Rhabdomyolysis; N17.9 Acute kidney failure, unspecified; E87.0 Hyperosmolality and hypernatremia; F32.A Depression, unspecified; G47.00 Insomnia, unspecified; I35.0 Nonrheumatic aortic (valve) stenosis; I11.0 Hypertensive heart disease with heart failure; I50.9 Heart failure, unspecified; E21.3 Hyperparathyroidism, unspecified; M43.6 Torticollis; E78.2 Mixed hyperlipidemia; E87.5 Hyperkalemia; Z66 Do not resuscitate; Z51.5 Encounter for palliative care; Z86.73 Personal history of transient ischemic attack (TIA), and cerebral infarction without residual deficits
CPT/HCPCS: 36415; 36416; 51702; 70450; 71045; 71250; 72125; 73521; 80053; 81003; 82550; 82607; 82962; 83540; 83550; 83605; 83735; 83880; 84145; 84443; 85025; 85378; 86140; 87635; 87641; 87804; 92523; 92526; 92610; 93005; 93308; 93880; 93970; 94640; 94660; 94762; 96360; 96372; 97110; 97161; 97167; 97530; 97535; 99285; J0248; J0456; J0696; J1100; J1630; J1644; J1815; J1940; J2060; J2270; J2405; J3490; J7030; J7040; J7050; J7614; J7644; J7799